=== PATIENT | male | born 1950 | race Caucasian/White ===

== ENCOUNTER 2017-10-01 16:48 | Emergency (ER) | payer MEDICARE, BC ==
[~2017-10-01] VITALS: Ht 172.7 cm; Wt 79.4 kg
--- NOTE | 2017-10-01 16:40 | Emergency Room Report ---
History of Present Illness General Source: Patient, EMS Present Illness HPI Patient is 67-year-old male who presented after increased seizure activity. The patient prior history of seizure disorder and lewy body dementia patient was noted to have recently had a seizure medications adjusted. The patient takes Keppra for seizures and previously had been given Keppra 3 times a day. The patient subsequently been noted to have Keppra 500mg 1 1/2 twice a day. The patient had been having increased nonproductive cough and chest pain. The patient had a recent sick contact Allergies: Coded Allergies: No Known Allergies (Unverified , 10/01/17) Patient History Past Medical History: see triage record Reviewed Nursing Documentation: PMH: Agreed, PSxH: Agreed Review of Systems All Other Systems: limited - by mental status Physical Exam Sp02 EP Interpretation: reviewed, normal General Appearance: normal inspection, well appearing, no apparent distress, alert Head: atraumatic ENT: normal ENT inspection, hearing grossly normal, normal voice Neck: normal inspection, full range of motion, supple, no bony tend Respiratory: normal inspection, lungs clear, normal breath sounds, no respiratory distress, no retraction, no wheezing Cardiovascular #1: regular rate, rhythm, no edema Gastrointestinal: normal inspection, normal bowel sounds, non tender, soft, no guarding, no hernia Genitourinary: no CVA tenderness Musculoskeletal: normal inspection, back normal, normal range of motion Neurologic: normal inspection, alert, responsive, art appraiser III-XII nml as tested Psychiatric: normal inspection, judgement/insight normal, mood/affect normal Skin: normal inspection, normal color, no rash Medical Decision Making Diagnostic Impression: Primary Impression: Seizure Additional Impression: Seizure disorder ER Course The patient presented after a witnessed seizure. Differential diagnosis included was not limited to subtherapeutic anticonvulsant level, acute infection, electrolyte abnormality among others.Because of complexity of patient 's case laboratory testing and imaging studies were ordered. EKG interpreted by me showed normal sinus rhythm with a rate of 66 specific T wave changes.The patient noted have a minimally elevated white blood count consistent with recent seizure. Laboratory testing was otherwise unremarkable. The patient was loaded with IV Keppra. The patient appears to have an upper respiratory infection at this time. The patient was advised to had taken extra dose of his Keppra at night. 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 The patient is advised to follow up with primary care doctor in 1-2 days. Patient is advised to return if any worsening condition or if any changes in status that are concerning. Labs Test 10/01/17 17:00 10/01/17 17:14 White Blood Count 12.6 K/UL (4.8-10.8) Red Blood Count 3.28 M/UL (4.70-6.10) Hemoglobin 11.1 G/DL (14.2-18.0) Hematocrit 34.9 % (42.0-52.0) Mean Corpuscular Volume 107 FL (80-99) Mean Corpuscular Hemoglobin 33.8 PG (27.0-31.0) Mean Corpuscular Hemoglobin Concent 31.7 G/DL (32.0-36.0) Red Cell Distribution Width 15.8 % (11.6-14.8) Platelet Count 261 K/UL (150-450) Mean Platelet Volume 5.4 FL (6.5-10.1) Neutrophils (%) (Auto) 72.9 % (45.0-75.0) Lymphocytes (%) (Auto) 14.5 % (20.0-45.0) Monocytes (%) (Auto) 9.5 % (1.0-10.0) Eosinophils (%) (Auto) 1.9 % (0.0-3.0) Basophils (%) (Auto) 1.2 % (0.0-2.0) Sodium Level 136 MMOL/L (136-145) Potassium Level 4.4 MMOL/L (3.5-5.1) Chloride Level 100 MMOL/L (98-107) Carbon Dioxide Level 22 MMOL/L (21-32) Anion Gap 14 mmol/L (5-15) Blood Urea Nitrogen 15 mg/dL (7-18) Creatinine 1.2 MG/DL (0.55-1.30) Estimat Glomerular Filtration Rate > 60 mL/min (>60) Glucose Level 114 MG/DL (74-106) Calcium Level 9.6 MG/DL (8.5-10.1) Total Bilirubin 0.5 MG/DL (0.2-1.0) Aspartate Amino Transf (AST/SGOT) 14 U/L (15-37) Alanine Aminotransferase (ALT/SGPT) < 6 U/L (12-78) Alkaline Phosphatase 115 U/L (46-116) Troponin I 0.000 ng/mL (0.000-0.056) Total Protein 7.2 G/DL (6.4-8.2) Albumin 3.7 G/DL (3.4-5.0) Globulin 3.5 g/dL Albumin/Globulin Ratio 1.1 (1.0-2.7) Urine Color Yellow Urine Appearance Clear Urine pH 5 (4.5-8.0) Urine Specific [place] 1.025 (1.005-1.035) Urine Protein 2+ (NEGATIVE) Urine Glucose (UA) Negative (NEGATIVE) Urine Ketones 1+ (NEGATIVE) Urine Occult Blood 1+ (NEGATIVE) Urine Nitrite Negative (NEGATIVE) Urine Bilirubin Negative (NEGATIVE) Urine Urobilinogen Normal MG/DL (0.0-1.0) Urine Leukocyte Esterase Negative (NEGATIVE) Urine RBC 2-4 /HPF (0 - 0) Urine WBC 0-2 /HPF (0 - 0) Urine Squamous Epithelial Cells None /LPF (NONE/OCC) Urine Amorphous Sediment Few /LPF (NONE) Urine Bacteria Few /HPF (NONE) EKG Diagnostic Results Rate: normal - 66 Rhythm: NSR ST Segments: no acute changes Status: improved Disposition: HOME, SELF-CARE Condition: Stable Angel Funez Oct 01, 2017 16:40
[2017-10-01 16:50] VITALS: BP 126/71
[2017-10-01] MEDS ORDERED: levETIRAcetam 500mg/NS100ml 100 ML IVPB ONE (17:00)
[2017-10-01 17:21] LABS: BASOPHILS % (AUTO) 1.2 % (0.0-2.0); EOSINOPHILS % (AUTO) 1.9 % (0.0-3.0); LYMPHOCYTES % (AUTO) 14.5 % (20.0-45.0); MEAN CORPUSCULAR HEMOGLOBIN 33.8 PG (27.0-31.0); MEAN CORPUSCULAR HGB CONC 31.7 G/DL (32.0-36.0); MEAN CORPUSCULAR VOLUME 107 FL (80-99); MEAN PLATELET VOLUME 5.4 FL (6.5-10.1); MONOCYTES % (AUTO) 9.5 % (1.0-10.0); NEUTROPHILS % (AUTO) 72.9 % (45.0-75.0); PLATELET COUNT 261 K/UL (150-450); RED BLOOD COUNT 3.28 M/UL (4.70-6.10); RED CELL DISTRIBUTION WIDTH 15.8 % (11.6-14.8); WHITE BLOOD COUNT 12.6 K/UL (4.8-10.8)
[2017-10-01 17:31] LABS: ANION GAP 14 mmol/L (5-15); CALCIUM 9.6 MG/DL (8.5-10.1); CARBON DIOXIDE 22 MMOL/L (21-32); CHLORIDE 100 MMOL/L (98-107); CREATININE 1.2 MG/DL (0.55-1.30); GLOMERULAR FILTRATION RATE > 60 mL/min (>60); POTASSIUM 4.4 MMOL/L (3.5-5.1); SODIUM 136 MMOL/L (136-145)
[2017-10-01 17:36] LABS: ALANINE AMINOTRANSFERASE < 6 U/L (12-78); ALBUMIN/GLOBULIN RATIO 1.1 (1.0-2.7); ASPARTATE AMINO TRANSFERASE 14 U/L (15-37); TOTAL PROTEIN 7.2 G/DL (6.4-8.2)
[2017-10-01 17:36] LABS: APPEARANCE,URINE CLEAR; KETONES,URINE 1+ (NEGATIVE); LEUKOCYTE ESTERASE ,URINE NEGATIVE (NEGATIVE); NITRITE,URINE NEGATIVE (NEGATIVE); PH,URINE 5 (4.5-8.0); PROTEIN,URINE 2+ (NEGATIVE); UROBILINOGEN,URINE NORMAL MG/DL (0.0-1.0)
[2017-10-01 17:43] LABS: AMORPHOUS SEDIMENT,UR FEW /LPF; BACTERIA,URINE FEW /HPF; WBC,URINE 0-2 /HPF (0 - 0)
[2017-10-01 18:04] VITALS: BP 120/68
[2017-10-01 18:14] VITALS: BP 120/68
--- NOTE | 2017-10-03 11:00 | Cardiology Report ---
APPROVED REPORT EKG Measurement Heart [id number] Normal sinus rhythm Nonspecific T wave abnormality Abnormal ECG
== END 2017-10-01 18:14 | disposition home or self-care (01) ==
LOC: EDBD 16:48 → EMR 18:08
DX: G40.409 Other generalized epilepsy and epileptic syndromes, not intractable, without status epilepticus (principal)
CPT/HCPCS: 36415; 80053; 81001; 84484; 85025; 86710; 93005; 96365; 99284; J1953

== ENCOUNTER 2017-10-15 16:32 | Inpatient (IN) | payer MEDICARE, BC ==
[~2017-10-15] VITALS: Ht 177.8 cm; Wt 89.8 kg
[2017-10-15 17:05] VITALS: BP 115/80
[2017-10-15 17:19] LABS: BASOPHILS % (AUTO) 0.8 % (0.0-2.0); EOSINOPHILS % (AUTO) 2.1 % (0.0-3.0); HEMATOCRIT 32.1 % (42.0-52.0); HEMOGLOBIN 10.5 G/DL (14.2-18.0); LYMPHOCYTES % (AUTO) 11.5 % (20.0-45.0); MEAN CORPUSCULAR VOLUME 107 FL (80-99); NEUTROPHILS % (AUTO) 73.6 % (45.0-75.0); PLATELET COUNT 117 K/UL (150-450); RED CELL DISTRIBUTION WIDTH 14.1 % (11.6-14.8); WHITE BLOOD COUNT 9.7 K/UL (4.8-10.8)
[2017-10-15 17:34] LABS: ANION GAP 14 mmol/L (5-15); BLOOD UREA NITROGEN 35 mg/dL (7-18); CALCIUM 7.9 MG/DL (8.5-10.1); CARBON DIOXIDE 21 MMOL/L (21-32); CHLORIDE 99 MMOL/L (98-107); CREATININE 1.1 MG/DL (0.55-1.30); POTASSIUM 4.4 MMOL/L (3.5-5.1); SODIUM 134 MMOL/L (136-145)
--- NOTE | 2017-10-15 17:35 | Emergency Room Report ---
History of Present Illness General Chief Complaint: Generalized Weakness Source: Family Member Present Illness HPI Patient presents with for complaints of general weakness and syncopal episode Patient had questionable near syncope versus syncopal Of her life felt that there was a moment of labs of consciousness Patient himself appears weak However he is awake and alert reports patient has amaury body dementia and is on Adderall Patient has neurologist another specialist physicians at [facility] to have increased his Adderall recently Patient otherwise himself denies any chest pain or shortness of breath denies any vomiting he did have diarrhea over the past several days Unknown regarding any obvious fevers Allergies: Coded Allergies: No Known Allergies (Unverified , 10/01/17) Patient History Past Medical History: see triage record Pertinent Family History: none Reviewed Nursing Documentation: PMH: Agreed, PSxH: Agreed Nursing Documentation-PMH Hx Hypertension: Yes Hx Seizures: Yes Review of Systems All Other Systems: negative except mentioned in HPI Physical Exam Vital Signs Date Time Temp Pulse Resp B/P (MAP) Pulse Ox O2 Delivery O2 Flow Rate FiO2 10/15/17 16:26 97.2 76 16 110/60 97 10/15/17 17:05 Room Air Sp02 EP Interpretation: reviewed, normal General Appearance: no apparent distress, other - appears pale and weak Head: normocephalic, atraumatic Eyes: bilateral eye PERRL, bilateral eye EOMI ENT: hearing grossly normal, TMs + canals normal, uvula midline, dry mucus membranes Neck: full range of motion, supple, no meningismus, no bony tend Respiratory: lungs clear, normal breath sounds, no rhonchi, no respiratory distress, no retraction, no accessory muscle use Cardiovascular #1: normal peripheral pulses, regular rate, rhythm, no edema, no gallop, no JVD, no murmur Gastrointestinal: normal bowel sounds, non tender, soft, no mass, no organomegaly, non-distended, no guarding, no hernia, no pulsatile mass, no rebound Genitourinary: no CVA tenderness Musculoskeletal: normal inspection Neurologic: oriented x3, responsive, canceling and cutting control clerk III-XII nml as tested, motor strength/ tone normal, sensory intact Psychiatric: mood/affect normal Skin: normal color, no rash, warm/dry, palpation normal Lymphatic: normal inspection, no adenopathy Procedures Critical Care Time Critical Care Time 70 minutes for multiple re\re evaluations: Diagnoses and findings concerning for life-threatening pathology and possible , not including any procedural time Medical Decision Making Diagnostic Impression: Primary Impression: Saddle pulmonary embolus Additional Impressions: Pancreatitis Syncope ER Course Patient is a fairly complex patient with multiple differential to consideration including but not limited to cardiac cardiopulmonary and vascular emergencies Patient's imaging study reveals some questionable abnormalities in the lower lung hayes CAT scan imaging dedicated to the lungs reveals bilateral emboli including a settling embolus Patient clinically maintaining appropriate oxygenation Hemodynamically also improving with blood pressure and general evaluation Patient however is extremely critical Initial Lovenox provided and the patient is initiated on heparin drip and will require ICU admission With regards to thrombolytics patient does not show, any hemodynamic pathology at this time patient does not appear short of breath is not tachypneic Platelets are low And patient will have further ICU admission Labs Test 10/15/17 16:50 10/15/17 17:30 10/15/17 21:10 White Blood Count 9.7 K/UL (4.8-10.8) Red Blood Count 3.00 M/UL (4.70-6.10) Hemoglobin 10.5 G/DL (14.2-18.0) Hematocrit 32.1 % (42.0-52.0) Mean Corpuscular Volume 107 FL (80-99) Mean Corpuscular Hemoglobin 35.0 PG (27.0-31.0) Mean Corpuscular Hemoglobin Concent 32.7 G/DL (32.0-36.0) Red Cell Distribution Width 14.1 % (11.6-14.8) Platelet Count 117 K/UL (150-450) Mean Platelet Volume 6.8 FL (6.5-10.1) Neutrophils (%) (Auto) 73.6 % (45.0-75.0) Lymphocytes (%) (Auto) 11.5 % (20.0-45.0) Monocytes (%) (Auto) 12.0 % (1.0-10.0) Eosinophils (%) (Auto) 2.1 % (0.0-3.0) Basophils (%) (Auto) 0.8 % (0.0-2.0) Sodium Level 134 MMOL/L (136-145) Potassium Level 4.4 MMOL/L (3.5-5.1) Chloride Level 99 MMOL/L (98-107) Carbon Dioxide Level 21 MMOL/L (21-32) Anion Gap 14 mmol/L (5-15) Blood Urea Nitrogen 35 mg/dL (7-18) Creatinine 1.1 MG/DL (0.55-1.30) Estimat Glomerular Filtration Rate > 60 mL/min (>60) Glucose Level 100 MG/DL (74-106) Lactic Acid Level 7.80 mmol/L (0.66-2.22) Calcium Level 7.9 MG/DL (8.5-10.1) Total Bilirubin 0.7 MG/DL (0.2-1.0) Aspartate Amino Transf (AST/SGOT) 21 U/L (15-37) Alanine Aminotransferase (ALT/SGPT) 8 U/L (12-78) Alkaline Phosphatase 95 U/L (46-116) Total Creatine Kinase 57 U/L (26-308) Creatine Kinase MB 2.0 NG/ML (0.0-3.6) Creatine Kinase MB Relative Index 3.5 Troponin I 0.011 ng/mL (0.000-0.056) Total Protein 5.5 G/DL (6.4-8.2) Albumin 3.0 G/DL (3.4-5.0) Globulin 2.5 g/dL Albumin/Globulin Ratio 1.2 (1.0-2.7) Lipase 1035 U/L (73-393) Urine Color Yellow Urine Appearance Clear Urine pH 6 (4.5-8.0) Urine Specific [place] 1.015 (1.005-1.035) Urine Protein 2+ (NEGATIVE) Urine Glucose (UA) Negative (NEGATIVE) Urine Ketones 2+ (NEGATIVE) Urine Occult Blood 3+ (NEGATIVE) Urine Nitrite Negative (NEGATIVE) Urine Bilirubin Negative (NEGATIVE) Urine Urobilinogen Normal MG/DL (0.0-1.0) Urine Leukocyte Esterase 1+ (NEGATIVE) Urine RBC 5-10 /HPF (0 - 0) Urine WBC 2-4 /HPF (0 - 0) Urine Squamous Epithelial Cells None /LPF (NONE/OCC) Urine Amorphous Sediment Few /LPF (NONE) Urine Bacteria Few /HPF (NONE) EKG Diagnostic Results Rate: normal Rhythm: NSR ST Segments: other - ST changes, anterolateral Rhythm Strip Diag. Results EP Interpretation: yes Rate: 78 Rhythm: NSR, no PVC's, no ectopy Chest X-Ray Diagnostic Results Chest X-Ray Diagnostic Results : Chest X-Ray Ordered: Yes # of Views/Limited/Complete: 1 View Indication: Chest Pain EP Interpretation: Yes Interpretation: no consolidation, no effusion, no pneumothorax Impression: No acute disease Electronically Signed by: Connie Quintero, DO CT/MRI/US Diagnostic Results CT/MRI/US Diagnostic Results : Impression CT abdomen pelvis bilateral lower lobe pulmonary embolism suspected incompletely visualized mild sigmoid diverticulitis no abscess CT chest: Bilateral central/low bar/subsegmental PE/including saddle PE no aortic dissection Last Vital Signs Date Time Temp Pulse Resp B/P (MAP) Pulse Ox O2 Delivery O2 Flow Rate FiO2 10/15/17 17:05 97.2 72 15 115/80 100 Room Air Status: improved Disposition: ADMITTED INPATIENT Condition: Critical Referrals: NOT CHOSEN IPA/,REFERRING (PCP) CONNIE QUINTERO D.O. Oct 15, 2017 17:35
[2017-10-15 17:48] LABS: ALANINE AMINOTRANSFERASE 8 U/L (12-78); ALBUMIN/GLOBULIN RATIO 1.2 (1.0-2.7); ALKALINE PHOSPHATASE 95 U/L (46-116); ASPARTATE AMINO TRANSFERASE 21 U/L (15-37); BILIRUBIN,TOTAL 0.7 MG/DL (0.2-1.0); CREATINE KINASE 57 U/L (26-308)
[2017-10-15 18:00] LABS: APPEARANCE,URINE CLEAR; BILIRUBIN, URINE NEGATIVE (NEGATIVE); GLUCOSE, URINE (UA) NEGATIVE (NEGATIVE); KETONES,URINE 2+ (NEGATIVE); LEUKOCYTE ESTERASE ,URINE 1+ (NEGATIVE); NITRITE,URINE NEGATIVE (NEGATIVE); PH,URINE 6 (4.5-8.0); PROTEIN,URINE 2+ (NEGATIVE); UROBILINOGEN,URINE NORMAL MG/DL (0.0-1.0)
[2017-10-15 18:05] LABS: COLOR,URINE YELLOW
[2017-10-15 18:20] VITALS: BP 120/79
[2017-10-15] MEDS ORDERED: ASPIRIN EC81 MG ORAL (18:55)
[2017-10-15] MEDS ORDERED: ATORVASTATIN CA20 MG ORAL (18:56)
[2017-10-15] MEDS ORDERED: SINEMET 25-1001 EAC1 ORAL (18:57)
[2017-10-15] MEDS ORDERED: SINEMET CR 50-1 EACH ORAL (18:58)
[2017-10-15 19:00] VITALS: BP 103/43
[2017-10-15] MEDS ORDERED: NAMENDA XR28 MG PO (19:02)
[2017-10-15] MEDS ORDERED: LEVETIRACETAM500 MG ORAL (19:03)
[2017-10-15] MEDS ORDERED: ADDERAL20 MG ORAL (19:05)
[2017-10-15] MEDS ORDERED: DONEPEZIL HCL10 MG ORAL (19:08)
[2017-10-15] MEDS ORDERED: DOXEPIN HCL10 MG ORAL (19:09)
[2017-10-15] MEDS ORDERED: VITAMIN D250000 UNI1 ORAL (19:10)
[2017-10-15] MEDS ORDERED: NEXIUM40 MG ORAL (19:11)
[2017-10-15] MEDS ORDERED: FLECAINIDE ACET50 MG ORAL (19:13)
[2017-10-15] MEDS ORDERED: FLUOXETINE HCL10 MG ORAL (19:15)
[2017-10-15] MEDS ORDERED: TOPROL XL25 MG ORAL (19:16)
[2017-10-15] MEDS ORDERED: NUPLAZID17 MG PO (19:17)
[2017-10-15] MEDS ORDERED: SEROQUEL25 MG ORAL (19:18)
[2017-10-15] MEDS ORDERED: ALTACE5 MG ORAL (19:19)
[2017-10-15] MEDS ORDERED: TADALAFIL5 MG PO (19:20)
[2017-10-15] MEDS ORDERED: Solu-MEDROL 125mg Inj IVP ONE (19:30)
[2017-10-15] MEDS ORDERED: Enoxaparin 80mg Inj SUBQ ONE (19:30)
[2017-10-15 21:00] VITALS: BP 145/59
[2017-10-15] MEDS ORDERED: Heparin 25,000u/D5W 500ml 500 ML IV SCH (21:30)
[2017-10-15] MEDS ORDERED: Heparin 5000 units/ml inj IV ONE (21:30)
[2017-10-15 22:00] VITALS: BP 153/103
[2017-10-15 23:00] VITALS: BP 158/86
[2017-10-15] MEDS ORDERED: Metoprolol Succinate XL 25mg tab ORAL ONE (23:45)
[2017-10-16] VITALS (15 sets, daily range): BP systolic 138–180; BP diastolic 74–100
[2017-10-16] MEDS ORDERED: Metoprolol Succinate XL 25mg tab ORAL SCH ×2 (09:00→21:00)
[2017-10-16 10:29] LABS: HEMATOCRIT 33.6 % (42.0-52.0); HEMOGLOBIN 10.8 G/DL (14.2-18.0); MEAN CORPUSCULAR VOLUME 107 FL (80-99); PLATELET COUNT 117 K/UL (150-450); RED BLOOD COUNT 3.14 M/UL (4.70-6.10); RED CELL DISTRIBUTION WIDTH 14.1 % (11.6-14.8); WHITE BLOOD COUNT 6.6 K/UL (4.8-10.8)
--- NOTE | 2017-10-16 10:34 | Diagnostic Imaging Report ---
Indication: Chest pain Technique: Continuous helical transaxial imaging of the chest was obtained from the thoracic inlet to the upper abdomen during rapid intravenous contrast administration. Arterial phase of enhancement obtained. Coronal 2-D reformats were also obtained and maximum intensity projection images in multiple planes. Study obtained in a Siemens sensation [address] Automatic Exposure Control was utilized. Total Dose length Product (DLP): 862.[address] Dose Index Volume (CTDIvol): 0.17, 12.62, 25.25, 22.41 mGy Comparison: None Findings: There is fairly extensive filling defect present within the central pulmonary arteries extending into lobar and segmental branches bilaterally consistent with pulmonary embolus. There is no reflux contrast into the IVC. There is no right heart enlargement identified on this examination. The lungs are essentially clear with the exception of some minimal posterior basilar reticulation. The aorta is normal in caliber. There is no dissection. Some calcification of the wall of the aorta noted. Visualized upper abdomen shows low-attenuation of the liver. IMPRESSION: Extensive bilateral pulmonary embolus. Atherosclerotic disease. Minimal posterior basal atelectasis Fatty liver [facility] has communicated the preliminary results to the Emergency Department. Their findings are largely concordant with this report. The CT scanner at [facility] is accredited by the [employer] and the scans are performed using dose optimization techniques as appropriate to a performed exam including Automatic Exposure control.
--- NOTE | 2017-10-16 10:37 | Diagnostic Imaging Report ---
Indication: Abdominal pain Technique: Continuous helical transaxial imaging of the abdomen and pelvis was obtained from the lung bases to the pubic symphysis during intravenous contrast administration. Coronal 2-D reformats were also obtained. Study obtained in a Siemens sensation [address] Automatic Exposure Control was utilized. Total Dose length Product (DLP): 929.[address] Dose Index Volume (CTDIvol): 16.14 mGy Comparison: None Findings: Partial visualization of filling defects within branches of the pulmonary artery demonstrated bilaterally on this study. Subsequent CTA was performed. Please refer to the CTA report. The liver is low in attenuation consistent with fatty infiltration. There is a small umbilical hernia containing fat. Aorta is moderately calcified. Perinephric stranding noted nonspecific in nature. No free fluid or free air identified. Diverticula noted in the colon. Perisigmoid soft tissue stranding noted, mild in degree consistent with diverticulitis. No abscess is identified. Urinary bladder is grossly unremarkable. There is no hydronephrosis. IMPRESSION: Sigmoid diverticulitis. No abscess. Fatty liver. Atherosclerotic disease Perinephric stranding nonspecific. Note: Patient has extensive bilateral pulmonary embolus. Please refer to the CTA chest for more information. The CT scanner at [facility] is accredited by the [employer] and the scans are performed using dose optimization techniques as appropriate to a performed exam including Automatic Exposure control.
[2017-10-16 10:51] LABS: ALANINE AMINOTRANSFERASE 10 U/L (12-78); ALBUMIN 3.2 G/DL (3.4-5.0); ALBUMIN/GLOBULIN RATIO 1.1 (1.0-2.7); ALKALINE PHOSPHATASE 95 U/L (46-116); ANION GAP 11 mmol/L (5-15); ASPARTATE AMINO TRANSFERASE 22 U/L (15-37); BILIRUBIN,TOTAL 0.7 MG/DL (0.2-1.0); BLOOD UREA NITROGEN 28 mg/dL (7-18); CALCIUM 7.6 MG/DL (8.5-10.1); CARBON DIOXIDE 21 MMOL/L (21-32); CHLORIDE 101 MMOL/L (98-107); POTASSIUM 4.3 MMOL/L (3.5-5.1); SODIUM 133 MMOL/L (136-145)
[2017-10-16] MEDS ORDERED: Heparin 5000 units/ml inj IV ONE (11:30)
[2017-10-16] MEDS: Heparin 25,000u/D5W 500ml (VTE/AF) IV SCH ×2 (12:11→20:16)
--- NOTE | 2017-10-16 12:22 | Diagnostic Imaging Report ---
Indication: Chest pain Comparison: None A single view chest radiograph was obtained. Findings: Cardiomediastinal appearance is within normal limits for age. Aorta is mildly calcified. Pulmonary vascularity is appropriate. The diaphragmatic contour is smooth and costophrenic angles are sharp. No pleural effusions are identified. The bones are unremarkable. Impression: No acute findings
--- NOTE | 2017-10-16 12:55 | GI Initial Consult Note ---
[facility] N.P. 10/16/17 1255: History of Present Illness General Date patient seen: Oct 16, 2017 Time patient seen: 12:54 Reason for Hospitalization: Generalized Weakness Referring physician: JAIRO JIMENEZ Reason for Consultation: PANCREATITIS Present Illness HPI Patient presents with for complaints of general weakness and syncopal episode Patient had questionable near syncope versus syncopal Of her life felt that there was a moment of labs of consciousness Patient himself appears weak However he is awake and alert reports patient has low body dementia and is on Adderall Patient has neurologist another specialist physicians at [facility] to have increased his Adderall recently Patient otherwise himself denies any chest pain or shortness of breath denies any vomiting he did have diarrhea over the past several days Unknown regarding any obvious fevers GI consulted for elevated lipase. HPI as noted above. Patient seen in ER, awake A&Ox3 NAD with no active s/sx of N/V/D. Denies any abdominal pain at this time. C/o of diarrhea x 4-5 days. Abdomen is soft, non tender, tympanic. Pt states he is able to pass gas. States he has had an upper endoscopy, but unsure. No history of colonoscopy. The patient admit to being a ETOH user, possible abuser, has about 4 glasses of wine daily. Denies tobacco and drug use. CT AP shows PE, sigmoid diverticulitis and fatty liver. He presents today with macrocytic hyperchromic anemia, elevated lipase levels and hypoalbuminemia. Procedure: CT Abdomen Pelvis w/Contrast Indication: Abdominal pain IMPRESSION: See full report. Sigmoid diverticulitis. No abscess. Fatty liver. Atherosclerotic disease Perinephric stranding nonspecific. Note: Patient has extensive bilateral pulmonary embolus. Please refer to the CTA chest for more information. Home Meds Reported Medications Tadalafil (Tadalafil) 5 Mg Tablet, 5 MG PO ONCE Y for ERECTILE DYSFUNCTION, TAB 10/15/17 Ramipril* (ALTACE*) 5 Mg Capsule, 5 MG ORAL TWICE A DAY, CAP 10/15/17 Quetiapine Fumarate* (SEROQUEL*) 25 Mg Tablet, 25 MG ORAL TWICE A DAY Y for Agitation, TAB 10/15/17 Pimavanserin Tartrate (Nuplazid) 17 Mg Tablet, 17 MG PO BID, TAB 10/15/17 Metoprolol Succinate* (TOPROL XL*) 25 Mg Tab.er.24h, 25 MG ORAL BID, TAB 10/15/17 Fluoxetine Hcl* (FLUOXETINE HCL*) 10 Mg Capsule, 10 MG ORAL DAILY, CAP 10/15/17 Flecainide Acetate* (TAMBOCOR*) 50 Mg Tablet, 50 MG ORAL TWICE A DAY, TAB 10/15/17 Esomeprazole Magnesium (NEXIUM) 40 Mg Capsule.dr, 40 MG ORAL BIDAC, CAP 10/15/17 Ergocalciferol (Vitamin D2)* (VITAMIN D*) 50,000 Unit Capsule, 24394 UNIT ORAL ONCE A WEEK, CAP 10/15/17 Doxepin HCl (Doxepin HCl) 10 Mg Capsule, 10 MG ORAL BEDTIME, #30 CAP 0 Refills 10/15/17 Donepezil Hcl* (DONEPEZIL HCL*) 10 Mg Tablet, 10 MG ORAL DAILY, TAB 10/15/17 Dextroamphetamine/Amphetamine (Adderall 20 mg Tablet) 20 Mg Tablet, 7.5 MG ORAL DAILY, TAB 10/15/17 Levetiracetam* (LEVETIRACETAM*) 500 Mg Tablet, 1000 MG ORAL TWICE A DAY, #60 TAB 0 Refills 10/15/17 Memantine Hcl (NAMENDA XR) 28 Mg Cap.spr.24, 28 MG PO DAILY, CAP 10/15/17 Carbidopa/Levodopa Cr 50-200* (SINEMET CR 50-200 TABLET*) 1 Each Tablet.er, 2 TAB ORAL QHS, TAB 10/15/17 Carbidopa/Levodopa 25-100 Mg* (SINEMET 25-100 MG TABLET*) 1 Each Tablet, 5 TAB ORAL THREE TIMES A DAY, TAB 10/15/17 Atorvastatin Calcium* (ATORVASTATIN CALCIUM*) 20 Mg Tablet, 20 MG ORAL BEDTIME, TAB 10/15/17 Aspirin Ec* (ASPIRIN EC*) 81 Mg Tablet.dr, 81 MG ORAL DAILY, TAB 10/15/17 Med list reviewed/reconciled: Yes Allergies: Coded Allergies: No Known Allergies (Unverified , 10/01/17) Patient History History Provided By: Patient, Medical Record PMH Narrative Past Medical History: see triage record Pertinent Family History: none Reviewed Nursing Documentation: PMH: Agreed, PSxH: Agreed Nursing Documentation-PMH Hx Hypertension: Yes Hx Seizures: Yes Social History: Reports: alcohol use - 4 glasses of wine daily Review of Systems All Other Systems: negative except mentioned in HPI Physical Exam Vital Signs Date Time Temp Pulse Resp B/P (MAP) Pulse Ox O2 Delivery O2 Flow Rate FiO2 10/15/17 16:26 97.2 76 16 110/60 97 10/15/17 17:05 Room Air 10/15/17 21:00 2.0 10/16/17 07:20 96 Sp02 EP Interpretation: reviewed, normal Labs Laboratory Tests Test 10/15/17 16:50 10/15/17 17:30 10/15/17 21:10 10/16/17 10:15 White Blood Count 9.7 K/UL (4.8-10.8) 6.6 K/UL (4.8-10.8) Red Blood Count 3.00 M/UL (4.70-6.10) L 3.14 M/UL (4.70-6.10) L Hemoglobin 10.5 G/DL (14.2-18.0) L 10.8 G/DL (14.2-18.0) L Hematocrit 32.1 % (42.0-52.0) L 33.6 % (42.0-52.0) L Mean Corpuscular Volume 107 FL (80-99) H 107 FL (80-99) H Mean Corpuscular Hemoglobin 35.0 PG (27.0-31.0) H 34.3 PG (27.0-31.0) H Mean Corpuscular Hemoglobin Concent 32.7 G/DL (32.0-36.0) 32.0 G/DL (32.0-36.0) Red Cell Distribution Width 14.1 % (11.6-14.8) 14.1 % (11.6-14.8) Platelet Count 117 K/UL (150-450) L 117 K/UL (150-450) L Mean Platelet Volume 6.8 FL (6.5-10.1) 7.0 FL (6.5-10.1) Neutrophils (%) (Auto) 73.6 % (45.0-75.0) % (45.0-75.0) Lymphocytes (%) (Auto) 11.5 % (20.0-45.0) L % (20.0-45.0) Monocytes (%) (Auto) 12.0 % (1.0-10.0) H % (1.0-10.0) Eosinophils (%) (Auto) 2.1 % (0.0-3.0) % (0.0-3.0) Basophils (%) (Auto) 0.8 % (0.0-2.0) % (0.0-2.0) Sodium Level 134 MMOL/L (136-145) L 133 MMOL/L (136-145) L Potassium Level 4.4 MMOL/L (3.5-5.1) 4.3 MMOL/L (3.5-5.1) Chloride Level 99 MMOL/L (98-107) 101 MMOL/L (98-107) Carbon Dioxide Level 21 MMOL/L (21-32) 21 MMOL/L (21-32) Anion Gap 14 mmol/L (5-15) 11 mmol/L (5-15) Blood Urea Nitrogen 35 mg/dL (7-18) H 28 mg/dL (7-18) H Creatinine 1.1 MG/DL (0.55-1.30) 1.0 MG/DL (0.55-1.30) Estimat Glomerular Filtration Rate > 60 mL/min (>60) > 60 mL/min (>60) Glucose Level 100 MG/DL (74-106) 274 MG/DL (74-106) #H Lactic Acid Level 7.80 mmol/L (0.66-2.22) H 2.10 mmol/L (0.66-2.22) 1.60 mmol/L (0.66-2.22) Calcium Level 7.9 MG/DL (8.5-10.1) L 7.6 MG/DL (8.5-10.1) L Total Bilirubin 0.7 MG/DL (0.2-1.0) 0.7 MG/DL (0.2-1.0) Aspartate Amino Transf (AST/SGOT) 21 U/L (15-37) 22 U/L (15-37) Alanine Aminotransferase (ALT/SGPT) 8 U/L (12-78) L 10 U/L (12-78) L Alkaline Phosphatase 95 U/L (46-116) 95 U/L (46-116) Total Creatine Kinase 57 U/L (26-308) Creatine Kinase MB 2.0 NG/ML (0.0-3.6) Creatine Kinase MB Relative Index 3.5 Troponin I 0.011 ng/mL (0.000-0.056) Total Protein 5.5 G/DL (6.4-8.2) L 6.0 G/DL (6.4-8.2) L Albumin 3.0 G/DL (3.4-5.0) L 3.2 G/DL (3.4-5.0) L Globulin 2.5 g/dL 2.8 g/dL Albumin/Globulin Ratio 1.2 (1.0-2.7) 1.1 (1.0-2.7) Lipase 1035 U/L (73-393) H Urine Color Yellow Urine Appearance Clear Urine pH 6 (4.5-8.0) Urine Specific [place] 1.015 (1.005-1.035) Urine Protein 2+ (NEGATIVE) H Urine Glucose (UA) Negative (NEGATIVE) Urine Ketones 2+ (NEGATIVE) H Urine Occult Blood 3+ (NEGATIVE) H Urine Nitrite Negative (NEGATIVE) Urine Bilirubin Negative (NEGATIVE) Urine Urobilinogen Normal MG/DL (0.0-1.0) Urine Leukocyte Esterase 1+ (NEGATIVE) H Urine RBC 5-10 /HPF (0 - 0) H Urine WBC 2-4 /HPF (0 - 0) Urine Squamous Epithelial Cells None /LPF (NONE/OCC) Urine Amorphous Sediment Few /LPF (NONE) H Urine Bacteria Few /HPF (NONE) Differential Total Cells Counted 100 Neutrophils % (Manual) 90 % (45-75) H Lymphocytes % (Manual) 7 % (20-45) L Monocytes % (Manual) 3 % (1-10) Eosinophils % (Manual) 0 % (0-3) Basophils % (Manual) 0 % (0-2) Band Neutrophils 0 % (0-8) Platelet Estimate Decreased L Platelet Morphology Normal Hypochromasia 1+ Macrocytosis 1+ Prothrombin Time 10.7 SEC (9.30-11.50) Prothromb Time International Ratio 1.0 (0.9-1.1) Activated Partial Thromboplast Time 61 SEC (23-33) H General Appearance: well appearing, no apparent distress, alert Head: normocephalic EENT: PERRL/EOMI, normal ENT inspection Neck: supple Respiratory: normal breath sounds, no respiratory distress Cardiovascular: normal rate Gastrointestinal: normal inspection, non tender, soft, normal bowel sounds, non -distended, other - abdominal bloating Rectal: deferred Genitourinary: deferred Musculoskeletal: normal inspection, back normal Neurologic: normal inspection, alert, oriented x3, responsive Psychiatric: normal inspection, judgement/insight normal, memory normal Skin: normal inspection, normal color, no rash, warm/dry, palpation normal, well hydrated Lymphatic: normal inspection, no adenopathy Current Medications Current Medications Medications (Trade) Dose Ordered Sig/Patricia Route PRN Reason Start Time Stop Time Status Last Admin Dose Admin Aspirin (Ecotrin) 81 mg DAILY ORAL 10/17/17 09:00 11/16/17 08:59 Atorvastatin Calcium (Lipitor) 20 mg BEDTIME ORAL 10/16/17 21:00 11/15/17 20:59 Carbidopa/Levodopa (Sinemet CR 50/ 200) 2 ea QHS ORAL 10/16/17 21:00 11/15/17 20:59 UNV Dextrose (Dextrose 50%) STAT PRN IV Hypoglycemia 10/16/17 09:30 11/15/17 09:29 Donepezil HCl (Aricept) 10 mg DAILY ORAL 10/17/17 09:00 11/16/17 08:59 Doxepin HCl (SINEquan) 10 mg BEDTIME ORAL 10/16/17 21:00 11/15/17 20:59 Ergocalciferol (Drisdol) 50,000 intlu QWEEK ORAL 10/17/17 09:00 11/16/17 08:59 Flecainide Acetate (Tambocor) 50 mg Q12HR ORAL 10/16/17 13:00 11/15/17 12:59 Fluoxetine HCl (PROzac) 10 mg DAILY ORAL 10/17/17 09:00 11/16/17 08:59 Heparin Sodium/ Dextrose 500 ml @ 20.956 mls/ hr Q24H IV 10/16/17 11:30 11/15/17 11:29 10/16/17 12:11 Hydralazine HCl (Apresoline) 25 mg Q6H PRN ORAL SBP > 160mmHg 10/16/17 13:00 11/15/17 12:59 Levetiracetam (Keppra) 1,000 mg Q12HR ORAL 10/16/17 14:00 11/15/17 13:59 Memantine (Namenda) 10 mg Q12HR ORAL 10/16/17 21:00 11/15/17 20:59 Metoprolol Succinate (Toprol XL) 25 mg Q12HR ORAL 10/16/17 21:00 11/15/17 20:59 Ramipril (Altace) 5 mg TWICE A DAY ORAL 10/16/17 18:00 11/15/17 17:59 Sodium Chloride 1,000 ml @ 150 mls/hr Q6H40M IVLG 10/16/17 13:00 11/15/17 12:59 GI: Plan Problems: (1) Sigmoid diverticulitis (2) Acute alcoholic pancreatitis (3) Hypoalbuminemia (4) Anemia (5) Pancreatitis Plan macrocytic, hyperchromic anemia CT AP reviewed >> PE, sigmoid diverticulitis, fatty liver anemia work up OB stool r/o GI bleed monitor H&H, prn transfusions send for cdiff/stool studies ppi abx >> zosyn IV/PO hydration on regular diet, downgrade if patient has abdominal pain repeat imaging prn fu labs, B12/folate, lipase levels, lipid panel will need outpatient colonoscopy x 2 months after dc for diverticulitis Discussed with Dr. Rouse. Thank you for this patient referral, we will follow. QAMAR ROUSE 10/22/17 1224: History of Present Illness General Reason for Hospitalization: Generalized Weakness Present Illness Home Meds Reported Medications Tadalafil (Tadalafil) 5 Mg Tablet, 5 MG PO ONCE Y for ERECTILE DYSFUNCTION, TAB 10/15/17 Ramipril* (ALTACE*) 5 Mg Capsule, 5 MG ORAL TWICE A DAY, CAP 10/15/17 Quetiapine Fumarate* (SEROQUEL*) 25 Mg Tablet, 25 MG ORAL TWICE A DAY Y for Agitation, TAB 10/15/17 Pimavanserin Tartrate (Nuplazid) 17 Mg Tablet, 17 MG PO BID, TAB 10/15/17 Metoprolol Succinate* (TOPROL XL*) 25 Mg Tab.er.24h, 25 MG ORAL BID, TAB 10/15/17 Fluoxetine Hcl* (FLUOXETINE HCL*) 10 Mg Capsule, 10 MG ORAL DAILY, CAP 10/15/17 Flecainide Acetate* (TAMBOCOR*) 50 Mg Tablet, 50 MG ORAL TWICE A DAY, TAB 10/15/17 Esomeprazole Magnesium (NEXIUM) 40 Mg Capsule.dr, 40 MG ORAL BIDAC, CAP 10/15/17 Ergocalciferol (Vitamin D2)* (VITAMIN D*) 50,000 Unit Capsule, 27425 UNIT ORAL ONCE A WEEK, CAP 10/15/17 Doxepin HCl (Doxepin HCl) 10 Mg Capsule, 10 MG ORAL BEDTIME, #30 CAP 0 Refills 10/15/17 Donepezil Hcl* (DONEPEZIL HCL*) 10 Mg Tablet, 10 MG ORAL DAILY, TAB 10/15/17 Dextroamphetamine/Amphetamine (Adderall 20 mg Tablet) 20 Mg Tablet, 7.5 MG ORAL DAILY, TAB 10/15/17 Levetiracetam* (LEVETIRACETAM*) 500 Mg Tablet, 1000 MG ORAL TWICE A DAY, #60 TAB 0 Refills 10/15/17 Memantine Hcl (NAMENDA XR) 28 Mg Cap.spr.24, 28 MG PO DAILY, CAP 10/15/17 Carbidopa/Levodopa Cr 50-200* (SINEMET CR 50-200 TABLET*) 1 Each Tablet.er, 2 TAB ORAL QHS, TAB 10/15/17 Carbidopa/Levodopa 25-100 Mg* (SINEMET 25-100 MG TABLET*) 1 Each Tablet, 5 TAB ORAL THREE TIMES A DAY, TAB 10/15/17 Atorvastatin Calcium* (ATORVASTATIN CALCIUM*) 20 Mg Tablet, 20 MG ORAL BEDTIME, TAB 10/15/17 Aspirin Ec* (ASPIRIN EC*) 81 Mg Tablet.dr, 81 MG ORAL DAILY, TAB 10/15/17 Allergies: Coded Allergies: No Known Allergies (Unverified , 10/01/17) GI: Plan Plan The patient was seen and examined at bedside and all new and available data was reviewed in the patients chart. I agree with the above findings, impression and plan. (Patient seen earlier today. Signature stamp does not reflect patient encounter time.). - MD Brianna Samson,[facility] N.P[facility]raddha Oct 16, 2017 12:55 QAMAR ROUSE Oct 22, 2017 12:24
--- NOTE | 2017-10-16 12:57 | Cardiology Report ---
APPROVED REPORT EKG Measurement Heart [id number] ID [id number] Normal sinus rhythm Prolonged QT Abnormal ECG
[2017-10-16] MEDS ORDERED: Piperacillin/Tazobactam 3.375 GM in D5W 110 ML IVPB SCH (16:00)
[2017-10-16] MEDS: Metoprolol Succinate XL 25mg tab ORAL SCH ×2 (16:25→20:26)
--- NOTE | 2017-10-16 16:51 | Consultation ---
History of Present Illness General Date patient seen: Oct 16, 2017 Time patient seen: 15:30 Chief Complaint: Generalized Weakness Referring physician: JAIRO JIMENEZ Reason for Consultation: etensive pulm emboli Present Illness HPI 67 y/old male with PMH of HTN, Lewy bodies dementia presented with his with complaints of general weakness and syncopal episode Patient had questionable near syncope versus syncopal episode as per description Per patient is taking Adderall, dose was recently increased as per [facility] neurologist Patient himself denied any chest pain or shortness of breath denies abdominal pain, nausea, vomiting he reported diarrhea over the past several days upon evaluation in ED VSS CTA with extensive bilateral PE CT A/P + sigmoid diverticulitis lipase elevated to 1035 elevated lactic acid -7.8 mild anemia with thrombocytopenia mild renal insufficiency BUN-35 creat-1.1 patient started on a/coagulation and admitted for further management Allergies: Coded Allergies: No Known Allergies (Unverified , 10/01/17) Medication History Scheduled Aspirin Ec* (Aspirin Ec*), 81 MG ORAL DAILY, (Reported) Atorvastatin Calcium* (Atorvastatin Calcium*), 20 MG ORAL BEDTIME, (Reported) Carbidopa/Levodopa 25-100 Mg* (Sinemet 25-100 Mg Tablet*), 5 TAB ORAL THREE TIMES A DAY, (Reported) Carbidopa/Levodopa Cr 50-200* (Sinemet Cr 50-200 Tablet*), 2 TAB ORAL QHS, ( Reported) Dextroamphetamine/Amphetamine (Adderall 20 mg Tablet), 7.5 MG ORAL DAILY, ( Reported) Donepezil Hcl* (Donepezil Hcl*), 10 MG ORAL DAILY, (Reported) Doxepin HCl (Doxepin HCl), 10 MG ORAL BEDTIME, (Reported) Ergocalciferol (Vitamin D2)* (Vitamin D*), 50,000 UNIT ORAL ONCE A WEEK, ( Reported) Esomeprazole Magnesium (Nexium), 40 MG ORAL BIDAC, (Reported) Flecainide Acetate* (Tambocor*), 50 MG ORAL TWICE A DAY, (Reported) Fluoxetine Hcl* (Fluoxetine Hcl*), 10 MG ORAL DAILY, (Reported) Levetiracetam* (Levetiracetam*), 1,000 MG ORAL TWICE A DAY, (Reported) Memantine Hcl (Namenda Xr), 28 MG PO DAILY, (Reported) Metoprolol Succinate* (Toprol Xl*), 25 MG ORAL BID, (Reported) Pimavanserin Tartrate (Nuplazid), 17 MG PO BID, (Reported) Ramipril* (Altace*), 5 MG ORAL TWICE A DAY, (Reported) Scheduled PRN Quetiapine Fumarate* (Seroquel*), 25 MG ORAL TWICE A DAY PRN for Agitation, ( Reported) Tadalafil (Tadalafil), 5 MG PO ONCE PRN for ERECTILE DYSFUNCTION, (Reported) Patient History Healthcare decision maker GIGI DOTTIEALICIA Resuscitation status Advanced Directive on File No Review of Systems Constitutional: Reports: weakness Eye: Reports: no symptoms ENT: Reports: no symptoms Respiratory: Reports: see HPI Cardiovascular: Reports: other - hx of HTN Gastrointestinal: Reports: see HPI, diarrhea Genitourinary: Reports: no symptoms Musculoskeletal: Reports: no symptoms Skin: Reports: no symptoms Psychiatric: Reports: depressed feelings, other - Lewy bodies dementia Neurological: Reports: headache Endocrine: Reports: no symptoms Hematologic/Lymphatic: Reports: anemia Physical Exam General Appearance: WD/WN, no apparent distress, alert Lines, tubes and drains: peripheral HEENT: normocephalic, atraumatic, anicteric, mucous membranes moist Neck: non-tender, normal alignment, supple Respiratory/Chest: lungs clear, no respiratory distress, no accessory muscle use Cardiovascular/Chest: normal rate, regular rhythm - sr ON TELE Abdomen: normal bowel sounds, non tender, soft Extremities: normal range of motion, non-tender Skin Exam: warm/dry Neurologic: alert, oriented x 3, responsive Musculoskeletal: normal muscle bulk Last 24 Hour Vital Signs Date Time Temp Pulse Resp B/P (MAP) Pulse Ox O2 Delivery O2 Flow Rate FiO2 10/16/17 16:25 80 178/95 10/16/17 15:20 98.1 80 15 178/95 98 Nasal Cannula 2.0 10/16/17 11:30 98.3 80 15 161/89 98 Room Air 10/16/17 09:30 97.8 108 16 138/74 98 Nasal Cannula 2.0 10/16/17 07:52 98.2 69 17 180/98 94 Room Air 10/16/17 07:20 69 17 Nasal Cannula 2.0 96 10/16/17 07:02 56 11 173/95 100 Nasal Cannula 2.0 10/16/17 06:00 59 15 169/96 100 Nasal Cannula 2.0 10/16/17 05:00 66 13 169/99 100 Nasal Cannula 2.0 10/16/17 04:00 57 10 169/75 98 Nasal Cannula 2.0 10/16/17 03:00 61 10 160/80 98 Nasal Cannula 2.0 10/16/17 02:00 57 14 171/100 95 Nasal Cannula 2.0 10/16/17 01:00 65 11 169/93 97 Nasal Cannula 2.0 10/16/17 00:00 69 17 168/83 99 Nasal Cannula 2.0 10/15/17 23:59 78 150/108 10/15/17 23:00 70 15 158/86 96 Nasal Cannula 2.0 10/15/17 22:00 76 18 153/103 99 Nasal Cannula 2.0 10/15/17 21:00 82 21 145/59 99 Nasal Cannula 2.0 10/15/17 19:00 86 21 103/43 98 Room Air 10/15/17 18:20 97.2 80 17 120/79 99 Room Air 10/15/17 17:05 97.2 72 15 115/80 100 Room Air Intake and Output 10/15/17 10/16/17 19:00 07:00 Output Total 100 ml Balance -100 ml Output Urine Total 100 ml Laboratory Tests Test 10/15/17 17:30 10/15/17 21:10 10/16/17 10:15 Urine Color Yellow Urine Appearance Clear Urine pH 6 (4.5-8.0) Urine Specific [place] 1.015 (1.005-1.035) Urine Protein 2+ (NEGATIVE) H Urine Glucose (UA) Negative (NEGATIVE) Urine Ketones 2+ (NEGATIVE) H Urine Occult Blood 3+ (NEGATIVE) H Urine Nitrite Negative (NEGATIVE) Urine Bilirubin Negative (NEGATIVE) Urine Urobilinogen Normal MG/DL (0.0-1.0) Urine Leukocyte Esterase 1+ (NEGATIVE) H Urine RBC 5-10 /HPF (0 - 0) H Urine WBC 2-4 /HPF (0 - 0) Urine Squamous Epithelial Cells None /LPF (NONE/OCC) Urine Amorphous Sediment Few /LPF (NONE) H Urine Bacteria Few /HPF (NONE) Lactic Acid Level 2.10 mmol/L (0.66-2.22) 1.60 mmol/L (0.66-2.22) White Blood Count 6.6 K/UL (4.8-10.8) Red Blood Count 3.14 M/UL (4.70-6.10) L Hemoglobin 10.8 G/DL (14.2-18.0) L Hematocrit 33.6 % (42.0-52.0) L Mean Corpuscular Volume 107 FL (80-99) H Mean Corpuscular Hemoglobin 34.3 PG (27.0-31.0) H Mean Corpuscular Hemoglobin Concent 32.0 G/DL (32.0-36.0) Red Cell Distribution Width 14.1 % (11.6-14.8) Platelet Count 117 K/UL (150-450) L Mean Platelet Volume 7.0 FL (6.5-10.1) Neutrophils (%) (Auto) % (45.0-75.0) Lymphocytes (%) (Auto) % (20.0-45.0) Monocytes (%) (Auto) % (1.0-10.0) Eosinophils (%) (Auto) % (0.0-3.0) Basophils (%) (Auto) % (0.0-2.0) Differential Total Cells Counted 100 Neutrophils % (Manual) 90 % (45-75) H Lymphocytes % (Manual) 7 % (20-45) L Monocytes % (Manual) 3 % (1-10) Eosinophils % (Manual) 0 % (0-3) Basophils % (Manual) 0 % (0-2) Band Neutrophils 0 % (0-8) Platelet Estimate Decreased L Platelet Morphology Normal Hypochromasia 1+ Macrocytosis 1+ Prothrombin Time 10.7 SEC (9.30-11.50) Prothromb Time International Ratio 1.0 (0.9-1.1) Activated Partial Thromboplast Time 61 SEC (23-33) H Sodium Level 133 MMOL/L (136-145) L Potassium Level 4.3 MMOL/L (3.5-5.1) Chloride Level 101 MMOL/L (98-107) Carbon Dioxide Level 21 MMOL/L (21-32) Anion Gap 11 mmol/L (5-15) Blood Urea Nitrogen 28 mg/dL (7-18) H Creatinine 1.0 MG/DL (0.55-1.30) Estimat Glomerular Filtration Rate > 60 mL/min (>60) Glucose Level 274 MG/DL (74-106) #H Calcium Level 7.6 MG/DL (8.5-10.1) L Total Bilirubin 0.7 MG/DL (0.2-1.0) Aspartate Amino Transf (AST/SGOT) 22 U/L (15-37) Alanine Aminotransferase (ALT/SGPT) 10 U/L (12-78) L Alkaline Phosphatase 95 U/L (46-116) Total Protein 6.0 G/DL (6.4-8.2) L Albumin 3.2 G/DL (3.4-5.0) L Globulin 2.8 g/dL Albumin/Globulin Ratio 1.1 (1.0-2.7) Height (Feet): 5 Height (Inches): 11.00 Weight (Pounds): 165 Medications Current Medications Medications (Trade) Dose Ordered Sig/Patricia Route PRN Reason Start Time Stop Time Status Last Admin Dose Admin Aspirin (Ecotrin) 81 mg DAILY ORAL 10/17/17 09:00 11/16/17 08:59 Atorvastatin Calcium (Lipitor) 20 mg BEDTIME ORAL 10/16/17 21:00 11/15/17 20:59 Carbidopa/Levodopa (Sinemet 25/100) 5 ea THREE TIMES A DAY ORAL 10/16/17 18:00 11/15/17 17:59 Carbidopa/Levodopa (Sinemet CR 50/ 200) 2 ea QHS ORAL 10/16/17 21:00 11/15/17 20:59 Dextrose (Dextrose 50%) STAT PRN IV Hypoglycemia 10/16/17 09:30 11/15/17 09:29 Donepezil HCl (Aricept) 10 mg DAILY ORAL 10/17/17 09:00 11/16/17 08:59 Doxepin HCl (SINEquan) 10 mg BEDTIME ORAL 10/16/17 21:00 11/15/17 20:59 Ergocalciferol (Drisdol) 50,000 intlu QWEEK ORAL 10/17/17 09:00 11/16/17 08:59 Flecainide Acetate (Tambocor) 50 mg Q12HR ORAL 10/16/17 13:00 1/26/18 12:59 Fluoxetine HCl (PROzac) 10 mg DAILY ORAL 10/17/17 09:00 11/16/17 08:59 Heparin Sodium/ Dextrose 500 ml @ 20.956 mls/ hr Q24H IV 10/16/17 11:30 11/15/17 11:29 10/16/17 12:11 Hydralazine HCl (Apresoline) 25 mg Q6H PRN ORAL SBP > 160mmHg 10/16/17 13:00 11/15/17 12:59 Influenza Virus Vaccine Quadrival (Flu Vaccine Quadrivalent) 0.5 ml ONCE ONCE IM 10/16/17 20:00 10/16/17 20:01 Levetiracetam (Keppra) 1,000 mg Q12HR ORAL 10/16/17 14:00 11/15/17 13:59 10/16/17 16:25 Memantine (Namenda) 10 mg Q12HR ORAL 10/16/17 21:00 11/15/17 20:59 Metoprolol Succinate (Toprol XL) 25 mg Q12HR ORAL 10/16/17 15:45 11/15/17 15:44 10/16/17 16:25 Piperacillin Sod/ Tazobactam Sod 3.375 gm/Dextrose 110 ml @ 27.5 mls/hr EVERY 8 HOURS IVPB 10/16/17 16:00 10/21/17 15:59 Pneumococcal Polyvalent Vaccine (Pneumovax) 0.5 ml ONCE ONCE IM 10/16/17 20:00 10/16/17 20:01 Ramipril (Altace) 5 mg TWICE A DAY ORAL 10/16/17 18:00 11/15/17 17:59 Sodium Chloride 1,000 ml @ 150 mls/hr Q6H40M IVLG 10/16/17 13:00 11/15/17 12:59 10/16/17 16:31 Vancomycin HCl (Vanco rx to dose) 1 ea DAILY PRN MISC Per rx protocol 10/16/17 14:45 11/15/17 14:44 Vancomycin HCl 1 gm/Dextrose 275 ml @ 183.708 mls/hr Q12HR@0600,1800 IVPB 10/16/17 18:00 10/21/17 17:59 Assessment/Plan Assessment/Plan ASSESSMENT extensive bilateral PE syncopal vs presyncopal episode bacteremia possible sepsis sigmoid diverticulitis pancreatitis lactic acidosis Lewy body dementia HTN anemia thrombocytopenia YUAN likely due to dehydration 2 to diarrhea PLAN OF CARE VI Heparin gtt and tomorrow start Coumadin to bridge to therapeutic INR watch PMT count and HH O2 HHN prn empiric abx ID follows fup with final cx, preliminary bl cx +GPC aggressive hydration , monitor renal parameters, lytes, correct as needed, avoid nephrotoxic GI follows stool studies, stool C dif monitor counts, BP management with current regimen and optimize as needed neuro eval pending syncope vs presyncopal episode possibly due to dehydration vs recently increased dose of Adderall vs acute onset of extensive PE or combination of all case discussed and evaluated by supervising physician George (Jenny),Elida GARCIA Oct 16, 2017 16:50
[2017-10-16] MEDS ORDERED: Ramipril 5mg cap ORAL SCH (18:00)
[2017-10-16] MEDS: Vancomycin 1gm in D5W 275ml IVPB SCH (18:37)
[2017-10-16] MEDS: Levodopa/Carbidopa 25/100 tab ORAL SCH ×2 (18:38→20:24)
[2017-10-16] MEDS ORDERED: Flu Vaccine Quadrivalent 0.5ml IM ONE (20:00)
[2017-10-16] MEDS ORDERED: Pneumococcal Vaccine 25mcg/0.5ml IM ONE (20:00)
[2017-10-16] MEDS: NUPLAZID 17 MG ORAL SCH (20:26)
[2017-10-16] MEDS: Levodopa/Carbidopa CR 50/200 tab ORAL SCH (20:27)
[2017-10-16] MEDS: Ramipril 5mg cap ORAL SCH (20:28)
[2017-10-16] MEDS: Atorvastatin 20mg tab ORAL SCH (20:32)
[2017-10-16] MEDS: Memantine 10mg tab ORAL SCH (20:33)
[2017-10-16] MEDS ORDERED: NUPLAZID 17 MG ORAL SCH ×2 (21:00)
--- NOTE | 2017-10-16 21:15 | Consultation ---
Consult Note Consult Note NEUROLOGY CONSULTATION: Full note dictated #[id number] 67 y/o, RH, CM with PH of HTN, a 5 year H/O Lewy body dementia, generalized seizures since 2017, and recently increasing drowsiness for which he has been on escalating doses of Adderal. For a few days NEGATIVE STRIPPER he was more drowsy, felt unwell, was not eating well, and was complaining of worsening SOB and chest pain. He was thus brought to the [facility] ER. He was discovered to have extensive bilateral pulmonary emboli. ON EXAM: Problems with orientation, recent and remote memory, mild anomia, no parkinsonian signs. IMPRESSION: Increasing drowsiness, unwell feeling, was not eating well, and worsening SOB and chest pain due to PE. REC: Continue present regimen of: Sinemet, Aricept, Namenda. Rx of PE. Lindsay Negrete M.D., M.S.P.H. LINDSAY NEGRETE Oct 16, 2017 21:15
[2017-10-16] MEDS ORDERED: Piperacillin/Tazobactam 3.375 GM in D5W 55 ML IVPB SCH (22:00)
--- NOTE | 2017-10-16 23:00 | Consultation ---
DATE OF CONSULTATION: 10/16/2017 NEUROLOGY CONSULTATION CONSULTING PHYSICIAN: Julius Negrete M.D. REQUESTING PHYSICIAN: Fabian Garcia M.D. HISTORY: Mr. Faisal Urbina is a 67-year-old, right-handed, gentleman, who does have a past history of hypertension an approximately five-year history of Lewy body dementia, generalized seizures since November 2016, and recently increasing drowsiness for which he has been getting escalating doses of Adderall. A few days prior to admission, he became increasingly more drowsy, felt quite unwell, was not eating well, and was complaining of worsening shortness of breath and chest pain. As a result of that, he was brought into the [facility] emergency room. He was evaluated in the emergency room and was discovered to have extensive bilateral pulmonary emboli. He has since been started on anticoagulation and feels much better with marked decrease in shortness of breath and marked decrease in chest pain. This consultation was requested to guide the patient's neurological management. The patient is unable to give me any more history. PAST MEDICAL HISTORY: Significant for hypertension, Lewy body disease diagnosed approximately five years ago, and generalized seizures since November 2016. FAMILY HISTORY: Nothing significant. PERSONAL HISTORY: Home: He lives with his . 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 Habits: He denies use of tobacco or illicit drugs. He does consume 1-2 alcoholic drinks everyday. MEDICATIONS: Present medications include aspirin 81 mg daily, Aricept 10 mg daily, vitamin D2 50,000 international units weekly, Prozac 10 mg daily, Zosyn, Lipitor 20 mg daily, Sinemet CR 50/200 - 2 tablets at bedtime, Sinemet 25/100 - 5 tablets taken 3 times a day, doxepin, Namenda 10 mg twice a day, ramipril, vancomycin, metoprolol, Keppra 1 G twice a day, hydralazine, flecainide, and heparin intravenously. PHYSICAL EXAMINATION: GENERAL: He is a well-developed, well-nourished, pleasant gentleman, lying in bed, in no acute distress. VITAL SIGNS: Pulse 88 per minute, blood pressure 148/85 mmHg, respirations 20 per minute, and temperature 98.2 degrees Fahrenheit. HEAD: Normocephalic and atraumatic. EENT: Examination benign . NECK: No neck rigidity was observed. NEUROLOGIC EXAMINATION: MENTAL STATUS EXAMINATION: He was awake and alert. He was oriented to self, hospital, and September 2017. He did not know the name of the hospital and did not know the exact date. He was able to recall 3/3 words immediately, but could only remember 2/3 words in 1 minute and 3 minutes even on the second trial. He was able to remember presidents, Trump and Obama with hints, but could not remember presidents prior to that even with hints. His mathematical skills were fairly good. His visuospatial function was preserved. SPEECH: He had no dysarthria. LANGUAGE: He had a mild anomia for low-frequency words. CRANIAL NERVE EXAMINATION: II: The visual hayes were intact on confrontation testing. III, IV & : The external ocular movements were full and the pupils 3 mm in diameter, equal, round, regular, and reactive to light. V: He had normal facial sensations, and the temporales, masseters, and pterygoids functioned normally. VII: He had normal facial expressions and no facial asymmetry. VIII: He was able to hear well bilaterally and had no nystagmus. IX: The palate moved symmetrically on phonation. X: He had no hoarseness of voice. XI: The sternocleidomastoids and trapezii functioned normally. XII: The tongue was in the midline without any fasciculations or atrophy. MOTOR SYSTEM: The tone was normal in all four extremities. Examination of muscle mass revealed no focal wasting. Examination of power revealed grade 5/5 power in all muscle groups tested. SENSORY EXAMINATION: He had intact sensations to pinprick, light touch, and graphesthesia. COORDINATION: He performed well on [id number] and [id number] testing. On Romberg test, he swayed, but did not fall to one side or the other. REFLEXES: 1++ and bilaterally symmetrical at the biceps, triceps, brachioradialis, and knees, trace positive at both ankles. The plantar responses were flexor bilaterally. STANCE: He stood up with contact guard. GAIT: He walked well with contact guard. ABNORMAL MOVEMENTS: Tremor (4 to 5 Hz): G 0/4. Rigidity: G 0/4. Bradykinesia: G 0/4. Hypomimia: G 0/4. Hypophonia: G 0/4. Parkinsonian stance: G 0/4. Parkinsonian gait: G 0/4. DIAGNOSTIC IMPRESSION: 1. Mr. Faisal Urbina is a 67-year-old, right-handed, gentleman, who does have a past history of hypertension, Lewy body dementia, and generalized seizures since November 2016, who for the last few days has been increasingly drowsy, felt unwell, has not been eating well, and was complaining of worsening shortness of breath and chest pain. He was brought into the [facility] emergency room and discovered to have extensive bilateral pulmonary emboli. He is now on intravenous heparin and significantly better. 2. On neurological examination at this time, he does have problems with orientation, recent and remote memory, a mild anomia, globally diminished deep tendon reflexes, but no parkinsonian signs. 3. The patient's history and neurological examination are most compatible with an underlying dementia labeled Lewy body disease. Of interest is that he is not exhibiting any parkinsonian signs at this point in time. The recent decline in function was most probably related to his pulmonary emboli. RECOMMENDATIONS: 1. Agree with management thus far. 2. Would continue the patient's present neurological regimen of Sinemet, Aricept, and Namenda. 3. Treatment of pulmonary embolism as per Dr. Garcia. 4. The patient will be observed closely and depending on how he fares over the next few days, further recommendations will be given. Thank you for entrusting me with the care of Mr. Urbina. I shall follow him with you. Julius Negrete M.D., M.S.P.H. DR: MICHAEL JOB#: [id number] MTDIsatu
[2017-10-17] VITALS (7 sets, daily range): BP systolic 117–162; BP diastolic 77–101
[2017-10-17] MEDS: HydrALAZINE 25mg tab ORAL PRN (04:29)
--- NOTE | 2017-10-17 04:30 | History and Physical Report ---
DATE OF ADMISSION: 10/15/2017 NOTE: POOR AUDIO Covering for Dr. Gómez. HISTORY OF PRESENT ILLNESS: The patient is a pleasant 67-year-old male with past medical history significant for Lewy body dementia as well as diverticulitis, CAT scan of the abdomen and pelvis, at this time presents with generalized weakness, syncopal episode with questionable history of syncope versus near syncope increased lethargy. 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 Negrete on this inpatient stay. Lactic acid was noted to be 7.8. Infectious Diseases Service and Pulmonary team consulted. CTA showed bilateral pulmonary embolism. Platelet count and hemoglobin are within the range for anticoagulation services have been consulted as well and Dr. Pinto. The patient is on heparin drip. Again, continue this at this moment. PAST MEDICAL HISTORY: As noted above. MEDICATIONS: Lipitor, , donepezil, , , and Remeron. SOCIAL HISTORY: Does drink alcohol. No illicit drug use. No smoking . FAMILY HISTORY: Noncontributory. PHYSICAL EXAMINATION: GENERAL: No distress. VITAL SIGNS: Reviewed. PULMONARY: Decreased breath sounds. CARDIOVASCULAR: Regular rate. No S3 or S4. ABDOMEN: Soft, nontender, and nondistended. EXTREMITIES: A 1+ edema. LABORATORY AND DIAGNOSTIC DATA: WBC is 6.3, hemoglobin 10.8, and platelet count 170,000. Imaging shows pulmonary emboli, secondary to . ASSESSMENT AND RECOMMENDATIONS: 1. Pulmonary emboli. Continue the patient on heparin drip at this time. Consider to begin the patient on Coumadin with INR goal between 2 and 3. 2. Anemia, secondary to hypochromic anemia, currently stable . Consider to obtain further workup. 3. Diverticulitis. Consider Infectious Diseases Service evaluation. 4. Atherosclerotic disease. He has been seen by Cardiology Service. 5. The patient currently not indicating to have an inferior vena cava filter placed. 6. Lewy body dementia. He has been seen by Neurology. Continue current medications. 7. Dehydration and weakness. Continue fluids as needed. 8. Acute kidney injury due to dehydration. 9. Lactic acidosis, again could be secondary to bacteremia. Positive cultures noted. 10. Continue empiric antibiotics. 11. Coumadin has been ordered. I appreciate medical social consultant care. Janak Garcia M.D. DR: Anais JOB#: [id number] CC:
[2017-10-17] MEDS: Vancomycin 1gm in D5W 275ml IVPB SCH ×2 (05:00→18:40)
[2017-10-17 06:02] LABS: BASOPHILS % (AUTO) 0.6 % (0.0-2.0); EOSINOPHILS % (AUTO) 0.2 % (0.0-3.0); HEMATOCRIT 28.7 % (42.0-52.0); HEMOGLOBIN 9.4 G/DL (14.2-18.0); LYMPHOCYTES % (AUTO) 10.5 % (20.0-45.0); MEAN CORPUSCULAR VOLUME 109 FL (80-99); MONOCYTES % (AUTO) 8.1 % (1.0-10.0); NEUTROPHILS % (AUTO) 80.6 % (45.0-75.0); PLATELET COUNT 107 K/UL (150-450); RED BLOOD COUNT 2.63 M/UL (4.70-6.10); RED CELL DISTRIBUTION WIDTH 14.5 % (11.6-14.8); WHITE BLOOD COUNT 12.3 K/UL (4.8-10.8)
[2017-10-17 06:30] LABS: % IRON SATURATION 95 % (15-50); IRON 197 ug/dL (50-175); TOTAL IRON BINDING CAPACITY 207 ug/dL (250-450)
[2017-10-17 06:33] LABS: ALANINE AMINOTRANSFERASE 7 U/L (12-78); ALBUMIN 2.8 G/DL (3.4-5.0); ALBUMIN/GLOBULIN RATIO 1.1 (1.0-2.7); ALKALINE PHOSPHATASE 77 U/L (46-116); AMYLASE 89 U/L (25-115); ANION GAP 9 mmol/L (5-15); ASPARTATE AMINO TRANSFERASE 16 U/L (15-37); BILIRUBIN,TOTAL 0.5 MG/DL (0.2-1.0); BLOOD UREA NITROGEN 19 mg/dL (7-18); CALCIUM 7.2 MG/DL (8.5-10.1); CARBON DIOXIDE 24 MMOL/L (21-32); CHLORIDE 101 MMOL/L (98-107); CHOLESTEROL 119 MG/DL (< 200); CREATININE 0.8 MG/DL (0.55-1.30); FERRITIN 1570 NG/ML (8-388); HDL CHOLESTEROL 66 MG/DL (40-60); PHOSPHORUS 2.3 MG/DL (2.5-4.9); SODIUM 134 MMOL/L (136-145); TRIGLYCERIDES 93 MG/DL (30-150)
[2017-10-17] MEDS ORDERED: Heparin 5000 units/ml inj IV ONE ×2 (06:45→15:20)
[2017-10-17] MEDS ORDERED: Heparin 25,000u/D5W 500ml (VTE/AF) IV SCH (06:45)
[2017-10-17] MEDS: Heparin 25,000u/D5W 500ml (VTE/AF) IV SCH ×4 (06:56→23:03)
[2017-10-17] MEDS: Piperacillin/Tazobactam 3.375 GM in D5W 55 ML IVPB SCH ×3 (08:23→21:25)
[2017-10-17] MEDS ORDERED: Vitamin D 50,000 units cap ORAL SCH (09:00)
[2017-10-17] MEDS ORDERED: FLUoxetine 10mg cap ORAL SCH (09:00)
[2017-10-17] MEDS: Aspirin EC 81mg tab ORAL SCH (09:47)
[2017-10-17] MEDS: Donepezil 10mg tab ORAL SCH (09:49)
[2017-10-17] MEDS: Metoprolol Succinate XL 25mg tab ORAL SCH ×2 (09:49→20:47)
[2017-10-17] MEDS: Ramipril 5mg cap ORAL SCH ×2 (09:49→20:46)
[2017-10-17] MEDS: Memantine 10mg tab ORAL SCH ×2 (09:50→20:47)
[2017-10-17] MEDS: NUPLAZID 17 MG ORAL SCH ×2 (09:57→20:44)
[2017-10-17] MEDS: Levodopa/Carbidopa 25/100 tab ORAL SCH ×2 (09:58→18:39)
[2017-10-17] MEDS ORDERED: Potassium Phosphate 30 MM in NS 275 ML IV ONE (10:30)
--- NOTE | 2017-10-17 11:11 | Pulmonology Progress Note ---
Assessment/Plan Assessment/Plan ASSESSMENT extensive bilateral PE syncopal vs presyncopal episode bacteremia possible sepsis sigmoid diverticulitis pancreatitis lactic acidosis Lewy body dementia HTN anemia thrombocytopenia YUAN likely due to dehydration 2 to diarrhea PLAN OF CARE VI Heparin gtt and start Coumadin today to bridge to therapeutic INR watch PLT count and HH O2 HHN prn empiric abx ID follows preliminary bl cx 10/24 +SCON, probably contamination aggressive hydration , monitor renal parameters, lytes, correct as needed, replace Mg and K today avoid nephrotoxic GI follows stool studies, stool C dif monitor counts, anemia w/up c/w folate deficiency started on Folate replacement BP management with current regimen and optimize as needed neuro follows per neuro syncope vs presyncopal episode possibly due to dehydration vs recently increased dose of Adderall vs acute onset of extensive PE or combination of all continue Sinemet, Aricept, Namenda lipid panel stable case discussed and evaluated by supervising physician Subjective Allergies: Coded Allergies: No Known Allergies (Unverified , 10/01/17) Subjective denies chest pain, palpitations, SOB on heparin drip K and Mg low this am HH at baseline Objective Last 24 Hour Vital Signs Date Time Temp Pulse Resp B/P (MAP) Pulse Ox O2 Delivery O2 Flow Rate FiO2 10/17/17 09:49 150/86 10/17/17 09:49 69 150/86 10/17/17 08:53 97.5 69 21 150/86 99 Nasal Cannula 10/17/17 08:00 53 10/17/17 05:34 98.2 65 20 144/83 94 Nasal Cannula 10/17/17 04:29 162/94 10/17/17 04:00 53 10/17/17 04:00 98.2 62 20 162/94 99 Room Air 10/17/17 00:00 98.1 64 18 146/82 98 Room Air 10/17/17 00:00 64 10/16/17 20:28 148/85 10/16/17 20:26 88 148/88 10/16/17 20:00 64 10/16/17 20:00 98.2 66 20 156/84 98 Room Air 10/16/17 18:02 98.1 77 18 148/85 97 Room Air 10/16/17 16:25 80 178/95 10/16/17 16:00 62 10/16/17 15:20 98.1 80 15 178/95 98 Nasal Cannula 2.0 10/16/17 14:30 98.3 64 14 152/89 100 Room Air 10/16/17 13:30 98.3 64 14 152/89 100 Room Air 10/16/17 11:30 98.3 80 15 161/89 98 Room Air Intake and Output 10/16/17 10/17/17 19:00 07:00 Intake Total 2288.888 ml Output Total 175 ml Balance 2113.888 ml Intake Oral 120 ml IV Total 2168.888 ml Output Urine Total 175 ml # Bowel Movements 1 1 Objective General Appearance: WD/WN, no apparent distress, alert Lines, tubes and drains: peripheral HEENT: normocephalic, atraumatic, anicteric, mucous membranes moist Neck: non-tender, normal alignment, supple Respiratory/Chest: lungs clear, no respiratory distress, no accessory muscle use Cardiovascular/Chest: normal rate, regular rhythm - SR on tele Abdomen: normal bowel sounds, non tender, soft Extremities: normal range of motion, non-tender Skin Exam: warm/dry Neurologic: alert, oriented x 3, responsive Musculoskeletal: normal muscle bulk Microbiology Date/Time Source Procedure Growth Status 10/15/17 16:55 Blood Blood Culture - Preliminary NO GROWTH AFTER 24 HOURS Resulted 10/15/17 16:50 Blood Blood Culture - Preliminary Staphylococcus Sp Coag Neg Resulted Laboratory Tests 10/17/17 03:25: White Blood Count 12.3#H, Red Blood Count 2.63L, Hemoglobin 9.4L, Hematocrit 28.7L, Mean Corpuscular Volume 109H, Mean Corpuscular Hemoglobin 35.5H, Mean Corpuscular Hemoglobin Concent 32.6, Red Cell Distribution Width 14.5, Platelet Count 107L, Mean Platelet Volume 6.6, Neutrophils (%) (Auto) 80.6H, Lymphocytes (%) (Auto) 10.5L, Monocytes (%) (Auto) 8.1, Eosinophils (%) (Auto) 0.2, Basophils (%) (Auto) 0.6, Reticulocyte Count 0.3, Prothrombin Time 10.9, Prothromb Time International Ratio 1.0, Activated Partial Thromboplast Time 53H , Sodium Level 134L, Potassium Level 3.0L, Chloride Level 101, Carbon Dioxide Level 24, Anion Gap 9, Blood Urea Nitrogen 19H, Creatinine 0.8, Estimat Glomerular Filtration Rate > 60, Glucose Level 123#H, Calcium Level 7.2L, Phosphorus Level 2.3L, Magnesium Level 1.4L, Iron Level 197H, Total Iron Binding Capacity 207L, Percent Iron Saturation 95H, Unsaturated Iron Binding 10L , Ferritin 1570H, Total Bilirubin 0.5, Aspartate Amino Transf (AST/SGOT) 16, Alanine Aminotransferase (ALT/SGPT) 7L, Alkaline Phosphatase 77, Total Protein 5.4L, Albumin 2.8L, Globulin 2.6, Albumin/Globulin Ratio 1.1, Triglycerides Level 93, Cholesterol Level 119, LDL Cholesterol 38, HDL Cholesterol 66H, Cholesterol/HDL Ratio 1.8L, Amylase Level 89, Lipase 1013H, Vitamin B12 Level 226, Folate 2.4L, Thyroid Stimulating Hormone (TSH) 1.706, Free Thyroxine 1.04 Current Medications Medications (Trade) Dose Ordered Sig/Patricia Route PRN Reason Start Time Stop Time Status Last Admin Dose Admin Aspirin (Ecotrin) 81 mg DAILY ORAL 10/17/17 09:00 11/16/17 08:59 10/17/17 09:47 Atorvastatin Calcium (Lipitor) 20 mg BEDTIME ORAL 10/16/17 21:00 11/15/17 20:59 10/16/17 20:32 Carbidopa/Levodopa (Sinemet 25/100) 5 ea THREE TIMES A DAY ORAL 10/16/17 18:00 11/15/17 17:59 10/17/17 09:58 Carbidopa/Levodopa (Sinemet CR 50/ 200) 2 ea QHS ORAL 10/16/17 21:00 11/15/17 20:59 10/16/17 20:27 Dextrose (Dextrose 50%) STAT PRN IV Hypoglycemia 10/16/17 09:30 11/15/17 09:29 Donepezil HCl (Aricept) 10 mg DAILY ORAL 10/17/17 09:00 11/16/17 08:59 10/17/17 09:49 Doxepin HCl (SINEquan) 10 mg BEDTIME ORAL 10/16/17 21:00 11/15/17 20:59 10/16/17 20:35 Ergocalciferol (Drisdol) 50,000 intlu QWEEK ORAL 10/17/17 09:00 11/16/17 08:59 Flecainide Acetate (Tambocor) 50 mg Q12HR ORAL 10/16/17 13:00 11/15/17 12:59 10/17/17 09:50 Fluoxetine HCl (PROzac) 10 mg DAILY ORAL 10/17/17 09:00 11/16/17 08:59 10/17/17 09:47 Folic Acid (Folate) 1 mg DAILY ORAL 10/17/17 09:15 11/16/17 09:14 10/17/17 09:47 Heparin Sodium/ Dextrose 500 ml @ 23.95 mls/ hr Q24H IV 10/17/17 07:00 11/16/17 06:59 10/17/17 06:56 Hydralazine HCl (Apresoline) 25 mg Q6H PRN ORAL SBP > 160mmHg 10/16/17 13:00 11/15/17 12:59 10/17/17 04:29 Levetiracetam (Keppra) 1,000 mg Q12HR ORAL 10/16/17 14:00 11/15/17 13:59 10/17/17 09:49 Magnesium Sulfate 100 ml @ 100 mls/hr Q1H IVPB 10/17/17 09:15 10/17/17 11:14 Memantine (Namenda) 10 mg Q12HR ORAL 10/16/17 21:00 11/15/17 20:59 10/17/17 09:50 Metoprolol Succinate (Toprol XL) 25 mg Q12HR ORAL 10/16/17 15:45 11/15/17 15:44 10/17/17 09:49 Patient Own Medication (Patient's Own Med) 1 ea Q12HR ORAL 10/16/17 21:00 11/15/17 20:59 10/17/17 09:57 Piperacillin Sod/ Tazobactam Sod 3.375 gm/Dextrose 55 ml @ 13.75 mls/ hr EVERY 8 HOURS IVPB 10/17/17 08:00 10/24/17 07:59 10/17/17 08:23 Potassium Phosphate 30 mm/ Sodium Chloride 285 ml @ 47.5 mls/hr ONCE ONCE IV 10/17/17 10:30 10/17/17 16:29 Ramipril (Altace) 5 mg Q12HR ORAL 10/16/17 21:00 11/15/17 20:59 10/17/17 09:49 Sodium Chloride 1,000 ml @ 125 mls/hr Q8H IVLG 10/16/17 18:00 11/15/17 17:59 10/17/17 02:07 Vancomycin HCl (Vanco rx to dose) 1 ea DAILY PRN MISC Per rx protocol 10/16/17 14:45 11/15/17 14:44 Vancomycin HCl 1 gm/Dextrose 275 ml @ 183.708 mls/hr Q12HR@0600,1800 IVPB 10/16/17 18:00 10/21/17 17:59 10/17/17 05:00 Warfarin Sodium (Coumadin per pharmacy) 1 ea DAILY PRN MISC Per rx protocol 10/16/17 22:45 11/15/17 22:44 Warfarin Sodium (Coumadin) 5 mg COUMADIN ORAL 10/17/17 17:00 10/17/17 17:01 George (Tatefrandy)Elida NP Oct 17, 2017 11:11
--- NOTE | 2017-10-17 11:36 | Consultation ---
History of Present Illness General Date patient seen: Oct 17, 2017 Time patient seen: 11:37 Chief Complaint: Generalized Weakness Referring physician: JAIRO JIMENEZ Reason for Consultation: etensive pulm emboli Present Illness HPI 67 y/o M with hx of Lewy body dementia (dx ~5yrs ago), diverticulosis with diverticulitis, HTN, seizures disorder presnts to ED on 10/15 with generalized weakness, syncopal episode, anorexia, SOB , CP and increased lethargy. In ED noted to have lactic acidosis to 7.8 and lipase ~1k. CTA chest showed extensive b/l PE Of note, recently increased dose of Adderall per [facility] Neurologist. Denies Abd pain, n/d. Had several days of diarrhea (~4-5days). Allergies: Coded Allergies: No Known Allergies (Unverified , 10/01/17) Medication History Scheduled Aspirin Ec* (Aspirin Ec*), 81 MG ORAL DAILY, (Reported) Atorvastatin Calcium* (Atorvastatin Calcium*), 20 MG ORAL BEDTIME, (Reported) Carbidopa/Levodopa 25-100 Mg* (Sinemet 25-100 Mg Tablet*), 5 TAB ORAL THREE TIMES A DAY, (Reported) Carbidopa/Levodopa Cr 50-200* (Sinemet Cr 50-200 Tablet*), 2 TAB ORAL QHS, ( Reported) Dextroamphetamine/Amphetamine (Adderall 20 mg Tablet), 7.5 MG ORAL DAILY, ( Reported) Donepezil Hcl* (Donepezil Hcl*), 10 MG ORAL DAILY, (Reported) Doxepin HCl (Doxepin HCl), 10 MG ORAL BEDTIME, (Reported) Ergocalciferol (Vitamin D2)* (Vitamin D*), 50,000 UNIT ORAL ONCE A WEEK, ( Reported) Esomeprazole Magnesium (Nexium), 40 MG ORAL BIDAC, (Reported) Flecainide Acetate* (Tambocor*), 50 MG ORAL TWICE A DAY, (Reported) Fluoxetine Hcl* (Fluoxetine Hcl*), 10 MG ORAL DAILY, (Reported) Levetiracetam* (Levetiracetam*), 1,000 MG ORAL TWICE A DAY, (Reported) Memantine Hcl (Namenda Xr), 28 MG PO DAILY, (Reported) Metoprolol Succinate* (Toprol Xl*), 25 MG ORAL BID, (Reported) Pimavanserin Tartrate (Nuplazid), 17 MG PO BID, (Reported) Ramipril* (Altace*), 5 MG ORAL TWICE A DAY, (Reported) Scheduled PRN Quetiapine Fumarate* (Seroquel*), 25 MG ORAL TWICE A DAY PRN for Agitation, ( Reported) Tadalafil (Tadalafil), 5 MG PO ONCE PRN for ERECTILE DYSFUNCTION, (Reported) Patient History Healthcare decision maker GIGI CHAVARRIA Resuscitation status Full Code Advanced Directive on File No Patient History Narrative PMhx: as above SHx: Does drink alcohol. No illicit drug use. No smoking Fhx: non contributory Review of Systems ROS Narrative as per HPI, otherwise negative Physical Exam Physical Exam Narrative GENERAL: No distress. PULMONARY: Decreased breath sounds. CARDIOVASCULAR: Regular rate. No S3 or S4. ABDOMEN: Soft, nontender, and nondistended. EXTREMITIES: A 1+ edema. Last 24 Hour Vital Signs Date Time Temp Pulse Resp B/P (MAP) Pulse Ox O2 Delivery O2 Flow Rate FiO2 10/17/17 09:49 150/86 10/17/17 09:49 69 150/86 10/17/17 08:53 97.5 69 21 150/86 99 Nasal Cannula 10/17/17 08:00 53 10/17/17 05:34 98.2 65 20 144/83 94 Nasal Cannula 10/17/17 04:29 162/94 10/17/17 04:00 53 10/17/17 04:00 98.2 62 20 162/94 99 Room Air 10/17/17 00:00 98.1 64 18 146/82 98 Room Air 10/17/17 00:00 64 10/16/17 20:28 148/85 10/16/17 20:26 88 148/88 10/16/17 20:00 64 10/16/17 20:00 98.2 66 20 156/84 98 Room Air 10/16/17 18:02 98.1 77 18 148/85 97 Room Air 10/16/17 16:25 80 178/95 10/16/17 16:00 62 10/16/17 15:20 98.1 80 15 178/95 98 Nasal Cannula 2.0 10/16/17 14:30 98.3 64 14 152/89 100 Room Air 10/16/17 13:30 98.3 64 14 152/89 100 Room Air Intake and Output 10/16/17 10/17/17 19:00 07:00 Intake Total 2288.888 ml Output Total 175 ml Balance 2113.888 ml Intake Oral 120 ml IV Total 2168.888 ml Output Urine Total 175 ml # Bowel Movements 1 1 Laboratory Tests Test 10/17/17 03:25 White Blood Count 12.3 K/UL (4.8-10.8) #H Red Blood Count 2.63 M/UL (4.70-6.10) L Hemoglobin 9.4 G/DL (14.2-18.0) L Hematocrit 28.7 % (42.0-52.0) L Mean Corpuscular Volume 109 FL (80-99) H Mean Corpuscular Hemoglobin 35.5 PG (27.0-31.0) H Mean Corpuscular Hemoglobin Concent 32.6 G/DL (32.0-36.0) Red Cell Distribution Width 14.5 % (11.6-14.8) Platelet Count 107 K/UL (150-450) L Mean Platelet Volume 6.6 FL (6.5-10.1) Neutrophils (%) (Auto) 80.6 % (45.0-75.0) H Lymphocytes (%) (Auto) 10.5 % (20.0-45.0) L Monocytes (%) (Auto) 8.1 % (1.0-10.0) Eosinophils (%) (Auto) 0.2 % (0.0-3.0) Basophils (%) (Auto) 0.6 % (0.0-2.0) Reticulocyte Count 0.3 % (0.0-2.0) Prothrombin Time 10.9 SEC (9.30-11.50) Prothromb Time International Ratio 1.0 (0.9-1.1) Activated Partial Thromboplast Time 53 SEC (23-33) H Sodium Level 134 MMOL/L (136-145) L Potassium Level 3.0 MMOL/L (3.5-5.1) L Chloride Level 101 MMOL/L (98-107) Carbon Dioxide Level 24 MMOL/L (21-32) Anion Gap 9 mmol/L (5-15) Blood Urea Nitrogen 19 mg/dL (7-18) H Creatinine 0.8 MG/DL (0.55-1.30) Estimat Glomerular Filtration Rate > 60 mL/min (>60) Glucose Level 123 MG/DL (74-106) #H Calcium Level 7.2 MG/DL (8.5-10.1) L Phosphorus Level 2.3 MG/DL (2.5-4.9) L Magnesium Level 1.4 MG/DL (1.8-2.4) L Iron Level 197 ug/dL (50-175) H Total Iron Binding Capacity 207 ug/dL (250-450) L Percent Iron Saturation 95 % (15-50) H Unsaturated Iron Binding 10 ug/dL (112-346) L Ferritin 1570 NG/ML (8-388) H Total Bilirubin 0.5 MG/DL (0.2-1.0) Aspartate Amino Transf (AST/SGOT) 16 U/L (15-37) Alanine Aminotransferase (ALT/SGPT) 7 U/L (12-78) L Alkaline Phosphatase 77 U/L (46-116) Total Protein 5.4 G/DL (6.4-8.2) L Albumin 2.8 G/DL (3.4-5.0) L Globulin 2.6 g/dL Albumin/Globulin Ratio 1.1 (1.0-2.7) Triglycerides Level 93 MG/DL (30-150) Cholesterol Level 119 MG/DL (< 200) LDL Cholesterol 38 mg/dL (<100) HDL Cholesterol 66 MG/DL (40-60) H Cholesterol/HDL Ratio 1.8 (3.3-4.4) L Amylase Level 89 U/L (25-115) Lipase 1013 U/L (73-393) H Vitamin B12 Level 226 PG/ML (193-986) Folate 2.4 NG/ML (8.6-58.9) L Thyroid Stimulating Hormone (TSH) 1.706 uiU/mL (0.358-3.740) Free Thyroxine 1.04 NG/DL (0.76-1.46) Height (Feet): 5 Height (Inches): 10.00 Weight (Pounds): 198 Medications Current Medications Medications (Trade) Dose Ordered Sig/Patricia Route PRN Reason Start Time Stop Time Status Last Admin Dose Admin Aspirin (Ecotrin) 81 mg DAILY ORAL 10/17/17 09:00 11/16/17 08:59 10/17/17 09:47 Atorvastatin Calcium (Lipitor) 20 mg BEDTIME ORAL 10/16/17 21:00 11/15/17 20:59 10/16/17 20:32 Carbidopa/Levodopa (Sinemet 25/100) 5 ea THREE TIMES A DAY ORAL 10/16/17 18:00 11/15/17 17:59 10/17/17 09:58 Carbidopa/Levodopa (Sinemet CR 50/ 200) 2 ea QHS ORAL 10/16/17 21:00 11/15/17 20:59 10/16/17 20:27 Dextrose (Dextrose 50%) STAT PRN IV Hypoglycemia 10/16/17 09:30 11/15/17 09:29 Donepezil HCl (Aricept) 10 mg DAILY ORAL 10/17/17 09:00 11/16/17 08:59 10/17/17 09:49 Doxepin HCl (SINEquan) 10 mg BEDTIME ORAL 10/16/17 21:00 11/15/17 20:59 10/16/17 20:35 Ergocalciferol (Drisdol) 50,000 intlu QWEEK ORAL 10/17/17 09:00 11/16/17 08:59 10/17/17 11:27 Flecainide Acetate (Tambocor) 50 mg Q12HR ORAL 10/16/17 13:00 11/15/17 12:59 10/17/17 09:50 Fluoxetine HCl (PROzac) 10 mg DAILY ORAL 10/17/17 09:00 11/16/17 08:59 10/17/17 09:47 Folic Acid (Folate) 1 mg DAILY ORAL 10/17/17 09:15 11/16/17 09:14 10/17/17 09:47 Heparin Sodium/ Dextrose 500 ml @ 23.95 mls/ hr Q24H IV 10/17/17 07:00 11/16/17 06:59 10/17/17 06:56 Hydralazine HCl (Apresoline) 25 mg Q6H PRN ORAL SBP > 160mmHg 10/16/17 13:00 11/15/17 12:59 10/17/17 04:29 Levetiracetam (Keppra) 1,000 mg Q12HR ORAL 10/16/17 14:00 11/15/17 13:59 10/17/17 09:49 Memantine (Namenda) 10 mg Q12HR ORAL 10/16/17 21:00 11/15/17 20:59 10/17/17 09:50 Metoprolol Succinate (Toprol XL) 25 mg Q12HR ORAL 10/16/17 15:45 11/15/17 15:44 10/17/17 09:49 Patient Own Medication (Patient's Own Med) 1 ea Q12HR ORAL 10/16/17 21:00 11/15/17 20:59 10/17/17 09:57 Piperacillin Sod/ Tazobactam Sod 3.375 gm/Dextrose 55 ml @ 13.75 mls/ hr EVERY 8 HOURS IVPB 10/17/17 08:00 10/24/17 07:59 10/17/17 08:23 Potassium Phosphate 30 mm/ Sodium Chloride 285 ml @ 47.5 mls/hr ONCE ONCE IV 10/17/17 10:30 10/17/17 16:29 Ramipril (Altace) 5 mg Q12HR ORAL 10/16/17 21:00 11/15/17 20:59 10/17/17 09:49 Sodium Chloride 1,000 ml @ 125 mls/hr Q8H IVLG 10/16/17 18:00 11/15/17 17:59 10/17/17 11:30 Vancomycin HCl (Vanco rx to dose) 1 ea DAILY PRN MISC Per rx protocol 10/16/17 14:45 11/15/17 14:44 Vancomycin HCl 1 gm/Dextrose 275 ml @ 183.708 mls/hr Q12HR@0600,1800 IVPB 10/16/17 18:00 10/21/17 17:59 10/17/17 05:00 Warfarin Sodium (Coumadin per pharmacy) 1 ea DAILY PRN MISC Per rx protocol 10/16/17 22:45 11/15/17 22:44 Warfarin Sodium (Coumadin) 5 mg COUMADIN ORAL 10/17/17 17:00 10/17/17 17:01 Assessment/Plan Assessment/Plan Abx: IV Vanco 10/16- Zosyn 10/16- Assessment: Sigmoid diverticulitis and pancreatitis -CT abd/p: Sigmoid diverticulitis. No abscess. Fatty liver. Atherosclerotic disease Perinephric stranding nonspecific. -Lipase ~1k Lactic acidosis- 2ry to above- resolved Afebrile, mild leukocytosis 1/4 CoNS Bacteremia- likely contaminant- await repeat Bcx B/E extensive PE -CTA chest: Extensive bilateral pulmonary embolus. Atherosclerotic disease. Minimal posterior basal atelectasis. The lungs are essentially clear with the exception of some minimal posterior basilar reticulation Lewy body dementia (dx ~5yrs ago) diverticulosis with diverticulitis HTN seizures disorder Plan: -Continue IV Vancomycin #2 for now pending repeat Bcx -Continue Zosyn #2/7-10 for diverticulitis; upon discharge can transition to PO Cipro and Flagyol -f/u cx -Monitor CBC/CMP, temperatures -Aspiration precautions Thank you for this consultation. Will continue to follow along with you. Discussed with Dee Brown M.D. Oct 17, 2017 11:36
--- NOTE | 2017-10-17 12:40 | GI Progress Note ---
Assessment/Plan Problems: (1) Acute alcoholic pancreatitis ICD Codes: K85.20 - Alcohol induced acute pancreatitis without necrosis or infection SNOMED: 366416612 (2) Sigmoid diverticulitis ICD Codes: K57.32 - Diverticulitis of large intestine without perforation or abscess without bleeding SNOMED: 885199373 (3) Hypoalbuminemia ICD Codes: E88.09 - Other disorders of plasma-protein metabolism, not elsewhere classified SNOMED: 409191735 (4) Anemia ICD Codes: D64.9 - Anemia, unspecified SNOMED: 315620642 (5) Pancreatitis ICD Codes: K85.90 - Acute pancreatitis without necrosis or infection, unspecified SNOMED: 52925610 Status: stable Status Narrative Discussed with Dr. Elizondo. Assessment/Plan macrocytic, hyperchromic anemia CT AP reviewed >> PE, sigmoid diverticulitis, fatty liver elevated lipase anemia work up regular diet OB stool r/o GI bleed monitor H&H, prn transfusions send for cdiff/stool studies ppi folate PO abx >> zosyn IV/PO hydration repeat imaging prn fu labs, lipase levels will need outpatient colonoscopy x 2 months after dc for diverticulitis Subjective Gastrointestinal/Abdominal: Reports: no symptoms Objective Last 24 Hour Vital Signs Date Time Temp Pulse Resp B/P (MAP) Pulse Ox O2 Delivery O2 Flow Rate FiO2 10/17/17 09:49 150/86 10/17/17 09:49 69 150/86 10/17/17 08:53 97.5 69 21 150/86 99 Nasal Cannula 10/17/17 08:00 53 10/17/17 05:34 98.2 65 20 144/83 94 Nasal Cannula 10/17/17 04:29 162/94 10/17/17 04:00 53 10/17/17 04:00 98.2 62 20 162/94 99 Room Air 10/17/17 00:00 98.1 64 18 146/82 98 Room Air 10/17/17 00:00 64 10/16/17 20:28 148/85 10/16/17 20:26 88 148/88 10/16/17 20:00 64 10/16/17 20:00 98.2 66 20 156/84 98 Room Air 10/16/17 18:02 98.1 77 18 148/85 97 Room Air 10/16/17 16:25 80 178/95 10/16/17 16:00 62 10/16/17 15:20 98.1 80 15 178/95 98 Nasal Cannula 2.0 10/16/17 14:30 98.3 64 14 152/89 100 Room Air 10/16/17 13:30 98.3 64 14 152/89 100 Room Air Intake and Output 10/16/17 10/17/17 19:00 07:00 Intake Total 2468.888 ml Output Total 175 ml Balance 2293.888 ml Intake Oral 300 ml IV Total 2168.888 ml Output Urine Total 175 ml # Bowel Movements 1 1 Laboratory Tests Test 10/17/17 03:25 White Blood Count 12.3 K/UL (4.8-10.8) #H Red Blood Count 2.63 M/UL (4.70-6.10) L Hemoglobin 9.4 G/DL (14.2-18.0) L Hematocrit 28.7 % (42.0-52.0) L Mean Corpuscular Volume 109 FL (80-99) H Mean Corpuscular Hemoglobin 35.5 PG (27.0-31.0) H Mean Corpuscular Hemoglobin Concent 32.6 G/DL (32.0-36.0) Red Cell Distribution Width 14.5 % (11.6-14.8) Platelet Count 107 K/UL (150-450) L Mean Platelet Volume 6.6 FL (6.5-10.1) Neutrophils (%) (Auto) 80.6 % (45.0-75.0) H Lymphocytes (%) (Auto) 10.5 % (20.0-45.0) L Monocytes (%) (Auto) 8.1 % (1.0-10.0) Eosinophils (%) (Auto) 0.2 % (0.0-3.0) Basophils (%) (Auto) 0.6 % (0.0-2.0) Reticulocyte Count 0.3 % (0.0-2.0) Prothrombin Time 10.9 SEC (9.30-11.50) Prothromb Time International Ratio 1.0 (0.9-1.1) Activated Partial Thromboplast Time 53 SEC (23-33) H Sodium Level 134 MMOL/L (136-145) L Potassium Level 3.0 MMOL/L (3.5-5.1) L Chloride Level 101 MMOL/L (98-107) Carbon Dioxide Level 24 MMOL/L (21-32) Anion Gap 9 mmol/L (5-15) Blood Urea Nitrogen 19 mg/dL (7-18) H Creatinine 0.8 MG/DL (0.55-1.30) Estimat Glomerular Filtration Rate > 60 mL/min (>60) Glucose Level 123 MG/DL (74-106) #H Calcium Level 7.2 MG/DL (8.5-10.1) L Phosphorus Level 2.3 MG/DL (2.5-4.9) L Magnesium Level 1.4 MG/DL (1.8-2.4) L Iron Level 197 ug/dL (50-175) H Total Iron Binding Capacity 207 ug/dL (250-450) L Percent Iron Saturation 95 % (15-50) H Unsaturated Iron Binding 10 ug/dL (112-346) L Ferritin 1570 NG/ML (8-388) H Total Bilirubin 0.5 MG/DL (0.2-1.0) Aspartate Amino Transf (AST/SGOT) 16 U/L (15-37) Alanine Aminotransferase (ALT/SGPT) 7 U/L (12-78) L Alkaline Phosphatase 77 U/L (46-116) Total Protein 5.4 G/DL (6.4-8.2) L Albumin 2.8 G/DL (3.4-5.0) L Globulin 2.6 g/dL Albumin/Globulin Ratio 1.1 (1.0-2.7) Triglycerides Level 93 MG/DL (30-150) Cholesterol Level 119 MG/DL (< 200) LDL Cholesterol 38 mg/dL (<100) HDL Cholesterol 66 MG/DL (40-60) H Cholesterol/HDL Ratio 1.8 (3.3-4.4) L Amylase Level 89 U/L (25-115) Lipase 1013 U/L (73-393) H Vitamin B12 Level 226 PG/ML (193-986) Folate 2.4 NG/ML (8.6-58.9) L Thyroid Stimulating Hormone (TSH) 1.706 uiU/mL (0.358-3.740) Free Thyroxine 1.04 NG/DL (0.76-1.46) Height (Feet): 5 Height (Inches): 10.00 Weight (Pounds): 198 General Appearance: WD/WN, no apparent distress, alert Cardiovascular: normal rate Respiratory/Chest: normal breath sounds, no respiratory distress Abdominal Exam: normal bowel sounds, non tender, soft Extremities: non-tender Carolina Reed N.P. Oct 17, 2017 12:40
--- NOTE | 2017-10-17 15:55 | Consultation ---
History of Present Illness General Date patient seen: Oct 16, 2017 Chief Complaint: Generalized Weakness Referring physician: JAIRO JIMENEZ Reason for Consultation: etensive pulm emboli Present Illness HPI 67-year-old right-handed gentleman, who does have a past history of hypertension and approximately five-year history of Lewy body dementia, generalized seizures Allergies: Coded Allergies: No Known Allergies (Unverified , 10/01/17) Medication History Scheduled Aspirin Ec* (Aspirin Ec*), 81 MG ORAL DAILY, (Reported) Atorvastatin Calcium* (Atorvastatin Calcium*), 20 MG ORAL BEDTIME, (Reported) Carbidopa/Levodopa 25-100 Mg* (Sinemet 25-100 Mg Tablet*), 5 TAB ORAL THREE TIMES A DAY, (Reported) Carbidopa/Levodopa Cr 50-200* (Sinemet Cr 50-200 Tablet*), 2 TAB ORAL QHS, ( Reported) Dextroamphetamine/Amphetamine (Adderall 20 mg Tablet), 7.5 MG ORAL DAILY, ( Reported) Donepezil Hcl* (Donepezil Hcl*), 10 MG ORAL DAILY, (Reported) Doxepin HCl (Doxepin HCl), 10 MG ORAL BEDTIME, (Reported) Ergocalciferol (Vitamin D2)* (Vitamin D*), 50,000 UNIT ORAL ONCE A WEEK, ( Reported) Esomeprazole Magnesium (Nexium), 40 MG ORAL BIDAC, (Reported) Flecainide Acetate* (Tambocor*), 50 MG ORAL TWICE A DAY, (Reported) Fluoxetine Hcl* (Fluoxetine Hcl*), 10 MG ORAL DAILY, (Reported) Levetiracetam* (Levetiracetam*), 1,000 MG ORAL TWICE A DAY, (Reported) Memantine Hcl (Namenda Xr), 28 MG PO DAILY, (Reported) Metoprolol Succinate* (Toprol Xl*), 25 MG ORAL BID, (Reported) Pimavanserin Tartrate (Nuplazid), 17 MG PO BID, (Reported) Ramipril* (Altace*), 5 MG ORAL TWICE A DAY, (Reported) Scheduled PRN Quetiapine Fumarate* (Seroquel*), 25 MG ORAL TWICE A DAY PRN for Agitation, ( Reported) Tadalafil (Tadalafil), 5 MG PO ONCE PRN for ERECTILE DYSFUNCTION, (Reported) Patient History Healthcare decision maker GIGI CHAVARRIA Resuscitation status Full Code Advanced Directive on File No Physical Exam Last 24 Hour Vital Signs Date Time Temp Pulse Resp B/P (MAP) Pulse Ox O2 Delivery O2 Flow Rate FiO2 10/17/17 09:49 150/86 10/17/17 09:49 69 150/86 10/17/17 08:53 97.5 69 21 150/86 99 Nasal Cannula 10/17/17 08:00 53 10/17/17 05:34 98.2 65 20 144/83 94 Nasal Cannula 10/17/17 04:29 162/94 10/17/17 04:00 53 10/17/17 04:00 98.2 62 20 162/94 99 Room Air 10/17/17 00:00 98.1 64 18 146/82 98 Room Air 10/17/17 00:00 64 10/16/17 20:28 148/85 10/16/17 20:26 88 148/88 10/16/17 20:00 64 10/16/17 20:00 98.2 66 20 156/84 98 Room Air 10/16/17 18:02 98.1 77 18 148/85 97 Room Air 10/16/17 16:25 80 178/95 10/16/17 16:00 62 Intake and Output 10/16/17 10/17/17 19:00 07:00 Intake Total 2468.888 ml Output Total 175 ml Balance 2293.888 ml Intake Oral 300 ml IV Total 2168.888 ml Output Urine Total 175 ml # Bowel Movements 1 1 Laboratory Tests Test 10/17/17 03:25 10/17/17 13:20 White Blood Count 12.3 K/UL (4.8-10.8) #H Red Blood Count 2.63 M/UL (4.70-6.10) L Hemoglobin 9.4 G/DL (14.2-18.0) L Hematocrit 28.7 % (42.0-52.0) L Mean Corpuscular Volume 109 FL (80-99) H Mean Corpuscular Hemoglobin 35.5 PG (27.0-31.0) H Mean Corpuscular Hemoglobin Concent 32.6 G/DL (32.0-36.0) Red Cell Distribution Width 14.5 % (11.6-14.8) Platelet Count 107 K/UL (150-450) L Mean Platelet Volume 6.6 FL (6.5-10.1) Neutrophils (%) (Auto) 80.6 % (45.0-75.0) H Lymphocytes (%) (Auto) 10.5 % (20.0-45.0) L Monocytes (%) (Auto) 8.1 % (1.0-10.0) Eosinophils (%) (Auto) 0.2 % (0.0-3.0) Basophils (%) (Auto) 0.6 % (0.0-2.0) Reticulocyte Count 0.3 % (0.0-2.0) Prothrombin Time 10.9 SEC (9.30-11.50) Prothromb Time International Ratio 1.0 (0.9-1.1) Activated Partial Thromboplast Time 53 SEC (23-33) H 26 SEC (23-33) Sodium Level 134 MMOL/L (136-145) L Potassium Level 3.0 MMOL/L (3.5-5.1) L Chloride Level 101 MMOL/L (98-107) Carbon Dioxide Level 24 MMOL/L (21-32) Anion Gap 9 mmol/L (5-15) Blood Urea Nitrogen 19 mg/dL (7-18) H Creatinine 0.8 MG/DL (0.55-1.30) Estimat Glomerular Filtration Rate > 60 mL/min (>60) Glucose Level 123 MG/DL (74-106) #H Calcium Level 7.2 MG/DL (8.5-10.1) L Phosphorus Level 2.3 MG/DL (2.5-4.9) L Magnesium Level 1.4 MG/DL (1.8-2.4) L Iron Level 197 ug/dL (50-175) H Total Iron Binding Capacity 207 ug/dL (250-450) L Percent Iron Saturation 95 % (15-50) H Unsaturated Iron Binding 10 ug/dL (112-346) L Ferritin 1570 NG/ML (8-388) H Total Bilirubin 0.5 MG/DL (0.2-1.0) Aspartate Amino Transf (AST/SGOT) 16 U/L (15-37) Alanine Aminotransferase (ALT/SGPT) 7 U/L (12-78) L Alkaline Phosphatase 77 U/L (46-116) Total Protein 5.4 G/DL (6.4-8.2) L Albumin 2.8 G/DL (3.4-5.0) L Globulin 2.6 g/dL Albumin/Globulin Ratio 1.1 (1.0-2.7) Triglycerides Level 93 MG/DL (30-150) Cholesterol Level 119 MG/DL (< 200) LDL Cholesterol 38 mg/dL (<100) HDL Cholesterol 66 MG/DL (40-60) H Cholesterol/HDL Ratio 1.8 (3.3-4.4) L Amylase Level 89 U/L (25-115) Lipase 1013 U/L (73-393) H Vitamin B12 Level 226 PG/ML (193-986) Folate 2.4 NG/ML (8.6-58.9) L Thyroid Stimulating Hormone (TSH) 1.706 uiU/mL (0.358-3.740) Free Thyroxine 1.04 NG/DL (0.76-1.46) Height (Feet): 5 Height (Inches): 10.00 Weight (Pounds): 198 Medications Current Medications Medications (Trade) Dose Ordered Sig/Patricia Route PRN Reason Start Time Stop Time Status Last Admin Dose Admin Aspirin (Ecotrin) 81 mg DAILY ORAL 10/17/17 09:00 11/16/17 08:59 10/17/17 09:47 Atorvastatin Calcium (Lipitor) 20 mg BEDTIME ORAL 10/16/17 21:00 11/15/17 20:59 10/16/17 20:32 Carbidopa/Levodopa (Sinemet 25/100) 5 ea THREE TIMES A DAY ORAL 10/16/17 18:00 11/15/17 17:59 10/17/17 09:58 Carbidopa/Levodopa (Sinemet CR 50/ 200) 2 ea QHS ORAL 10/16/17 21:00 11/15/17 20:59 10/16/17 20:27 Dextrose (Dextrose 50%) STAT PRN IV Hypoglycemia 10/16/17 09:30 11/15/17 09:29 Donepezil HCl (Aricept) 10 mg DAILY ORAL 10/17/17 09:00 11/16/17 08:59 10/17/17 09:49 Doxepin HCl (SINEquan) 10 mg BEDTIME ORAL 10/16/17 21:00 11/15/17 20:59 12/27/17 20:35 Ergocalciferol (Drisdol) 50,000 intlu QWEEK ORAL 10/17/17 09:00 11/16/17 08:59 10/17/17 11:27 Flecainide Acetate (Tambocor) 50 mg Q12HR ORAL 10/16/17 13:00 11/15/17 12:59 10/17/17 09:50 Fluoxetine HCl (PROzac) 10 mg DAILY ORAL 10/17/17 09:00 11/16/17 08:59 10/17/17 09:47 Folic Acid (Folate) 1 mg DAILY ORAL 10/17/17 09:15 11/16/17 09:14 10/17/17 09:47 Heparin Sodium/ Dextrose 500 ml @ 29.937 mls/ hr Q24H IV 10/17/17 07:00 11/16/17 06:59 10/17/17 15:52 Hydralazine HCl (Apresoline) 25 mg Q6H PRN ORAL SBP > 160mmHg 10/16/17 13:00 11/15/17 12:59 10/17/17 04:29 Levetiracetam (Keppra) 1,000 mg Q12HR ORAL 10/16/17 14:00 11/15/17 13:59 10/17/17 09:49 Memantine (Namenda) 10 mg Q12HR ORAL 10/16/17 21:00 11/15/17 20:59 10/17/17 09:50 Metoprolol Succinate (Toprol XL) 25 mg Q12HR ORAL 10/16/17 15:45 11/15/17 15:44 10/17/17 09:49 Patient Own Medication (Patient's Own Med) 1 ea Q12HR ORAL 10/16/17 21:00 11/15/17 20:59 10/17/17 09:57 Piperacillin Sod/ Tazobactam Sod 3.375 gm/Dextrose 55 ml @ 13.75 mls/ hr EVERY 8 HOURS IVPB 10/17/17 08:00 10/24/17 07:59 10/17/17 14:00 Potassium Phosphate 30 mm/ Sodium Chloride 285 ml @ 47.5 mls/hr ONCE ONCE IV 10/17/17 10:30 10/17/17 16:29 10/17/17 13:45 Ramipril (Altace) 5 mg Q12HR ORAL 10/16/17 21:00 11/15/17 20:59 10/17/17 09:49 Sodium Chloride 1,000 ml @ 125 mls/hr Q8H IVLG 10/16/17 18:00 11/15/17 17:59 10/17/17 11:30 Vancomycin HCl (Vanco rx to dose) 1 ea DAILY PRN MISC Per rx protocol 10/16/17 14:45 11/15/17 14:44 Vancomycin HCl 1 gm/Dextrose 275 ml @ 183.708 mls/hr Q12HR@0600,1800 IVPB 10/16/17 18:00 10/21/17 17:59 10/17/17 05:00 Warfarin Sodium (Coumadin per pharmacy) 1 ea DAILY PRN MISC Per rx protocol 10/16/17 22:45 11/15/17 22:44 Warfarin Sodium (Coumadin) 5 mg COUMADIN ORAL 10/17/17 17:00 10/17/17 17:01 Caitlyn Rousseau M.D. Oct 17, 2017 15:55
[2017-10-17] MEDS ORDERED: Warfarin Sodium 5mg ORAL SCH (17:00)
--- NOTE | 2017-10-17 20:36 | Neurology Progress Note ---
Interim History Interim History Interim History Mr. Urbina feels better. He is tired as he was unable to sleep due to a noisy room-mate. He is able to breathe well. The appetite is better. The mind has been clear. He has had no parkinsonian symptoms. He denies any new neurologic symptoms. Review of Systems Neuro Review of Systems Benign. Objective Physical Exam Last Vital Signs Date Time Temp Pulse Resp B/P (MAP) Pulse Ox O2 Delivery O2 Flow Rate FiO2 10/17/17 16:00 68 10/17/17 16:00 97.8 18 140/95 97 Nasal Cannula 2.0 10/16/17 07:20 96 Laboratory Tests Test 10/17/17 03:25 10/17/17 13:20 10/17/17 16:55 White Blood Count 12.3 K/UL (4.8-10.8) #H Red Blood Count 2.63 M/UL (4.70-6.10) L Hemoglobin 9.4 G/DL (14.2-18.0) L Hematocrit 28.7 % (42.0-52.0) L Mean Corpuscular Volume 109 FL (80-99) H Mean Corpuscular Hemoglobin 35.5 PG (27.0-31.0) H Mean Corpuscular Hemoglobin Concent 32.6 G/DL (32.0-36.0) Red Cell Distribution Width 14.5 % (11.6-14.8) Platelet Count 107 K/UL (150-450) L Mean Platelet Volume 6.6 FL (6.5-10.1) Neutrophils (%) (Auto) 80.6 % (45.0-75.0) H Lymphocytes (%) (Auto) 10.5 % (20.0-45.0) L Monocytes (%) (Auto) 8.1 % (1.0-10.0) Eosinophils (%) (Auto) 0.2 % (0.0-3.0) Basophils (%) (Auto) 0.6 % (0.0-2.0) Reticulocyte Count 0.3 % (0.0-2.0) Prothrombin Time 10.9 SEC (9.30-11.50) Prothromb Time International Ratio 1.0 (0.9-1.1) Activated Partial Thromboplast Time 53 SEC (23-33) H 26 SEC (23-33) Sodium Level 134 MMOL/L (136-145) L Potassium Level 3.0 MMOL/L (3.5-5.1) L Chloride Level 101 MMOL/L (98-107) Carbon Dioxide Level 24 MMOL/L (21-32) Anion Gap 9 mmol/L (5-15) Blood Urea Nitrogen 19 mg/dL (7-18) H Creatinine 0.8 MG/DL (0.55-1.30) Estimat Glomerular Filtration Rate > 60 mL/min (>60) Glucose Level 123 MG/DL (74-106) #H Calcium Level 7.2 MG/DL (8.5-10.1) L Phosphorus Level 2.3 MG/DL (2.5-4.9) L Magnesium Level 1.4 MG/DL (1.8-2.4) L Iron Level 197 ug/dL (50-175) H Total Iron Binding Capacity 207 ug/dL (250-450) L Percent Iron Saturation 95 % (15-50) H Unsaturated Iron Binding 10 ug/dL (112-346) L Ferritin 1570 NG/ML (8-388) H Total Bilirubin 0.5 MG/DL (0.2-1.0) Aspartate Amino Transf (AST/SGOT) 16 U/L (15-37) Alanine Aminotransferase (ALT/SGPT) 7 U/L (12-78) L Alkaline Phosphatase 77 U/L (46-116) Total Protein 5.4 G/DL (6.4-8.2) L Albumin 2.8 G/DL (3.4-5.0) L Globulin 2.6 g/dL Albumin/Globulin Ratio 1.1 (1.0-2.7) Triglycerides Level 93 MG/DL (30-150) Cholesterol Level 119 MG/DL (< 200) LDL Cholesterol 38 mg/dL (<100) HDL Cholesterol 66 MG/DL (40-60) H Cholesterol/HDL Ratio 1.8 (3.3-4.4) L Amylase Level 89 U/L (25-115) Lipase 1013 U/L (73-393) H Vitamin B12 Level 226 PG/ML (193-986) Folate 2.4 NG/ML (8.6-58.9) L Thyroid Stimulating Hormone (TSH) 1.706 uiU/mL (0.358-3.740) Free Thyroxine 1.04 NG/DL (0.76-1.46) Vancomycin Level Trough 9.8 ug/mL (5.0-12.0) Neurologic Exam Objective PHYSICAL EXAMINATION: GENERAL: He is a well-developed, well-nourished, pleasant gentleman, lying in bed, in no acute distress. HEAD: Normocephalic and atraumatic. EENT: Examination benign . NECK: No neck rigidity was observed. NEUROLOGIC EXAMINATION: MENTAL STATUS EXAMINATION: He was awake and alert. He was oriented to self, hospital, and September 2017. He did not know the name of the hospital and did not know the exact date. He was able to recall 3/3 words immediately, but could only remember 2/3 words in 1 minute and 3 minutes even on the second trial. He was able to remember presidents, Trump and Obama with hints, but could not remember presidents prior to that even with hints. His mathematical skills were fairly good. His visuospatial function was preserved. SPEECH: He had no dysarthria. LANGUAGE: He had a mild anomia for low-frequency words. CRANIAL NERVE EXAMINATION: II: The visual hayes were intact on confrontation testing. III, IV & : The external ocular movements were full and the pupils 3 mm in diameter, equal, round, regular, and reactive to light. V: He had normal facial sensations, and the temporales, masseters, and pterygoids functioned normally. VII: He had normal facial expressions and no facial asymmetry. VIII: He was able to hear well bilaterally and had no nystagmus. IX: The palate moved symmetrically on phonation. X: He had no hoarseness of voice. XI: The sternocleidomastoids and trapezii functioned normally. XII: The tongue was in the midline without any fasciculations or atrophy. MOTOR SYSTEM: The tone was normal in all four extremities. Examination of muscle mass revealed no focal wasting. Examination of power revealed grade 5/5 power in all muscle groups tested. SENSORY EXAMINATION: He had intact sensations to pinprick, light touch, and graphesthesia. COORDINATION: He performed well on [id number] and [id number] testing. On Romberg test, he swayed, but did not fall to one side or the other. REFLEXES: 1++ and bilaterally symmetrical at the biceps, triceps, brachioradialis, and knees, trace positive at both ankles. The plantar responses were flexor bilaterally. STANCE: He stood up with contact guard. GAIT: He walked well with contact guard. ABNORMAL MOVEMENTS: Tremor (4 to 5 Hz): G 0/4. Rigidity: G 0/4. Bradykinesia: G 0/4. Hypomimia: G 0/4. Hypophonia: G 0/4. Parkinsonian stance: G 0/4. Parkinsonian gait: G 0/4. Impression/Recommendations Diagnostic Impression 1. Mr. Faisal Urbina is a 67-year-old, right-handed, gentleman, who does have a past history of hypertension, Lewy body dementia, and generalized seizures since November 2016, who for the last few days has been increasingly drowsy, felt unwell, has not been eating well, and was complaining of worsening shortness of breath and chest pain. He was brought into the [facility] emergency room and discovered to have extensive bilateral pulmonary emboli. He was started on intravenous heparin and has been significantly better. 2. He feels better. He is tired as he was unable to sleep due to a noisy room- mate. He is able to breathe well. The appetite is better. The mind has been clear. He has had no parkinsonian symptoms. He denies any new neurologic symptoms. 3. On neurological examination at this time, he does have problems with orientation, recent and remote memory, a mild anomia, globally diminished deep tendon reflexes, but no parkinsonian signs. 4. The patient's history and neurological examination are most compatible with an underlying dementia labeled Lewy body disease. He however is not exhibiting any parkinsonian signs at this point in time. The recent decline in function was most probably related to his pulmonary emboli. Recommendations 1. Continue present management. 2. Continue present neurological regimen of Sinemet, Aricept, and Namenda. 3. Treatment of pulmonary embolism as per Dr. Garcia. 4. Mobilize rapidly. Lindsay Andrews M.D., M.S.P.Aydin. LINDSAY ANDREWS Oct 17, 2017 20:36
[2017-10-17] MEDS: Levodopa/Carbidopa CR 50/200 tab ORAL SCH (20:45)
[2017-10-17] MEDS: Atorvastatin 20mg tab ORAL SCH (20:46)
[2017-10-17] MEDS: Depakote 500mg tab ORAL SCH (20:47)
[2017-10-18] VITALS (7 sets, daily range): BP systolic 129–161; BP diastolic 58–92
[2017-10-18] MEDS: Vancomycin 1gm in D5W 275ml IVPB SCH ×2 (05:00→18:14)
[2017-10-18] MEDS: HydrALAZINE 25mg tab ORAL PRN (05:00)
[2017-10-18] MEDS ORDERED: Piperacillin/Tazobactam 3.375 GM in D5W 55 ML IVPB SCH (06:00)
[2017-10-18 06:16] LABS: EOSINOPHILS % (AUTO) 2.7 % (0.0-3.0); HEMATOCRIT 26.3 % (42.0-52.0); HEMOGLOBIN 8.9 G/DL (14.2-18.0); LYMPHOCYTES % (AUTO) 21.2 % (20.0-45.0); MEAN CORPUSCULAR VOLUME 106 FL (80-99); MONOCYTES % (AUTO) 5.2 % (1.0-10.0); NEUTROPHILS % (AUTO) 69.9 % (45.0-75.0); PLATELET COUNT 112 K/UL (150-450); RED BLOOD COUNT 2.48 M/UL (4.70-6.10); RED CELL DISTRIBUTION WIDTH 14.3 % (11.6-14.8); WHITE BLOOD COUNT 8.9 K/UL (4.8-10.8)
[2017-10-18 06:34] LABS: ANION GAP 7 mmol/L (5-15); BLOOD UREA NITROGEN 7 mg/dL (7-18); CALCIUM 6.9 MG/DL (8.5-10.1); CARBON DIOXIDE 25 MMOL/L (21-32); CHLORIDE 104 MMOL/L (98-107); CREATININE 0.7 MG/DL (0.55-1.30); POTASSIUM 3.1 MMOL/L (3.5-5.1); SODIUM 136 MMOL/L (136-145)
[2017-10-18] MEDS: Piperacillin/Tazobactam 3.375 GM in D5W 55 ML IVPB SCH ×2 (08:25→16:10)
[2017-10-18] MEDS: Donepezil 10mg tab ORAL SCH (08:26)
[2017-10-18] MEDS: Levodopa/Carbidopa 25/100 tab ORAL SCH ×3 (08:26→17:07)
[2017-10-18] MEDS: Metoprolol Succinate XL 25mg tab ORAL SCH ×2 (08:27→20:49)
[2017-10-18] MEDS: Depakote 500mg tab ORAL SCH ×2 (08:27→20:49)
[2017-10-18] MEDS: Memantine 10mg tab ORAL SCH ×2 (08:27→20:49)
[2017-10-18] MEDS: Ramipril 5mg cap ORAL SCH ×2 (08:35→20:48)
[2017-10-18] MEDS: NUPLAZID 17 MG ORAL SCH ×2 (08:50→20:46)
[2017-10-18] MEDS: Aspirin EC 81mg tab ORAL SCH (08:51)
--- NOTE | 2017-10-18 08:51 | General Progress Note ---
Assessment/Plan Assessment/Plan late entry ASSESSMENT AND RECOMMENDATIONS: 1. Pulmonary emboli. Continue the patient on heparin drip + Coumadin with INR goal between 2 and 3. 2. Macrocytic hyperchromic anemia, currently downtrending 3. Alcoholic pancreatitis, with elevated lipase 3. Diverticulitis, gi following 4. Atherosclerotic disease. He has been seen by Cardiology Service. 5. Lewy body dementia. He has been seen by Neurology. Continue current medications. 6. Dehydration and weakness. Continue fluids as needed. 8. Acute kidney injury due to dehydration. 9. Lactic acidosis, postive cultures noted. 10. Continue empiric antibiotics. Subjective Date patient seen: Oct 17, 2017 Allergies: Coded Allergies: No Known Allergies (Unverified , 10/01/17) All Systems: reviewed and negative except above Subjective nad Objective Last 24 Hour Vital Signs Date Time Temp Pulse Resp B/P (MAP) Pulse Ox O2 Delivery O2 Flow Rate FiO2 10/18/17 08:35 146/89 10/18/17 08:27 62 146/89 10/18/17 07:54 97.7 62 20 146/89 98 10/18/17 06:21 136/88 10/18/17 05:00 160/87 10/18/17 04:00 98.5 64 20 161/80 97 10/18/17 04:00 55 10/18/17 00:18 98.5 64 20 157/89 98 10/18/17 00:00 57 10/17/17 20:47 88 146/84 10/17/17 20:46 146/92 10/17/17 20:00 54 10/17/17 20:00 98.7 55 20 157/80 98 Room Air 10/17/17 16:00 68 10/17/17 16:00 97.8 77 18 140/95 97 Nasal Cannula 2.0 10/17/17 12:00 97.8 67 18 117/77 95 Nasal Cannula 2.0 10/17/17 09:49 150/86 10/17/17 09:49 69 150/86 10/17/17 08:53 97.5 69 21 150/86 99 Nasal Cannula Intake and Output 10/17/17 10/18/17 19:00 07:00 Intake Total 1607.598 ml 2944.124 ml Output Total 450 ml Balance 1157.598 ml 2944.124 ml Intake Oral 600 ml 360 ml IV Total 1007.598 ml 2584.124 ml Output Urine Total 450 ml # Voids 2 5 # Bowel Movements 1 Laboratory Tests 10/17/17 13:20: Activated Partial Thromboplast Time 26 10/17/17 16:55: Vancomycin Level Trough 9.8 10/17/17 21:45: Activated Partial Thromboplast Time 96H 10/18/17 05:10: Activated Partial Thromboplast Time 77H, White Blood Count 8.9, Red Blood Count 2.48L, Hemoglobin 8.9L, Hematocrit 26.3L, Mean Corpuscular Volume 106H, Mean Corpuscular Hemoglobin 35.7H, Mean Corpuscular Hemoglobin Concent 33.8, Red Cell Distribution Width 14.3, Platelet Count 112L, Mean Platelet Volume 7.6, Neutrophils (%) (Auto) 69.9, Lymphocytes (%) (Auto) 21.2, Monocytes (%) (Auto) 5.2, Eosinophils (%) (Auto) 2.7, Basophils (%) (Auto) 1.0, Sodium Level 136, Potassium Level 3.1L, Chloride Level 104, Carbon Dioxide Level 25, Anion Gap 7, Blood Urea Nitrogen 7, Creatinine 0.7, Estimat Glomerular Filtration Rate > 60, Glucose Level 116H, Calcium Level 6.9L, Lipase 992H Height (Feet): 5 Height (Inches): 10.00 Weight (Pounds): 198 General Appearance: no apparent distress EENT: PERRL/EOMI Neck: normal alignment Cardiovascular: normal rate Respiratory/Chest: chest wall non-tender Edema: 1+ Pedal (L), 1+ Pedal (R) Edema: trace edema Janak Garcia Oct 18, 2017 08:51
--- NOTE | 2017-10-18 10:51 | Infectious Diseases Prog Note ---
Assessment/Plan Assessment/Plan Abx: IV Vanco 10/16- Zosyn 10/16- Assessment: Sigmoid diverticulitis and pancreatitis -CT abd/p: Sigmoid diverticulitis. No abscess. Fatty liver. Atherosclerotic disease Perinephric stranding nonspecific. -Lipase ~1k Lactic acidosis- 2ry to above- resolved Afebrile, mild leukocytosis- resoled 10/24 CoNS Bacteremia- likely contaminant- await repeat Bcx -10/15 1+; 10/16 Bcx p B/E extensive PE -CTA chest: Extensive bilateral pulmonary embolus. Atherosclerotic disease. Minimal posterior basal atelectasis. The lungs are essentially clear with the exception of some minimal posterior basilar reticulation Lewy body dementia (dx ~5yrs ago) diverticulosis with diverticulitis HTN seizures disorder Plan: -Continue IV Vancomycin #3 for now pending repeat Bcx; if neg in 24-48hrs, will d/c -Continue Zosyn #3/7-10 for diverticulitis; upon discharge can transition to PO Cipro and Flagyol -f/u cx -Monitor CBC/CMP, temperatures -Aspiration precautions Thank you for this consultation. Will continue to follow along with you. Discussed with RN. Subjective Allergies: Coded Allergies: No Known Allergies (Unverified , 10/01/17) Subjective afebrile no leukocytosis awaiting repaet Bcx Objective Vital Signs Last 24 Hour Vital Signs Date Time Temp Pulse Resp B/P (MAP) Pulse Ox O2 Delivery O2 Flow Rate FiO2 10/18/17 08:35 146/89 10/18/17 08:27 62 146/89 10/18/17 08:00 99 10/18/17 07:54 97.7 62 20 146/89 98 10/18/17 06:21 136/88 10/18/17 05:00 160/87 10/18/17 04:00 98.5 64 20 161/80 97 10/18/17 04:00 55 10/18/17 00:18 98.5 64 20 157/89 98 10/18/17 00:00 57 10/17/17 20:47 88 146/84 10/17/17 20:46 146/92 10/17/17 20:00 54 10/17/17 20:00 98.7 55 20 157/80 98 Room Air 10/17/17 16:00 68 10/17/17 16:00 97.8 77 18 140/95 97 Nasal Cannula 2.0 10/17/17 12:00 97.8 67 18 117/77 95 Nasal Cannula 2.0 Height (Feet): 5 Height (Inches): 10.00 Weight (Pounds): 198 Objective GENERAL: No distress. PULMONARY: Decreased breath sounds. CARDIOVASCULAR: Regular rate. No S3 or S4. ABDOMEN: Soft, nontender, and nondistended. EXTREMITIES: A 1+ edema. Microbiology Date/Time Source Procedure Growth Status 10/15/17 16:55 Blood Blood Culture - Preliminary NO GROWTH AFTER 48 HOURS Resulted 10/15/17 16:50 Blood Blood Culture - Final Staphylococcus Sp Coag Neg Complete 10/16/17 08:30 Rectum VRE Culture - Final NO VANCOMYCIN RESISTANT ENTEROCOCCUS ... Complete Laboratory Tests Test 10/17/17 13:20 10/17/17 16:55 10/17/17 21:45 10/18/17 05:10 Activated Partial Thromboplast Time 26 SEC (23-33) 96 SEC (23-33) H 77 SEC (23-33) H Vancomycin Level Trough 9.8 ug/mL (5.0-12.0) White Blood Count 8.9 K/UL (4.8-10.8) Red Blood Count 2.48 M/UL (4.70-6.10) L Hemoglobin 8.9 G/DL (14.2-18.0) L Hematocrit 26.3 % (42.0-52.0) L Mean Corpuscular Volume 106 FL (80-99) H Mean Corpuscular Hemoglobin 35.7 PG (27.0-31.0) H Mean Corpuscular Hemoglobin Concent 33.8 G/DL (32.0-36.0) Red Cell Distribution Width 14.3 % (11.6-14.8) Platelet Count 112 K/UL (150-450) L Mean Platelet Volume 7.6 FL (6.5-10.1) Neutrophils (%) (Auto) 69.9 % (45.0-75.0) Lymphocytes (%) (Auto) 21.2 % (20.0-45.0) Monocytes (%) (Auto) 5.2 % (1.0-10.0) Eosinophils (%) (Auto) 2.7 % (0.0-3.0) Basophils (%) (Auto) 1.0 % (0.0-2.0) Sodium Level 136 MMOL/L (136-145) Potassium Level 3.1 MMOL/L (3.5-5.1) L Chloride Level 104 MMOL/L (98-107) Carbon Dioxide Level 25 MMOL/L (21-32) Anion Gap 7 mmol/L (5-15) Blood Urea Nitrogen 7 mg/dL (7-18) Creatinine 0.7 MG/DL (0.55-1.30) Estimat Glomerular Filtration Rate > 60 mL/min (>60) Glucose Level 116 MG/DL (74-106) H Calcium Level 6.9 MG/DL (8.5-10.1) L Lipase 992 U/L (73-393) H Current Medications Medications (Trade) Dose Ordered Sig/Patricia Route PRN Reason Start Time Stop Time Status Last Admin Dose Admin Aspirin (Ecotrin) 81 mg DAILY ORAL 10/17/17 09:00 11/16/17 08:59 10/18/17 08:51 Atorvastatin Calcium (Lipitor) 20 mg BEDTIME ORAL 10/16/17 21:00 11/15/17 20:59 10/17/17 20:46 Carbidopa/Levodopa (Sinemet 25/100) 5 ea THREE TIMES A DAY ORAL 10/16/17 18:00 11/15/17 17:59 10/18/17 08:26 Carbidopa/Levodopa (Sinemet CR 50/ 200) 2 ea QHS ORAL 10/16/17 21:00 11/15/17 20:59 10/17/17 20:45 Dextrose (Dextrose 50%) STAT PRN IV Hypoglycemia 10/16/17 09:30 11/15/17 09:29 Divalproex Sodium (Depakote) 500 mg EVERY 12 HOURS ORAL 10/17/17 21:00 11/16/17 20:59 10/18/17 08:27 Donepezil HCl (Aricept) 10 mg DAILY ORAL 10/17/17 09:00 11/16/17 08:59 10/18/17 08:26 Ergocalciferol (Drisdol) 50,000 intlu QWEEK ORAL 10/17/17 09:00 11/16/17 08:59 10/17/17 11:27 Flecainide Acetate (Tambocor) 50 mg Q12HR ORAL 10/16/17 13:00 11/15/17 12:59 10/18/17 08:26 Folic Acid (Folate) 1 mg DAILY ORAL 10/17/17 09:15 11/16/17 09:14 10/18/17 08:26 Heparin Sodium/ Dextrose 500 ml @ 26.943 mls/ hr Q24H IV 10/17/17 23:00 11/16/17 22:59 10/17/17 23:03 Hydralazine HCl (Apresoline) 25 mg Q6H PRN ORAL SBP > 160mmHg 10/16/17 13:00 11/15/17 12:59 10/18/17 05:00 Levetiracetam (Keppra) 1,000 mg Q12HR ORAL 10/16/17 14:00 11/15/17 13:59 10/18/17 08:27 Memantine (Namenda) 10 mg Q12HR ORAL 10/16/17 21:00 11/15/17 20:59 10/18/17 08:27 Metoprolol Succinate (Toprol XL) 25 mg Q12HR ORAL 10/16/17 15:45 11/15/17 15:44 10/18/17 08:27 Patient Own Medication (Patient's Own Med) 1 ea Q12HR ORAL 10/16/17 21:00 11/15/17 20:59 10/18/17 08:50 Piperacillin Sod/ Tazobactam Sod 3.375 gm/Dextrose 55 ml @ 13.75 mls/ hr Q8H IVPB 10/18/17 08:00 10/18/17 17:00 10/18/17 08:25 Piperacillin Sod/ Tazobactam Sod 3.375 gm/Sodium Chloride 110 ml @ 27.5 mls/hr Q8H IVPB 10/19/17 00:00 10/25/17 07:59 Ramipril (Altace) 5 mg Q12HR ORAL 10/16/17 21:00 11/15/17 20:59 10/18/17 08:35 Sodium Chloride 1,000 ml @ 125 mls/hr Q8H IVLG 10/16/17 18:00 11/15/17 17:59 10/18/17 08:52 Vancomycin HCl (Vanco rx to dose) 1 ea DAILY PRN MISC Per rx protocol 10/16/17 14:45 11/15/17 14:44 Vancomycin HCl 1 gm/Dextrose 275 ml @ 183.708 mls/hr Q12HR@0600,1800 IVPB 10/16/17 18:00 10/21/17 17:59 10/18/17 05:00 Warfarin Sodium (Coumadin per pharmacy) 1 ea DAILY PRN MISC Per rx protocol 10/16/17 22:45 11/15/17 22:44 Dee Mora M.D. Oct 18, 2017 10:51
[2017-10-18] MEDS ORDERED: Albuterol/Ipratropium 3ml neb HHN PRN (11:15)
--- NOTE | 2017-10-18 11:20 | Pulmonology Progress Note ---
Assessment/Plan Assessment/Plan ASSESSMENT extensive bilateral PE syncopal vs presyncopal episode bacteremia( real vs contaminant) possible sepsis sigmoid diverticulitis pancreatitis lactic acidosis Lewy body dementia HTN anemia thrombocytopenia YUAN likely due to dehydration 2 to diarrhea -resolved seizure disorder PLAN OF CARE VI Heparin gtt and start Coumadin today to bridge to therapeutic INR watch PLT count and HH O2 HHN prn abx ID follows preliminary bl cx 1/4 +SCON, probably contamination aggressive hydration , monitor renal parameters, lytes, correct as needed, replace K today avoid nephrotoxic GI follows stool studies, stool C dif monitor counts, anemia w/up c/w folate deficiency on Folate replacement BP management with current regimen and optimize as needed neuro follows per neuro syncope vs presyncopal episode possibly due to dehydration vs recently increased dose of Adderall vs acute onset of extensive PE or combination of all continue Sinemet, Aricept, Namenda lipid panel stable no seizure activity while in the hospital continue Depakote psych follows transfer to tele case discussed and evaluated by supervising physician Subjective Allergies: Coded Allergies: No Known Allergies (Unverified , 10/01/17) Subjective denies chest pain, palpitations, SOB on heparin drip K low this am HH with small trend down on RA pulse ox stable Objective Last 24 Hour Vital Signs Date Time Temp Pulse Resp B/P (MAP) Pulse Ox O2 Delivery O2 Flow Rate FiO2 10/18/17 11:10 98.0 74 20 129/58 98 Room Air 10/18/17 08:35 146/89 10/18/17 08:27 62 146/89 10/18/17 08:00 99 10/18/17 07:54 97.7 62 20 146/89 98 10/18/17 06:21 136/88 10/18/17 05:00 160/87 10/18/17 04:00 98.5 64 20 161/80 97 10/18/17 04:00 55 10/18/17 00:18 98.5 64 20 157/89 98 10/18/17 00:00 57 10/17/17 20:47 88 146/84 10/17/17 20:46 146/92 10/17/17 20:00 54 10/17/17 20:00 98.7 55 20 157/80 98 Room Air 10/17/17 16:00 68 10/17/17 16:00 97.8 77 18 140/95 97 Nasal Cannula 2.0 10/17/17 12:00 97.8 67 18 117/77 95 Nasal Cannula 2.0 Intake and Output 10/17/17 10/18/17 19:00 07:00 Intake Total 1607.598 ml 2944.124 ml Output Total 450 ml Balance 1157.598 ml 2944.124 ml Intake Oral 600 ml 360 ml IV Total 1007.598 ml 2584.124 ml Output Urine Total 450 ml # Voids 2 5 # Bowel Movements 1 Objective General Appearance: WD/WN, no apparent distress, alert, depressed Lines, tubes and drains: peripheral HEENT: normocephalic, atraumatic, anicteric, mucous membranes moist Neck: non-tender, normal alignment, supple Respiratory/Chest: lungs clear, no respiratory distress, no accessory muscle use Cardiovascular/Chest: normal rate, regular rhythm - SR on tele Abdomen: normal bowel sounds, non tender, soft Extremities: normal range of motion, non-tender Skin Exam: warm/dry Neurologic: alert, oriented x 3, responsive Musculoskeletal: normal muscle bulk Microbiology Date/Time Source Procedure Growth Status 10/15/17 16:55 Blood Blood Culture - Preliminary NO GROWTH AFTER 48 HOURS Resulted 10/15/17 16:50 Blood Blood Culture - Final Staphylococcus Sp Coag Neg Complete 10/16/17 08:30 Rectum VRE Culture - Final NO VANCOMYCIN RESISTANT ENTEROCOCCUS ... Complete Laboratory Tests 10/17/17 13:20: Activated Partial Thromboplast Time 26 10/17/17 16:55: Vancomycin Level Trough 9.8 10/17/17 21:45: Activated Partial Thromboplast Time 96H 10/18/17 05:10: Activated Partial Thromboplast Time 77H, White Blood Count 8.9, Red Blood Count 2.48L, Hemoglobin 8.9L, Hematocrit 26.3L, Mean Corpuscular Volume 106H, Mean Corpuscular Hemoglobin 35.7H, Mean Corpuscular Hemoglobin Concent 33.8, Red Cell Distribution Width 14.3, Platelet Count 112L, Mean Platelet Volume 7.6, Neutrophils (%) (Auto) 69.9, Lymphocytes (%) (Auto) 21.2, Monocytes (%) (Auto) 5.2, Eosinophils (%) (Auto) 2.7, Basophils (%) (Auto) 1.0, Sodium Level 136, Potassium Level 3.1L, Chloride Level 104, Carbon Dioxide Level 25, Anion Gap 7, Blood Urea Nitrogen 7, Creatinine 0.7, Estimat Glomerular Filtration Rate > 60, Glucose Level 116H, Calcium Level 6.9L, Lipase 992H Current Medications Medications (Trade) Dose Ordered Sig/Patricia Route PRN Reason Start Time Stop Time Status Last Admin Dose Admin Aspirin (Ecotrin) 81 mg DAILY ORAL 10/17/17 09:00 11/16/17 08:59 10/18/17 08:51 Atorvastatin Calcium (Lipitor) 20 mg BEDTIME ORAL 10/16/17 21:00 11/15/17 20:59 10/17/17 20:46 Carbidopa/Levodopa (Sinemet 25/100) 5 ea THREE TIMES A DAY ORAL 10/16/17 18:00 11/15/17 17:59 10/18/17 08:26 Carbidopa/Levodopa (Sinemet CR 50/ 200) 2 ea QHS ORAL 10/16/17 21:00 11/15/17 20:59 10/17/17 20:45 Dextrose (Dextrose 50%) STAT PRN IV Hypoglycemia 10/16/17 09:30 11/15/17 09:29 Divalproex Sodium (Depakote) 500 mg EVERY 12 HOURS ORAL 10/17/17 21:00 11/16/17 20:59 10/18/17 08:27 Donepezil HCl (Aricept) 10 mg DAILY ORAL 10/17/17 09:00 11/16/17 08:59 10/18/17 08:26 Ergocalciferol (Drisdol) 50,000 intlu QWEEK ORAL 10/17/17 09:00 11/16/17 08:59 10/17/17 11:27 Flecainide Acetate (Tambocor) 50 mg Q12HR ORAL 10/16/17 13:00 11/15/17 12:59 10/18/17 08:26 Folic Acid (Folate) 1 mg DAILY ORAL 10/17/17 09:15 11/16/17 09:14 10/18/17 08:26 Heparin Sodium/ Dextrose 500 ml @ 26.943 mls/ hr Q24H IV 10/17/17 23:00 11/16/17 22:59 10/17/17 23:03 Hydralazine HCl (Apresoline) 25 mg Q6H PRN ORAL SBP > 160mmHg 10/16/17 13:00 11/15/17 12:59 10/18/17 05:00 Levetiracetam (Keppra) 1,000 mg Q12HR ORAL 10/16/17 14:00 11/15/17 13:59 10/18/17 08:27 Memantine (Namenda) 10 mg Q12HR ORAL 10/16/17 21:00 11/15/17 20:59 10/18/17 08:27 Metoprolol Succinate (Toprol XL) 25 mg Q12HR ORAL 10/16/17 15:45 11/15/17 15:44 10/18/17 08:27 Patient Own Medication (Patient's Own Med) 1 ea Q12HR ORAL 10/16/17 21:00 11/15/17 20:59 10/18/17 08:50 Piperacillin Sod/ Tazobactam Sod 3.375 gm/Dextrose 55 ml @ 13.75 mls/ hr Q8H IVPB 10/18/17 08:00 10/18/17 17:00 10/18/17 08:25 Piperacillin Sod/ Tazobactam Sod 3.375 gm/Sodium Chloride 110 ml @ 27.5 mls/hr Q8H IVPB 10/19/17 00:00 10/25/17 07:59 Ramipril (Altace) 5 mg Q12HR ORAL 10/16/17 21:00 11/15/17 20:59 10/18/17 08:35 Sodium Chloride 1,000 ml @ 125 mls/hr Q8H IVLG 10/16/17 18:00 11/15/17 17:59 10/18/17 08:52 Vancomycin HCl (Vanco rx to dose) 1 ea DAILY PRN MISC Per rx protocol 10/16/17 14:45 11/15/17 14:44 Vancomycin HCl 1 gm/Dextrose 275 ml @ 183.708 mls/hr Q12HR@0600,1800 IVPB 10/16/17 18:00 10/21/17 17:59 10/18/17 05:00 Warfarin Sodium (Coumadin per pharmacy) 1 ea DAILY PRN MISC Per rx protocol 10/16/17 22:45 11/15/17 22:44 George ([facility])Elida NP Oct 18, 2017 11:20
--- NOTE | 2017-10-18 12:04 | GI Progress Note ---
Assessment/Plan Problems: (1) Acute alcoholic pancreatitis ICD Codes: K85.20 - Alcohol induced acute pancreatitis without necrosis or infection SNOMED: 026286709 (2) Sigmoid diverticulitis ICD Codes: K57.32 - Diverticulitis of large intestine without perforation or abscess without bleeding SNOMED: 911606100 (3) Hypoalbuminemia ICD Codes: E88.09 - Other disorders of plasma-protein metabolism, not elsewhere classified SNOMED: 659927945 (4) Anemia ICD Codes: D64.9 - Anemia, unspecified SNOMED: 241640935 (5) Pancreatitis ICD Codes: K85.90 - Acute pancreatitis without necrosis or infection, unspecified SNOMED: 50238831 Status: stable, progressing Status Narrative Discussed with Dr. Elizondo. Assessment/Plan macrocytic, hyperchromic anemia CT AP reviewed >> PE, sigmoid diverticulitis, fatty liver elevated lipase anemia work up regular diet OB stool r/o GI bleed monitor H&H, prn transfusions send for cdiff/stool studies ppi folate PO abx IV/PO hydration repeat imaging prn fu labs, lipase levels will need outpatient colonoscopy x 2 months after dc for diverticulitis Subjective Gastrointestinal/Abdominal: Reports: no symptoms Objective Last 24 Hour Vital Signs Date Time Temp Pulse Resp B/P (MAP) Pulse Ox O2 Delivery O2 Flow Rate FiO2 10/18/17 11:10 98.0 74 20 129/58 98 Room Air 10/18/17 08:35 146/89 10/18/17 08:27 62 146/89 10/18/17 08:00 99 10/18/17 07:54 97.7 62 20 146/89 98 10/18/17 06:21 136/88 10/18/17 05:00 160/87 10/18/17 04:00 98.5 64 20 161/80 97 10/18/17 04:00 55 10/18/17 00:18 98.5 64 20 157/89 98 10/18/17 00:00 57 10/17/17 20:47 88 146/84 10/17/17 20:46 146/92 10/17/17 20:00 54 10/17/17 20:00 98.7 55 20 157/80 98 Room Air 10/17/17 16:00 68 10/17/17 16:00 97.8 77 18 140/95 97 Nasal Cannula 2.0 Intake and Output 10/17/17 10/18/17 19:00 07:00 Intake Total 1607.598 ml 2944.124 ml Output Total 450 ml Balance 1157.598 ml 2944.124 ml Intake Oral 600 ml 360 ml IV Total 1007.598 ml 2584.124 ml Output Urine Total 450 ml # Voids 2 5 # Bowel Movements 1 Laboratory Tests Test 10/17/17 13:20 10/17/17 16:55 10/17/17 21:45 10/18/17 05:10 Activated Partial Thromboplast Time 26 SEC (23-33) 96 SEC (23-33) H 77 SEC (23-33) H Vancomycin Level Trough 9.8 ug/mL (5.0-12.0) White Blood Count 8.9 K/UL (4.8-10.8) Red Blood Count 2.48 M/UL (4.70-6.10) L Hemoglobin 8.9 G/DL (14.2-18.0) L Hematocrit 26.3 % (42.0-52.0) L Mean Corpuscular Volume 106 FL (80-99) H Mean Corpuscular Hemoglobin 35.7 PG (27.0-31.0) H Mean Corpuscular Hemoglobin Concent 33.8 G/DL (32.0-36.0) Red Cell Distribution Width 14.3 % (11.6-14.8) Platelet Count 112 K/UL (150-450) L Mean Platelet Volume 7.6 FL (6.5-10.1) Neutrophils (%) (Auto) 69.9 % (45.0-75.0) Lymphocytes (%) (Auto) 21.2 % (20.0-45.0) Monocytes (%) (Auto) 5.2 % (1.0-10.0) Eosinophils (%) (Auto) 2.7 % (0.0-3.0) Basophils (%) (Auto) 1.0 % (0.0-2.0) Sodium Level 136 MMOL/L (136-145) Potassium Level 3.1 MMOL/L (3.5-5.1) L Chloride Level 104 MMOL/L (98-107) Carbon Dioxide Level 25 MMOL/L (21-32) Anion Gap 7 mmol/L (5-15) Blood Urea Nitrogen 7 mg/dL (7-18) Creatinine 0.7 MG/DL (0.55-1.30) Estimat Glomerular Filtration Rate > 60 mL/min (>60) Glucose Level 116 MG/DL (74-106) H Calcium Level 6.9 MG/DL (8.5-10.1) L Lipase 992 U/L (73-393) H Height (Feet): 5 Height (Inches): 10.00 Weight (Pounds): 198 General Appearance: WD/WN, no apparent distress, alert Cardiovascular: normal rate Respiratory/Chest: normal breath sounds, no respiratory distress Abdominal Exam: normal bowel sounds, non tender, soft Extremities: normal range of motion, non-tender Carolina Reed N.P. Oct 18, 2017 12:04
[2017-10-18] MEDS: Heparin 25,000u/D5W 500ml (VTE/AF) IV SCH (12:49)
--- NOTE | 2017-10-18 16:22 | Neurology Progress Note ---
Interim History Interim History Interim History Mr. Urbina feels well. He refuses to get out of bed as per his nurse. He has not been eating much as per his nurse. He is able to breathe well. The mind has been clear. He has had no parkinsonian symptoms. He denies any new neurologic symptoms. Review of Systems Neuro Review of Systems Benign. Objective Physical Exam Last Vital Signs Date Time Temp Pulse Resp B/P (MAP) Pulse Ox O2 Delivery O2 Flow Rate FiO2 10/18/17 15:03 98.0 73 20 150/72 99 10/18/17 11:10 Room Air 10/17/17 16:00 2.0 10/16/17 07:20 96 Laboratory Tests Test 10/17/17 16:55 10/17/17 21:45 10/18/17 05:10 Vancomycin Level Trough 9.8 ug/mL (5.0-12.0) Activated Partial Thromboplast Time 96 SEC (23-33) H 77 SEC (23-33) H White Blood Count 8.9 K/UL (4.8-10.8) Red Blood Count 2.48 M/UL (4.70-6.10) L Hemoglobin 8.9 G/DL (14.2-18.0) L Hematocrit 26.3 % (42.0-52.0) L Mean Corpuscular Volume 106 FL (80-99) H Mean Corpuscular Hemoglobin 35.7 PG (27.0-31.0) H Mean Corpuscular Hemoglobin Concent 33.8 G/DL (32.0-36.0) Red Cell Distribution Width 14.3 % (11.6-14.8) Platelet Count 112 K/UL (150-450) L Mean Platelet Volume 7.6 FL (6.5-10.1) Neutrophils (%) (Auto) 69.9 % (45.0-75.0) Lymphocytes (%) (Auto) 21.2 % (20.0-45.0) Monocytes (%) (Auto) 5.2 % (1.0-10.0) Eosinophils (%) (Auto) 2.7 % (0.0-3.0) Basophils (%) (Auto) 1.0 % (0.0-2.0) Sodium Level 136 MMOL/L (136-145) Potassium Level 3.1 MMOL/L (3.5-5.1) L Chloride Level 104 MMOL/L (98-107) Carbon Dioxide Level 25 MMOL/L (21-32) Anion Gap 7 mmol/L (5-15) Blood Urea Nitrogen 7 mg/dL (7-18) Creatinine 0.7 MG/DL (0.55-1.30) Estimat Glomerular Filtration Rate > 60 mL/min (>60) Glucose Level 116 MG/DL (74-106) H Calcium Level 6.9 MG/DL (8.5-10.1) L Lipase 992 U/L (73-393) H Neurologic Exam Objective PHYSICAL EXAMINATION: GENERAL: He is a well-developed, well-nourished, pleasant gentleman, lying in bed, in no acute distress. HEAD: Normocephalic and atraumatic. EENT: Examination benign . NECK: No neck rigidity was observed. NEUROLOGIC EXAMINATION: MENTAL STATUS EXAMINATION: He was awake and alert. He was oriented to self, hospital, and September. He did not know the name of the hospital and did not know the date or year. He was able to recall 3/3 words immediately, but could only remember 2/3 words in 1 minute and 3 minutes even on the second trial. He was able to remember presidents, Trump and Obama with hints, but could not remember presidents prior to that even with hints. His mathematical skills were fairly good. His visuospatial function was preserved. SPEECH: He had no dysarthria. LANGUAGE: He had a mild anomia for low-frequency words. CRANIAL NERVE EXAMINATION: II: The visual hayes were intact on confrontation testing. III, IV & : The external ocular movements were full and the pupils 3 mm in diameter, equal, round, regular, and reactive to light. V: He had normal facial sensations, and the temporales, masseters, and pterygoids functioned normally. VII: He had normal facial expressions and no facial asymmetry. VIII: He was able to hear well bilaterally and had no nystagmus. IX: The palate moved symmetrically on phonation. X: He had no hoarseness of voice. XI: The sternocleidomastoids and trapezii functioned normally. XII: The tongue was in the midline without any fasciculations or atrophy. MOTOR SYSTEM: The tone was normal in all four extremities. Examination of muscle mass revealed no focal wasting. Examination of power revealed grade 5/5 power in all muscle groups tested. SENSORY EXAMINATION: He had intact sensations to pinprick, light touch, and graphesthesia. COORDINATION: He performed well on [id number] and [id number] testing. On Romberg test, he swayed, but did not fall to one side or the other. REFLEXES: 1++ and bilaterally symmetrical at the biceps, triceps, brachioradialis, and knees, trace positive at both ankles. The plantar responses were flexor bilaterally. STANCE & GAIT: He did not want to get out of bed. ABNORMAL MOVEMENTS: Tremor (4 to 5 Hz): G 0/4. Rigidity: G 0/4. Bradykinesia: G 0/4. Hypomimia: G 0/4. Hypophonia: G 0/4. Parkinsonian stance: G 0/4. Parkinsonian gait: G 0/4. Impression/Recommendations Diagnostic Impression 1. Mr. Faisal Urbina is a 67-year-old, right-handed, gentleman, who does have a past history of hypertension, Lewy body dementia, and generalized seizures since November 2016, who for the last few days has been increasingly drowsy, felt unwell, has not been eating well, and was complaining of worsening shortness of breath and chest pain. He was brought into the [facility] emergency room and discovered to have extensive bilateral pulmonary emboli. He was started on intravenous heparin and has been significantly better. 2. He feels well. He refuses to get out of bed as per his nurse. He has not been eating much as per his nurse. He is able to breathe well. The mind has been clear. He has had no parkinsonian symptoms. He denies any new neurologic symptoms. 3. On neurological examination at this time, he does have problems with orientation, recent and remote memory, a mild anomia, globally diminished deep tendon reflexes, but no parkinsonian signs. 4. The patient's history and neurological examination are most compatible with an underlying dementia labeled Lewy body disease. He however is not exhibiting any parkinsonian signs at this point in time. The recent decline in function was most probably related to his pulmonary emboli. Recommendations 1. Continue present management. 2. Continue present neurological regimen of Sinemet, Aricept, and Namenda. 3. Treatment of pulmonary embolism as per Dr. Garcia. 4. Mobilize rapidly. Lindsay Andrews M.D., Jorge L.PGlenn. LINDSAY ANDREWS Oct 18, 2017 16:22
[2017-10-18 17:18] LABS: INR 1.1 (0.9-1.1)
[2017-10-18] MEDS: Levodopa/Carbidopa CR 50/200 tab ORAL SCH (20:47)
[2017-10-18] MEDS: Atorvastatin 20mg tab ORAL SCH (20:48)
--- NOTE | 2017-10-18 21:59 | General Progress Note ---
Assessment/Plan Assessment/Plan ASSESSMENT AND RECOMMENDATIONS: 1. Pulmonary emboli. Continue the patient on heparin drip + Coumadin with INR goal between 2 and 3. 2. Macrocytic hyperchromic anemia, currently downtrending 3. Alcoholic pancreatitis, with elevated lipase 3. Diverticulitis, gi following 4. Atherosclerotic disease. He has been seen by Cardiology Service. 5. Lewy body dementia. He has been seen by Neurology. Continue current medications. 6. Dehydration and weakness. Continue fluids as needed. 8. Acute kidney injury due to dehydration. 9. Lactic acidosis, positive cultures noted. 10. Continue empiric antibiotics. Subjective Allergies: Coded Allergies: No Known Allergies (Unverified , 10/01/17) All Systems: reviewed and negative except above Subjective afebrile Objective Last 24 Hour Vital Signs Date Time Temp Pulse Resp B/P (MAP) Pulse Ox O2 Delivery O2 Flow Rate FiO2 10/18/17 20:49 79 153/89 10/18/17 20:48 153/89 10/18/17 16:30 79 10/18/17 15:03 98.0 73 20 150/72 99 10/18/17 12:35 85 10/18/17 11:10 98.0 74 20 129/58 98 Room Air 10/18/17 08:35 146/89 10/18/17 08:27 62 146/89 10/18/17 08:00 99 10/18/17 07:54 97.7 62 20 146/89 98 10/18/17 06:21 136/88 10/18/17 05:00 160/87 10/18/17 04:00 98.5 64 20 161/80 97 10/18/17 04:00 55 10/18/17 00:18 98.5 64 20 157/89 98 10/18/17 00:00 57 Intake and Output 10/17/17 10/18/17 19:00 07:00 Intake Total 1607.598 ml 2944.124 ml Output Total 450 ml Balance 1157.598 ml 2944.124 ml Intake Oral 600 ml 360 ml IV Total 1007.598 ml 2584.124 ml Output Urine Total 450 ml # Voids 2 5 # Bowel Movements 1 Laboratory Tests 10/18/17 05:10: White Blood Count 8.9, Red Blood Count 2.48L, Hemoglobin 8.9L, Hematocrit 26.3L , Mean Corpuscular Volume 106H, Mean Corpuscular Hemoglobin 35.7H, Mean Corpuscular Hemoglobin Concent 33.8, Red Cell Distribution Width 14.3, Platelet Count 112L, Mean Platelet Volume 7.6, Neutrophils (%) (Auto) 69.9, Lymphocytes ( %) (Auto) 21.2, Monocytes (%) (Auto) 5.2, Eosinophils (%) (Auto) 2.7, Basophils (%) (Auto) 1.0, Prothrombin Time 11.1, Prothromb Time International Ratio 1.1, Activated Partial Thromboplast Time 77H, Sodium Level 136, Potassium Level 3.1L , Chloride Level 104, Carbon Dioxide Level 25, Anion Gap 7, Blood Urea Nitrogen 7, Creatinine 0.7, Estimat Glomerular Filtration Rate > 60, Glucose Level 116H, Calcium Level 6.9L, Lipase 992H 10/18/17 17:15: Vancomycin Level Trough 6.7 Height (Feet): 5 Height (Inches): 10.00 Weight (Pounds): 198 General Appearance: no apparent distress EENT: normal ENT inspection Neck: normal alignment Cardiovascular: normal peripheral pulses Abdomen: normal bowel sounds Pelvis: normal external exam Extremities: non-tender Janak Garcia Oct 18, 2017 21:59
--- NOTE | 2017-10-18 23:02 | General Progress Note ---
Subjective Date patient seen: Oct 18, 2017 Allergies: Coded Allergies: No Known Allergies (Unverified , 10/01/17) Objective Last 24 Hour Vital Signs Date Time Temp Pulse Resp B/P (MAP) Pulse Ox O2 Delivery O2 Flow Rate FiO2 10/18/17 20:49 79 153/89 10/18/17 20:48 153/89 10/18/17 20:00 97.2 79 20 153/89 98 10/18/17 20:00 81 10/18/17 16:30 79 10/18/17 15:03 98.0 73 20 150/72 99 10/18/17 12:35 85 10/18/17 11:10 98.0 74 20 129/58 98 Room Air 10/18/17 08:35 146/89 10/18/17 08:27 62 146/89 10/18/17 08:00 99 10/18/17 07:54 97.7 62 20 146/89 98 10/18/17 06:21 136/88 10/18/17 05:00 160/87 10/18/17 04:00 98.5 64 20 161/80 97 10/18/17 04:00 55 10/18/17 00:18 98.5 64 20 157/89 98 10/18/17 00:00 57 Intake and Output 10/17/17 10/18/17 19:00 07:00 Intake Total 1607.598 ml 2944.124 ml Output Total 450 ml Balance 1157.598 ml 2944.124 ml Intake Oral 600 ml 360 ml IV Total 1007.598 ml 2584.124 ml Output Urine Total 450 ml # Voids 2 5 # Bowel Movements 1 Laboratory Tests 10/18/17 05:10: White Blood Count 8.9, Red Blood Count 2.48L, Hemoglobin 8.9L, Hematocrit 26.3L , Mean Corpuscular Volume 106H, Mean Corpuscular Hemoglobin 35.7H, Mean Corpuscular Hemoglobin Concent 33.8, Red Cell Distribution Width 14.3, Platelet Count 112L, Mean Platelet Volume 7.6, Neutrophils (%) (Auto) 69.9, Lymphocytes ( %) (Auto) 21.2, Monocytes (%) (Auto) 5.2, Eosinophils (%) (Auto) 2.7, Basophils (%) (Auto) 1.0, Prothrombin Time 11.1, Prothromb Time International Ratio 1.1, Activated Partial Thromboplast Time 77H, Sodium Level 136, Potassium Level 3.1L , Chloride Level 104, Carbon Dioxide Level 25, Anion Gap 7, Blood Urea Nitrogen 7, Creatinine 0.7, Estimat Glomerular Filtration Rate > 60, Glucose Level 116H, Calcium Level 6.9L, Lipase 992H 10/18/17 17:15: Vancomycin Level Trough 6.7 Height (Feet): 5 Height (Inches): 10.00 Weight (Pounds): 198 Caitlyn Rousseau M.D. Oct 18, 2017 23:02
[2017-10-19] VITALS: BP 133/90
[2017-10-19] MEDS: Piperacillin/Tazobactam 3.375 GM in NS 110 ML IVPB SCH ×4 (00:48→10:46)
[2017-10-19] MEDS ORDERED: Vancomycin 1250mg/D5W 250ml IVPB SCH (02:00)
[2017-10-19 04:44] LABS: BASOPHILS % (AUTO) 0.8 % (0.0-2.0); EOSINOPHILS % (AUTO) 4.6 % (0.0-3.0); HEMATOCRIT 26.6 % (42.0-52.0); HEMOGLOBIN 8.8 G/DL (14.2-18.0); LYMPHOCYTES % (AUTO) 26.2 % (20.0-45.0); MEAN CORPUSCULAR VOLUME 108 FL (80-99); MONOCYTES % (AUTO) 6.9 % (1.0-10.0); NEUTROPHILS % (AUTO) 61.5 % (45.0-75.0); PLATELET COUNT 132 K/UL (150-450); RED BLOOD COUNT 2.46 M/UL (4.70-6.10); RED CELL DISTRIBUTION WIDTH 14.4 % (11.6-14.8); WHITE BLOOD COUNT 8.1 K/UL (4.8-10.8)
[2017-10-19 04:59] VITALS: BP 112/93
[2017-10-19 05:05] LABS: ANION GAP 10 mmol/L (5-15); BLOOD UREA NITROGEN 5 mg/dL (7-18); CALCIUM 7.1 MG/DL (8.5-10.1); CARBON DIOXIDE 23 MMOL/L (21-32); CHLORIDE 106 MMOL/L (98-107); CREATININE 0.6 MG/DL (0.55-1.30); POTASSIUM 3.3 MMOL/L (3.5-5.1); SODIUM 139 MMOL/L (136-145)
[2017-10-19] MEDS ORDERED: Heparin 1000 units/ml 1ml Vial IV ONE (05:45)
[2017-10-19] MEDS ORDERED: Heparin 5000 units/ml inj IV ONE (06:15)
[2017-10-19] MEDS: Heparin 25,000u/D5W 500ml (VTE/AF) IV SCH ×2 (06:15→12:53)
[2017-10-19 08:00] VITALS: BP 140/82
--- NOTE | 2017-10-19 08:09 | Infectious Diseases Prog Note ---
Assessment/Plan Assessment/Plan Abx: IV Vanco 10/16- Zosyn 10/16- Assessment: Sigmoid diverticulitis and pancreatitis -CT abd/p: Sigmoid diverticulitis. No abscess. Fatty liver. Atherosclerotic disease Perinephric stranding nonspecific. -Lipase ~1k Lactic acidosis- 2ry to above- resolved Afebrile, mild leukocytosis- resoled 10/24 CoNS Bacteremia- likely contaminant- await repeat Bcx (?not collected) -10/15 1/+; 10/16 Bcx p B/E extensive PE -CTA chest: Extensive bilateral pulmonary embolus. Atherosclerotic disease. Minimal posterior basal atelectasis. The lungs are essentially clear with the exception of some minimal posterior basilar reticulation Lewy body dementia (dx ~5yrs ago) diverticulosis with diverticulitis HTN seizures disorder Plan: -d/c IV Vancomycin #4 -Continue Zosyn #4/7-10 for diverticulitis; upon discharge can transition to PO Cipro and Flagyl -obtain 2 sets of Bcx! -f/u cx -Monitor CBC/CMP, temperatures -Aspiration precautions Thank you for this consultation. Will continue to follow along with you. Discussed with RN. Subjective Allergies: Coded Allergies: No Known Allergies (Unverified , 10/01/17) Subjective afebrile no leukocytosis awaiting repaet Bcx-? cancelled, nor order or results on the computer Objective Vital Signs Last 24 Hour Vital Signs Date Time Temp Pulse Resp B/P (MAP) Pulse Ox O2 Delivery O2 Flow Rate FiO2 10/19/17 04:59 96.8 68 18 112/93 94 Room Air 10/19/17 00:00 98.1 77 18 133/90 96 Room Air 10/18/17 20:49 79 153/89 10/18/17 20:48 153/89 10/18/17 20:00 97.2 79 20 153/89 98 10/18/17 20:00 81 10/18/17 16:30 79 10/18/17 15:03 98.0 73 20 150/72 99 10/18/17 12:35 85 10/18/17 11:10 98.0 74 20 129/58 98 Room Air 10/18/17 08:35 146/89 10/18/17 08:27 62 146/89 Height (Feet): 5 Height (Inches): 10.00 Weight (Pounds): 198 Objective GENERAL: No distress. PULMONARY: Decreased breath sounds. CARDIOVASCULAR: Regular rate. No S3 or S4. ABDOMEN: Soft, nontender, and nondistended. EXTREMITIES: A 1+ edema. Microbiology Date/Time Source Procedure Growth Status 10/16/17 08:30 Nasal Nares MRSA Culture - Final NO METHICILLIN RESISTANT STAPH AUREUS... Complete 10/16/17 08:30 Rectum VRE Culture - Final NO VANCOMYCIN RESISTANT ENTEROCOCCUS ... Complete Laboratory Tests Test 10/18/17 17:15 10/19/17 04:10 Vancomycin Level Trough 6.7 ug/mL (5.0-12.0) White Blood Count 8.1 K/UL (4.8-10.8) Red Blood Count 2.46 M/UL (4.70-6.10) L Hemoglobin 8.8 G/DL (14.2-18.0) L Hematocrit 26.6 % (42.0-52.0) L Mean Corpuscular Volume 108 FL (80-99) H Mean Corpuscular Hemoglobin 35.7 PG (27.0-31.0) H Mean Corpuscular Hemoglobin Concent 33.1 G/DL (32.0-36.0) Red Cell Distribution Width 14.4 % (11.6-14.8) Platelet Count 132 K/UL (150-450) L Mean Platelet Volume 8.3 FL (6.5-10.1) Neutrophils (%) (Auto) 61.5 % (45.0-75.0) Lymphocytes (%) (Auto) 26.2 % (20.0-45.0) Monocytes (%) (Auto) 6.9 % (1.0-10.0) Eosinophils (%) (Auto) 4.6 % (0.0-3.0) H Basophils (%) (Auto) 0.8 % (0.0-2.0) Prothrombin Time 10.4 SEC (9.30-11.50) Prothromb Time International Ratio 1.0 (0.9-1.1) Activated Partial Thromboplast Time 42 SEC (23-33) H Sodium Level 139 MMOL/L (136-145) Potassium Level 3.3 MMOL/L (3.5-5.1) L Chloride Level 106 MMOL/L (98-107) Carbon Dioxide Level 23 MMOL/L (21-32) Anion Gap 10 mmol/L (5-15) Blood Urea Nitrogen 5 mg/dL (7-18) L Creatinine 0.6 MG/DL (0.55-1.30) Estimat Glomerular Filtration Rate > 60 mL/min (>60) Glucose Level 96 MG/DL (74-106) Calcium Level 7.1 MG/DL (8.5-10.1) L Magnesium Level 1.5 MG/DL (1.8-2.4) L Lipase 718 U/L (73-393) H Current Medications Medications (Trade) Dose Ordered Sig/Patricia Route PRN Reason Start Time Stop Time Status Last Admin Dose Admin Albuterol/ Ipratropium (Albuterol/ Ipratropium) 3 ml Q4H PRN HHN Shortness of Breath 10/18/17 11:15 10/23/17 11:14 Aspirin (Ecotrin) 81 mg DAILY ORAL 10/17/17 09:00 11/16/17 08:59 10/18/17 08:51 Atorvastatin Calcium (Lipitor) 20 mg BEDTIME ORAL 10/16/17 21:00 11/15/17 20:59 10/18/17 20:48 Carbidopa/Levodopa (Sinemet 25/100) 5 ea THREE TIMES A DAY ORAL 10/16/17 18:00 11/15/17 17:59 10/18/17 17:07 Carbidopa/Levodopa (Sinemet CR 50/ 200) 2 ea QHS ORAL 10/16/17 21:00 11/15/17 20:59 10/18/17 20:47 Dextrose (Dextrose 50%) STAT PRN IV Hypoglycemia 10/16/17 09:30 11/15/17 09:29 Divalproex Sodium (Depakote) 500 mg EVERY 12 HOURS ORAL 10/17/17 21:00 11/16/17 20:59 10/18/17 20:49 Donepezil HCl (Aricept) 10 mg DAILY ORAL 10/17/17 09:00 11/16/17 08:59 10/18/17 08:26 Ergocalciferol (Drisdol) 50,000 intlu QWEEK ORAL 10/17/17 09:00 11/16/17 08:59 10/17/17 11:27 Flecainide Acetate (Tambocor) 50 mg Q12HR ORAL 10/16/17 13:00 11/15/17 12:59 10/18/17 20:48 Folic Acid (Folate) 1 mg DAILY ORAL 10/17/17 09:15 11/16/17 09:14 10/18/17 08:26 Heparin Sodium/ Dextrose 500 ml @ 32.931 mls/ hr Q24H IV 10/19/17 05:45 11/16/17 22:59 10/19/17 06:15 Hydralazine HCl (Apresoline) 25 mg Q6H PRN ORAL SBP > 160mmHg 10/16/17 13:00 11/15/17 12:59 10/18/17 05:00 Levetiracetam (Keppra) 1,000 mg Q12HR ORAL 10/16/17 14:00 11/15/17 13:59 10/18/17 20:47 Memantine (Namenda) 10 mg Q12HR ORAL 10/16/17 21:00 11/15/17 20:59 10/18/17 20:49 Metoprolol Succinate (Toprol XL) 25 mg Q12HR ORAL 10/16/17 15:45 11/15/17 15:44 10/18/17 20:49 Patient Own Medication (Patient's Own Med) 1 ea Q12HR ORAL 10/16/17 21:00 11/15/17 20:59 10/18/17 20:46 Piperacillin Sod/ Tazobactam Sod 3.375 gm/Sodium Chloride 110 ml @ 27.5 mls/hr Q8H IVPB 10/19/17 00:00 10/25/17 07:59 10/19/17 00:48 Ramipril (Altace) 5 mg Q12HR ORAL 10/16/17 21:00 11/15/17 20:59 10/18/17 20:48 Sodium Chloride 1,000 ml @ 125 mls/hr Q8H IVLG 10/16/17 18:00 11/15/17 17:59 10/19/17 02:00 Vancomycin HCl (Vanco rx to dose) 1 ea DAILY PRN MISC Per rx protocol 10/16/17 14:45 11/15/17 14:44 Vancomycin HCl/ Dextrose 250 ml @ 166.667 mls/hr Q12HR@0200,1400 IVPB 10/19/17 02:00 10/24/17 01:59 10/19/17 05:01 Warfarin Sodium (Coumadin per pharmacy) 1 ea DAILY PRN MISC Per rx protocol 10/16/17 22:45 11/15/17 22:44 Dee Mora M.D. Oct 19, 2017 08:09
[2017-10-19] MEDS: NUPLAZID 17 MG ORAL SCH ×2 (10:37→21:39)
[2017-10-19] MEDS: Aspirin EC 81mg tab ORAL SCH (10:38)
[2017-10-19] MEDS: Metoprolol Succinate XL 25mg tab ORAL SCH ×2 (10:38→21:37)
[2017-10-19] MEDS: Donepezil 10mg tab ORAL SCH (10:38)
[2017-10-19] MEDS: Memantine 10mg tab ORAL SCH ×2 (10:40→21:37)
[2017-10-19] MEDS: Depakote 500mg tab ORAL SCH ×2 (10:40→21:37)
[2017-10-19] MEDS: Levodopa/Carbidopa 25/100 tab ORAL SCH ×4 (10:41→21:36)
[2017-10-19] MEDS: Ramipril 5mg cap ORAL SCH ×2 (10:42→21:38)
[2017-10-19 12:00] VITALS: BP 139/80
--- NOTE | 2017-10-19 13:57 | Neurology Progress Note ---
Interim History Interim History Interim History Mr. Urbina feels very well. He is in bed now. He is eating well as per his . He is able to breathe well. The mind has been clear. He has had no parkinsonian symptoms. He denies any new neurologic symptoms. As per his he is not getting his antiparkinsonian medicines as he was taking at home. Review of Systems Neuro Review of Systems Benign. Objective Physical Exam Last Vital Signs Date Time Temp Pulse Resp B/P (MAP) Pulse Ox O2 Delivery O2 Flow Rate FiO2 10/19/17 12:00 97.3 56 20 139/80 94 10/19/17 08:01 Room Air 21 10/17/17 16:00 2.0 Laboratory Tests Test 10/18/17 17:15 10/19/17 04:10 10/19/17 12:15 Vancomycin Level Trough 6.7 ug/mL (5.0-12.0) White Blood Count 8.1 K/UL (4.8-10.8) Red Blood Count 2.46 M/UL (4.70-6.10) L Hemoglobin 8.8 G/DL (14.2-18.0) L Hematocrit 26.6 % (42.0-52.0) L Mean Corpuscular Volume 108 FL (80-99) H Mean Corpuscular Hemoglobin 35.7 PG (27.0-31.0) H Mean Corpuscular Hemoglobin Concent 33.1 G/DL (32.0-36.0) Red Cell Distribution Width 14.4 % (11.6-14.8) Platelet Count 132 K/UL (150-450) L Mean Platelet Volume 8.3 FL (6.5-10.1) Neutrophils (%) (Auto) 61.5 % (45.0-75.0) Lymphocytes (%) (Auto) 26.2 % (20.0-45.0) Monocytes (%) (Auto) 6.9 % (1.0-10.0) Eosinophils (%) (Auto) 4.6 % (0.0-3.0) H Basophils (%) (Auto) 0.8 % (0.0-2.0) Prothrombin Time 10.4 SEC (9.30-11.50) Prothromb Time International Ratio 1.0 (0.9-1.1) Activated Partial Thromboplast Time 42 SEC (23-33) H 72 SEC (23-33) H Sodium Level 139 MMOL/L (136-145) Potassium Level 3.3 MMOL/L (3.5-5.1) L Chloride Level 106 MMOL/L (98-107) Carbon Dioxide Level 23 MMOL/L (21-32) Anion Gap 10 mmol/L (5-15) Blood Urea Nitrogen 5 mg/dL (7-18) L Creatinine 0.6 MG/DL (0.55-1.30) Estimat Glomerular Filtration Rate > 60 mL/min (>60) Glucose Level 96 MG/DL (74-106) Calcium Level 7.1 MG/DL (8.5-10.1) L Magnesium Level 1.5 MG/DL (1.8-2.4) L Lipase 718 U/L (73-393) H Neurologic Exam Objective PHYSICAL EXAMINATION: GENERAL: He is a well-developed, well-nourished, pleasant gentleman, lying in bed, in no acute distress. HEAD: Normocephalic and atraumatic. EENT: Examination benign . NECK: No neck rigidity was observed. NEUROLOGIC EXAMINATION: MENTAL STATUS EXAMINATION: He was awake and alert. He was oriented to self, hospital, and September. He did not know the name of the hospital and did not know the date or year. He was able to recall 3/3 words immediately, but could only remember 2/3 words in 1 minute and 3 minutes even on the second trial. He was able to remember presidents, Trump and Obama with hints, but could not remember presidents prior to that even with hints. His mathematical skills were fairly good. His visuospatial function was preserved. SPEECH: He had no dysarthria. LANGUAGE: He had a mild anomia for low-frequency words. CRANIAL NERVE EXAMINATION: II: The visual hayes were intact on confrontation testing. III, IV & : The external ocular movements were full and the pupils 3 mm in diameter, equal, round, regular, and reactive to light. V: He had normal facial sensations, and the temporales, masseters, and pterygoids functioned normally. VII: He had normal facial expressions and no facial asymmetry. VIII: He was able to hear well bilaterally and had no nystagmus. IX: The palate moved symmetrically on phonation. X: He had no hoarseness of voice. XI: The sternocleidomastoids and trapezii functioned normally. XII: The tongue was in the midline without any fasciculations or atrophy. MOTOR SYSTEM: The tone was normal in all four extremities. Examination of muscle mass revealed no focal wasting. Examination of power revealed grade 5/5 power in all muscle groups tested. SENSORY EXAMINATION: He had intact sensations to pinprick, light touch, and graphesthesia. COORDINATION: He performed well on aalhgv-gl-crts and pdqy-ag-cqit testing. REFLEXES: 1++ and bilaterally symmetrical at the biceps, triceps, brachioradialis, and knees, trace positive at both ankles. The plantar responses were flexor bilaterally. STANCE & GAIT: He did not want to get out of bed. ABNORMAL MOVEMENTS: Tremor (4 to 5 Hz): G 0/4. Rigidity: G 0/4. Bradykinesia: G 0/4. Hypomimia: G 0/4. Hypophonia: G 0/4. Parkinsonian stance: G 0/4. Parkinsonian gait: G 0/4. Impression/Recommendations Diagnostic Impression 1. Mr. Faisal Urbina is a 67-year-old, right-handed, gentleman, who does have a past history of hypertension, Lewy body dementia, and generalized seizures since November 2016, who for the last few days has been increasingly drowsy, felt unwell, has not been eating well, and was complaining of worsening shortness of breath and chest pain. He was brought into the [facility] emergency room and discovered to have extensive bilateral pulmonary emboli. He was started on intravenous heparin and has been significantly better. 2. He feels well. He did get out of bed earlier and walked well. He is eating better as per his . He is able to breathe well. The mind has been clear. He has had no parkinsonian symptoms. He denies any new neurologic symptoms. 3. On neurological examination at this time, he does have problems with orientation, recent and remote memory, a mild anomia, globally diminished deep tendon reflexes, but no parkinsonian signs. 4. The patient's history and neurological examination are most compatible with an underlying dementia labeled "Lewy body disease." He however is not exhibiting any parkinsonian signs at this point in time. The recent decline in function was most probably related to his pulmonary emboli. Recommendations 1. Continue present management. 2. Continue present neurological regimen of Sinemet, Aricept, and Namenda. 3. Treatment of pulmonary embolism as per Dr. Garcia. 4. Mobilize rapidly. Lindsay Andrews M.D., M.S.P.H. LINDSAY ANDREWS Oct 19, 2017 13:57
[2017-10-19 16:00] VITALS: BP 148/85
[2017-10-19] MEDS ORDERED: Warfarin Sodium 7.5mg ORAL ONE (17:00)
[2017-10-19 19:53] VITALS: BP 127/59
--- NOTE | 2017-10-19 19:54 | General Progress Note ---
Assessment/Plan Assessment/Plan ASSESSMENT AND RECOMMENDATIONS: 1. Pulmonary emboli. Continue the patient on Xarelto. 2. Macrocytic hyperchromic anemia, currently downtrending 3. Alcoholic pancreatitis, with elevated lipase 3. Diverticulitis, gi following 4. Atherosclerotic disease. He has been seen by Cardiology Service. 5. Lewy body dementia. He has been seen by Neurology. Continue current medications. 6. Dehydration and weakness. Continue fluids as needed. 8. Acute kidney injury due to dehydration. 9. Lactic acidosis, positive cultures noted. 10. Continue empiric antibiotics. Subjective Allergies: Coded Allergies: No Known Allergies (Unverified , 10/01/17) All Systems: reviewed and negative except above Subjective NAD Objective Last 24 Hour Vital Signs Date Time Temp Pulse Resp B/P (MAP) Pulse Ox O2 Delivery O2 Flow Rate FiO2 10/19/17 16:00 97.3 76 20 148/85 99 10/19/17 16:00 68 10/19/17 12:00 97.3 56 20 139/80 94 10/19/17 12:00 56 10/19/17 10:42 140/82 10/19/17 10:38 82 140/82 10/19/17 08:01 82 18 Room Air 21 10/19/17 08:00 97.3 69 20 140/82 95 10/19/17 08:00 74 10/19/17 04:59 96.8 68 18 112/93 94 Room Air 10/19/17 00:00 98.1 77 18 133/90 96 Room Air 10/18/17 20:49 79 153/89 10/18/17 20:48 153/89 10/18/17 20:00 97.2 79 20 153/89 98 10/18/17 20:00 81 Intake and Output 10/18/17 10/19/17 19:00 07:00 Intake Total 2326.201 ml 984.903 ml Output Total 1100 ml Balance 1226.201 ml 984.903 ml Intake Oral 600 ml IV Total 1726.201 ml 984.903 ml Output Urine Total 1100 ml # Voids 1 1 # Bowel Movements 3 3 Laboratory Tests 10/19/17 04:10: White Blood Count 8.1, Red Blood Count 2.46L, Hemoglobin 8.8L, Hematocrit 26.6L , Mean Corpuscular Volume 108H, Mean Corpuscular Hemoglobin 35.7H, Mean Corpuscular Hemoglobin Concent 33.1, Red Cell Distribution Width 14.4, Platelet Count 132L, Mean Platelet Volume 8.3, Neutrophils (%) (Auto) 61.5, Lymphocytes ( %) (Auto) 26.2, Monocytes (%) (Auto) 6.9, Eosinophils (%) (Auto) 4.6H, Basophils (%) (Auto) 0.8, Prothrombin Time 10.4, Prothromb Time International Ratio 1.0, Activated Partial Thromboplast Time 42H, Sodium Level 139, Potassium Level 3.3L, Chloride Level 106, Carbon Dioxide Level 23, Anion Gap 10, Blood Urea Nitrogen 5L, Creatinine 0.6, Estimat Glomerular Filtration Rate > 60, Glucose Level 96, Calcium Level 7.1L, Magnesium Level 1.5L, Lipase 718H 10/19/17 12:15: Activated Partial Thromboplast Time 72H Height (Feet): 5 Height (Inches): 10.00 Weight (Pounds): 198 General Appearance: WD/WN EENT: normal ENT inspection Neck: normal alignment Cardiovascular: normal peripheral pulses, normal rate Neurologic: patient advocate II-XII grossly normal, normal mood/affect Skin: normal pigmentation Janak Garcia Oct 19, 2017 19:54
--- NOTE | 2017-10-19 20:23 | General Progress Note ---
Assessment/Plan Assessment/Plan Assessment (1) Acute alcoholic pancreatitis ICD Codes: K85.20 - Alcohol induced acute pancreatitis without necrosis or infection SNOMED: 521140451 (2) Sigmoid diverticulitis ICD Codes: K57.32 - Diverticulitis of large intestine without perforation or abscess without bleeding SNOMED: 975001872 (3) Hypoalbuminemia ICD Codes: E88.09 - Other disorders of plasma-protein metabolism, not elsewhere classified SNOMED: 516396857 (4) Anemia ICD Codes: D64.9 - Anemia, unspecified SNOMED: 350873501 (5) Pancreatitis ICD Codes: K85.90 - Acute pancreatitis without necrosis or infection, unspecified SNOMED: 68479309 Status: stable, progressing Assessment/Plan macrocytic, hyperchromic anemia CT AP reviewed >> PE, sigmoid diverticulitis, fatty liver elevated lipase anemia work up regular diet OB stool r/o GI bleed monitor H&H, prn transfusions send for cdiff/stool studies ppi folate PO abx IV/PO hydration repeat imaging prn fu labs, lipase levels will need outpatient colonoscopy x 2 months after dc for diverticulitis Subjective Allergies: Coded Allergies: No Known Allergies (Unverified , 10/01/17) Subjective comfortable deniea abd pain minimally talkative Objective Last 24 Hour Vital Signs Date Time Temp Pulse Resp B/P (MAP) Pulse Ox O2 Delivery O2 Flow Rate FiO2 10/19/17 20:14 85 18 Room Air 21 10/19/17 19:53 98.2 73 20 127/59 97 Room Air 10/19/17 16:00 97.3 76 20 148/85 99 10/19/17 16:00 68 10/19/17 12:00 97.3 56 20 139/80 94 10/19/17 12:00 56 10/19/17 10:42 140/82 10/19/17 10:38 82 140/82 10/19/17 08:01 82 18 Room Air 21 10/19/17 08:00 97.3 69 20 140/82 95 10/19/17 08:00 74 10/19/17 04:59 96.8 68 18 112/93 94 Room Air 10/19/17 00:00 98.1 77 18 133/90 96 Room Air 10/18/17 20:49 79 153/89 10/18/17 20:48 153/89 Intake and Output 10/18/17 10/19/17 19:00 07:00 Intake Total 2326.201 ml 984.903 ml Output Total 1100 ml Balance 1226.201 ml 984.903 ml Intake Oral 600 ml IV Total 1726.201 ml 984.903 ml Output Urine Total 1100 ml # Voids 1 1 # Bowel Movements 3 3 Laboratory Tests 10/19/17 04:10: White Blood Count 8.1, Red Blood Count 2.46L, Hemoglobin 8.8L, Hematocrit 26.6L , Mean Corpuscular Volume 108H, Mean Corpuscular Hemoglobin 35.7H, Mean Corpuscular Hemoglobin Concent 33.1, Red Cell Distribution Width 14.4, Platelet Count 132L, Mean Platelet Volume 8.3, Neutrophils (%) (Auto) 61.5, Lymphocytes ( %) (Auto) 26.2, Monocytes (%) (Auto) 6.9, Eosinophils (%) (Auto) 4.6H, Basophils (%) (Auto) 0.8, Prothrombin Time 10.4, Prothromb Time International Ratio 1.0, Activated Partial Thromboplast Time 42H, Sodium Level 139, Potassium Level 3.3L, Chloride Level 106, Carbon Dioxide Level 23, Anion Gap 10, Blood Urea Nitrogen 5L, Creatinine 0.6, Estimat Glomerular Filtration Rate > 60, Glucose Level 96, Calcium Level 7.1L, Magnesium Level 1.5L, Lipase 718H 10/19/17 12:15: Activated Partial Thromboplast Time 72H Height (Feet): 5 Height (Inches): 10.00 Weight (Pounds): 198 Objective Elderly WM NCAT supple CTA RRR Soft ND NT trace edema non focal CARYN MOBLEY Oct 19, 2017 20:23
[2017-10-19] MEDS: Atorvastatin 20mg tab ORAL SCH (21:36)
[2017-10-19] MEDS: Levodopa/Carbidopa CR 50/200 tab ORAL SCH (21:57)
[2017-10-20] VITALS (8 sets, daily range): BP systolic 112–187; BP diastolic 64–96
[2017-10-20] MEDS: HydrALAZINE 25mg tab ORAL PRN (03:51)
[2017-10-20] MEDS: Zolpidem 5mg tab ORAL PRN ×2 (04:47→21:26)
[2017-10-20] MEDS: Norco 5mg/325mg tab ORAL PRN ×2 (04:50→21:26)
[2017-10-20] MEDS: Piperacillin/Tazobactam 3.375 GM in NS 110 ML IVPB SCH ×3 (08:10)
[2017-10-20] MEDS: Donepezil 10mg tab ORAL SCH (08:27)
[2017-10-20] MEDS: Aspirin EC 81mg tab ORAL SCH (08:28)
[2017-10-20] MEDS: Depakote 500mg tab ORAL SCH ×2 (08:30→21:24)
[2017-10-20] MEDS: Memantine 10mg tab ORAL SCH ×2 (08:30→21:25)
[2017-10-20] MEDS: NUPLAZID 17 MG ORAL SCH ×2 (08:38→21:25)
[2017-10-20] MEDS: Ramipril 5mg cap ORAL SCH ×2 (08:40→21:24)
[2017-10-20] MEDS: Metoprolol Succinate XL 25mg tab ORAL SCH ×2 (08:40→21:25)
[2017-10-20] MEDS: Xarelto 15mg tab ORAL SCH ×2 (08:54→17:31)
[2017-10-20] MEDS: Levodopa/Carbidopa 25/100 tab ORAL SCH ×2 (14:10→17:31)
--- NOTE | 2017-10-20 14:40 | Neurology Progress Note ---
Interim History Interim History Interim History Mr. Urbina feels very well. As per his he is not as bright today. He is in bed now. He is eating well as per his . He is able to breathe well. The mind has been clear. He has had no parkinsonian symptoms. He denies any new neurologic symptoms. Review of Systems Neuro Review of Systems Benign. Objective Physical Exam Last Vital Signs Date Time Temp Pulse Resp B/P (MAP) Pulse Ox O2 Delivery O2 Flow Rate FiO2 10/20/17 12:00 98.4 68 20 132/78 96 Room Air 10/20/17 07:09 21 10/17/17 16:00 2.0 Laboratory Tests Test 10/20/17 04:55 Prothrombin Time 10.6 SEC (9.30-11.50) Prothromb Time International Ratio 1.0 (0.9-1.1) Neurologic Exam Objective PHYSICAL EXAMINATION: GENERAL: He is a well-developed, well-nourished, pleasant gentleman, lying in bed, in no acute distress. HEAD: Normocephalic and atraumatic. EENT: Examination benign . NECK: No neck rigidity was observed. NEUROLOGIC EXAMINATION: MENTAL STATUS EXAMINATION: He was awake and alert. He was oriented to [facility], [facility], and October 20. He did not know the year. He was able to recall 3/3 words immediately, but could only remember 2/3 words in 1 minute and 3 minutes even on the second trial. He was able to remember presidents, Trump through [employer] with hints, but could not remember presidents prior to that even with hints. His mathematical skills were fairly good. His visuospatial function was preserved. SPEECH: He had no dysarthria. LANGUAGE: He had a mild anomia for low-frequency words. CRANIAL NERVE EXAMINATION: II: The visual hayes were intact on confrontation testing. III, IV & : The external ocular movements were full and the pupils 3 mm in diameter, equal, round, regular, and reactive to light. V: He had normal facial sensations, and the temporales, masseters, and pterygoids functioned normally. VII: He had normal facial expressions and no facial asymmetry. VIII: He was able to hear well bilaterally and had no nystagmus. IX: The palate moved symmetrically on phonation. X: He had no hoarseness of voice. XI: The sternocleidomastoids and trapezii functioned normally. XII: The tongue was in the midline without any fasciculations or atrophy. MOTOR SYSTEM: The tone was normal in all four extremities. Examination of muscle mass revealed no focal wasting. Examination of power revealed grade 5/5 power in all muscle groups tested. SENSORY EXAMINATION: He had intact sensations to pinprick, light touch, and graphesthesia. COORDINATION: He performed well on jxgdqa-nb-chum and iauk-fk-fwla testing. REFLEXES: 1++ and bilaterally symmetrical at the biceps, triceps, brachioradialis, and knees, trace positive at both ankles. The plantar responses were flexor bilaterally. STANCE & GAIT: He was able to stand up and walk well. ABNORMAL MOVEMENTS: Tremor (4 to 5 Hz): G 0/4. Rigidity: G 0/4. Bradykinesia: G 0/4. Hypomimia: G 0/4. Hypophonia: G 0/4. Parkinsonian stance: G 0/4. Parkinsonian gait: G 0/4. Impression/Recommendations Diagnostic Impression 1. Mr. Faisal Urbina is a 67-year-old, right-handed, gentleman, who does have a past history of hypertension, Lewy body dementia, and generalized seizures since November 2016, who for the last few days has been increasingly drowsy, felt unwell, has not been eating well, and was complaining of worsening shortness of breath and chest pain. He was brought into the [facility] emergency room and discovered to have extensive bilateral pulmonary emboli. He was started on intravenous heparin and has been significantly better. 2. He feels well. He has been able to walk well. He is eating better as per his . He is able to breathe well. The mind has been clear. He has had no parkinsonian symptoms. He denies any new neurologic symptoms. 3. On neurological examination at this time, he does have problems with orientation, recent and remote memory, a mild anomia, globally diminished deep tendon reflexes, but no parkinsonian signs. 4. The patient's history and neurological examination are most compatible with an underlying dementia labeled "Lewy body disease." He however is not exhibiting any parkinsonian signs at this point in time. The recent decline in function was most probably related to his pulmonary emboli. Recommendations 1. Continue present management. 2. Continue present neurological regimen of Sinemet, Aricept, and Namenda. 3. Treatment of pulmonary embolism as per Dr. Garcia. 4. Keep active. Lindsay Andrews M.D., M.S.P.[place]. LINDSAY ANDREWS Oct 20, 2017 14:40
--- NOTE | 2017-10-20 15:01 | General Progress Note ---
Assessment/Plan Assessment/Plan Assessment (1) Acute alcoholic pancreatitis ICD Codes: K85.20 - Alcohol induced acute pancreatitis without necrosis or infection SNOMED: 724559405 (2) Sigmoid diverticulitis ICD Codes: K57.32 - Diverticulitis of large intestine without perforation or abscess without bleeding SNOMED: 591825234 (3) Hypoalbuminemia ICD Codes: E88.09 - Other disorders of plasma-protein metabolism, not elsewhere classified SNOMED: 195727286 (4) Anemia ICD Codes: D64.9 - Anemia, unspecified SNOMED: 055059033 (5) Pancreatitis ICD Codes: K85.90 - Acute pancreatitis without necrosis or infection, unspecified SNOMED: 92213096 Status: stable, progressing Assessment/Plan macrocytic, hyperchromic anemia CT AP reviewed >> PE, sigmoid diverticulitis, fatty liver elevated lipase anemia work up regular diet OB stool r/o GI bleed monitor H&H, prn transfusions send for cdiff/stool studies ppi folate PO abx IV/PO hydration repeat imaging prn fu labs, lipase levels will need outpatient colonoscopy x 2 months after dc for diverticulitis Subjective Allergies: Coded Allergies: No Known Allergies (Unverified , 10/01/17) Subjective comfortable denies abd pain minimally talkative Objective Last 24 Hour Vital Signs Date Time Temp Pulse Resp B/P (MAP) Pulse Ox O2 Delivery O2 Flow Rate FiO2 10/20/17 12:00 64 10/20/17 12:00 98.4 68 20 132/78 96 Room Air 10/20/17 11:40 98.4 68 20 132/78 96 10/20/17 08:40 143/82 10/20/17 08:40 75 143/82 10/20/17 08:00 59 10/20/17 08:00 97.9 75 19 143/82 96 Room Air 10/20/17 07:37 98.4 62 20 152/71 96 10/20/17 07:09 85 18 Room Air 21 10/20/17 04:00 62 10/20/17 03:51 187/96 10/20/17 03:38 97.7 60 20 187/96 100 Room Air 10/20/17 00:51 98.2 77 20 132/64 98 Room Air 10/20/17 00:00 68 10/19/17 21:38 127/59 10/19/17 21:37 85 127/59 10/19/17 20:14 85 18 Room Air 21 10/19/17 20:00 55 10/19/17 19:53 98.2 73 20 127/59 97 Room Air 10/19/17 16:00 97.3 76 20 148/85 99 10/19/17 16:00 68 Intake and Output 10/19/17 10/20/17 19:00 07:00 Intake Total 152.931 ml Balance 152.931 ml Intake Oral 120 ml IV Total 32.931 ml # Voids 6 # Bowel Movements 4 3 Laboratory Tests 10/20/17 04:55: Prothrombin Time 10.6, Prothromb Time International Ratio 1.0 Height (Feet): 5 Height (Inches): 10.00 Weight (Pounds): 198 Objective Elderly WM NCAT supple CTA RRR Soft ND NT trace edema non focal CARYN MOBLEY Oct 20, 2017 15:01
--- NOTE | 2017-10-20 15:02 | General Progress Note ---
Assessment/Plan Assessment/Plan Assessment (1) Acute alcoholic pancreatitis ICD Codes: K85.20 - Alcohol induced acute pancreatitis without necrosis or infection SNOMED: 875716987 (2) Sigmoid diverticulitis ICD Codes: K57.32 - Diverticulitis of large intestine without perforation or abscess without bleeding SNOMED: 918435424 (3) Hypoalbuminemia ICD Codes: E88.09 - Other disorders of plasma-protein metabolism, not elsewhere classified SNOMED: 980703045 (4) Anemia ICD Codes: D64.9 - Anemia, unspecified SNOMED: 766329748 (5) Pancreatitis ICD Codes: K85.90 - Acute pancreatitis without necrosis or infection, unspecified SNOMED: 26334252 Status: stable, progressing Assessment/Plan macrocytic, hyperchromic anemia CT AP reviewed >> PE, sigmoid diverticulitis, fatty liver elevated lipase anemia work up regular diet OB stool r/o GI bleed monitor H&H, prn transfusions send for cdiff/stool studies ppi folate PO abx IV/PO hydration repeat imaging prn fu labs, lipase levels will need outpatient colonoscopy x 2 months after dc for diverticulitis Subjective Allergies: Coded Allergies: No Known Allergies (Unverified , 10/01/17) Subjective comfortable denies abd pain minimally talkative Objective Last 24 Hour Vital Signs Date Time Temp Pulse Resp B/P (MAP) Pulse Ox O2 Delivery O2 Flow Rate FiO2 10/20/17 12:00 64 10/20/17 12:00 98.4 68 20 132/78 96 Room Air 10/20/17 11:40 98.4 68 20 132/78 96 10/20/17 08:40 143/82 10/20/17 08:40 75 143/82 10/20/17 08:00 59 10/20/17 08:00 97.9 75 19 143/82 96 Room Air 10/20/17 07:37 98.4 62 20 152/71 96 10/20/17 07:09 85 18 Room Air 21 10/20/17 04:00 62 10/20/17 03:51 187/96 10/20/17 03:38 97.7 60 20 187/96 100 Room Air 10/20/17 00:51 98.2 77 20 132/64 98 Room Air 10/20/17 00:00 68 10/19/17 21:38 127/59 10/19/17 21:37 85 127/59 10/19/17 20:14 85 18 Room Air 21 10/19/17 20:00 55 10/19/17 19:53 98.2 73 20 127/59 97 Room Air 10/19/17 16:00 97.3 76 20 148/85 99 10/19/17 16:00 68 Intake and Output 10/19/17 10/20/17 19:00 07:00 Intake Total 152.931 ml Balance 152.931 ml Intake Oral 120 ml IV Total 32.931 ml # Voids 6 # Bowel Movements 4 3 Laboratory Tests 10/20/17 04:55: Prothrombin Time 10.6, Prothromb Time International Ratio 1.0 Height (Feet): 5 Height (Inches): 10.00 Weight (Pounds): 198 Objective Elderly WM NCAT supple CTA RRR Soft ND NT trace edema non focal CARYN MOBLEY Oct 20, 2017 15:02
--- NOTE | 2017-10-20 18:52 | General Progress Note ---
Assessment/Plan Assessment/Plan ASSESSMENT AND RECOMMENDATIONS: 1. Pulmonary emboli. Continue the patient on Xarelto. 2. Macrocytic hyperchromic anemia, currently downtrending 3. Alcoholic pancreatitis, with elevated lipase 3. Diverticulitis, gi following 4. Atherosclerotic disease. He has been seen by Cardiology Service. 5. Lewy body dementia. He has been seen by Neurology. Continue current medications. 6. Dehydration and weakness. Continue fluids as needed. 8. Acute kidney injury due to dehydration. 9. Lactic acidosis, positive cultures noted. 10. Continue empiric antibiotics. Subjective Allergies: Coded Allergies: No Known Allergies (Unverified , 10/01/17) All Systems: reviewed and negative except above Subjective afebrile Objective Last 24 Hour Vital Signs Date Time Temp Pulse Resp B/P (MAP) Pulse Ox O2 Delivery O2 Flow Rate FiO2 10/20/17 16:00 74 10/20/17 15:39 98.1 76 20 131/72 98 10/20/17 12:00 64 10/20/17 12:00 98.4 68 20 132/78 96 Room Air 10/20/17 11:40 98.4 68 20 132/78 96 10/20/17 08:40 143/82 10/20/17 08:40 75 143/82 10/20/17 08:00 59 10/20/17 08:00 97.9 75 19 143/82 96 Room Air 10/20/17 07:37 98.4 62 20 152/71 96 10/20/17 07:09 85 18 Room Air 21 10/20/17 04:00 62 10/20/17 03:51 187/96 10/20/17 03:38 97.7 60 20 187/96 100 Room Air 10/20/17 00:51 98.2 77 20 132/64 98 Room Air 10/20/17 00:00 68 10/19/17 21:38 127/59 10/19/17 21:37 85 127/59 10/19/17 20:14 85 18 Room Air 21 10/19/17 20:00 55 10/19/17 19:53 98.2 73 20 127/59 97 Room Air Intake and Output 10/19/17 10/20/17 19:00 07:00 Intake Total 152.931 ml Balance 152.931 ml Intake Oral 120 ml IV Total 32.931 ml # Voids 6 # Bowel Movements 4 3 Laboratory Tests 10/20/17 04:55: Prothrombin Time 10.6, Prothromb Time International Ratio 1.0 Height (Feet): 5 Height (Inches): 10.00 Weight (Pounds): 198 General Appearance: alert EENT: normal ENT inspection, TMs normal Neck: normal alignment Cardiovascular: normal peripheral pulses Abdomen: normal bowel sounds Extremities: non-tender Edema: trace edema Janak Garcia Oct 20, 2017 18:52
[2017-10-20] MEDS: Atorvastatin 20mg tab ORAL SCH (21:24)
[2017-10-20] MEDS: Levodopa/Carbidopa CR 50/200 tab ORAL SCH (21:25)
[2017-10-21] VITALS: BP 148/97
[2017-10-21 04:00] VITALS: BP 140/75
[2017-10-21 08:00] VITALS: BP 154/82
[2017-10-21] MEDS: Depakote 500mg tab ORAL SCH ×2 (09:32→21:28)
[2017-10-21] MEDS: Donepezil 10mg tab ORAL SCH (09:32)
[2017-10-21] MEDS: Aspirin EC 81mg tab ORAL SCH (09:32)
[2017-10-21] MEDS: Ramipril 5mg cap ORAL SCH ×2 (09:32→21:28)
[2017-10-21] MEDS: Memantine 10mg tab ORAL SCH ×2 (09:32→21:28)
[2017-10-21] MEDS: Metoprolol Succinate XL 25mg tab ORAL SCH ×2 (09:33→21:28)
[2017-10-21] MEDS: Xarelto 15mg tab ORAL SCH ×2 (09:33→17:15)
[2017-10-21] MEDS: NUPLAZID 17 MG ORAL SCH ×2 (09:34→22:07)
[2017-10-21] MEDS: Levodopa/Carbidopa 25/100 tab ORAL SCH ×2 (10:15→12:51)
--- NOTE | 2017-10-21 10:47 | Infectious Diseases Prog Note ---
Assessment/Plan Assessment/Plan Abx: IV Vanco 10/16-10/19 Zosyn 10/16- Assessment: Sigmoid diverticulitis and pancreatitis -CT abd/p: Sigmoid diverticulitis. No abscess. Fatty liver. Atherosclerotic disease Perinephric stranding nonspecific. -Lipase ~1k Lactic acidosis- 2ry to above- resolved Afebrile, mild leukocytosis- resoled 10/24 CoNS Bacteremia- likely contaminant- -10/15 10/24+; 10/19 Bcx NTD x4 B/E extensive PE -CTA chest: Extensive bilateral pulmonary embolus. Atherosclerotic disease. Minimal posterior basal atelectasis. The lungs are essentially clear with the exception of some minimal posterior basilar reticulation Lewy body dementia (dx ~5yrs ago) diverticulosis with diverticulitis HTN seizures disorder Plan: -Continue Zosyn #6/7 for diverticulitis; upon discharge can transition to PO Cipro and Flagyl -10/19 SP IV Vanco #4 -f/u repeat bcx -Monitor CBC/CMP, temperatures -Aspiration precautions Thank you for this consultation. Will continue to follow along with you. Discussed with RN. Subjective Allergies: Coded Allergies: No Known Allergies (Unverified , 10/01/17) Subjective afebrile no leukocytosis repeat Bcx NTD Objective Vital Signs Last 24 Hour Vital Signs Date Time Temp Pulse Resp B/P (MAP) Pulse Ox O2 Delivery O2 Flow Rate FiO2 10/21/17 09:33 89 154/82 10/21/17 09:32 154/82 10/21/17 08:00 98.4 89 20 154/82 98 Room Air 10/21/17 07:57 85 20 Room Air 10/21/17 04:00 67 10/21/17 04:00 97.7 56 16 140/75 98 Room Air 10/21/17 00:00 97.5 83 18 148/97 98 Room Air 10/21/17 00:00 79 10/20/17 21:25 77 112/70 10/20/17 21:24 112/70 10/20/17 20:00 98.2 77 18 112/70 94 Room Air 10/20/17 20:00 77 10/20/17 19:30 79 20 Room Air 21 10/20/17 16:00 74 10/20/17 15:39 98.1 76 20 131/72 98 10/20/17 12:00 64 10/20/17 12:00 98.4 68 20 132/78 96 Room Air 10/20/17 11:40 98.4 68 20 132/78 96 Height (Feet): 5 Height (Inches): 10.00 Weight (Pounds): 198 Objective GENERAL: No distress. PULMONARY: Decreased breath sounds. CARDIOVASCULAR: Regular rate. No S3 or S4. ABDOMEN: Soft, nontender, and nondistended. EXTREMITIES: A 1+ edema. Microbiology Date/Time Source Procedure Growth Status 10/19/17 12:00 Blood Blood Culture - Preliminary NO GROWTH AFTER 24 HOURS Resulted Current Medications Medications (Trade) Dose Ordered Sig/Patricia Route PRN Reason Start Time Stop Time Status Last Admin Dose Admin Acetaminophen/ Hydrocodone Bitart ([place] 5/325) 1 tab Q8H PRN ORAL For Pain 10/20/17 04:15 10/27/17 04:14 10/20/17 21:26 Albuterol/ Ipratropium (Albuterol/ Ipratropium) 3 ml Q4H PRN HHN Shortness of Breath 10/18/17 11:15 10/23/17 11:14 Aspirin (Ecotrin) 81 mg DAILY ORAL 10/17/17 09:00 11/16/17 08:59 10/21/17 09:32 Atorvastatin Calcium (Lipitor) 20 mg BEDTIME ORAL 10/16/17 21:00 11/15/17 20:59 10/20/17 21:24 Carbidopa/Levodopa (Sinemet 25/100) 5 ea THREE TIMES A DAY ORAL 10/16/17 18:00 11/15/17 17:59 10/21/17 10:15 Carbidopa/Levodopa (Sinemet CR 50/ 200) 2 ea QHS ORAL 10/16/17 21:00 11/15/17 20:59 10/20/17 21:25 Dextrose (Dextrose 50%) STAT PRN IV Hypoglycemia 10/16/17 09:30 11/15/17 09:29 Divalproex Sodium (Depakote) 500 mg EVERY 12 HOURS ORAL 10/17/17 21:00 11/16/17 20:59 10/21/17 09:32 Donepezil HCl (Aricept) 10 mg DAILY ORAL 10/17/17 09:00 11/16/17 08:59 10/21/17 09:32 Ergocalciferol (Drisdol) 50,000 intlu QWEEK ORAL 10/17/17 09:00 11/16/17 08:59 10/17/17 11:27 Flecainide Acetate (Tambocor) 50 mg Q12HR ORAL 10/16/17 13:00 11/15/17 12:59 10/21/17 09:32 Folic Acid (Folate) 1 mg DAILY ORAL 10/17/17 09:15 11/16/17 09:14 10/21/17 09:32 Hydralazine HCl (Apresoline) 25 mg Q6H PRN ORAL SBP > 160mmHg 10/16/17 13:00 11/15/17 12:59 10/20/17 03:51 Levetiracetam (Keppra) 1,000 mg Q12HR ORAL 10/16/17 14:00 11/15/17 13:59 10/21/17 09:32 Memantine (Namenda) 10 mg Q12HR ORAL 10/16/17 21:00 11/15/17 20:59 10/21/17 09:32 Metoprolol Succinate (Toprol XL) 25 mg Q12HR ORAL 10/16/17 15:45 11/15/17 15:44 10/21/17 09:33 Patient Own Medication (Patient's Own Med) 1 ea Q12HR ORAL 10/16/17 21:00 11/15/17 20:59 10/21/17 09:34 Ramipril (Altace) 5 mg Q12HR ORAL 10/16/17 21:00 11/15/17 20:59 10/21/17 09:32 Rivaroxaban (Xarelto) 15 mg BID ORAL 10/20/17 09:00 11/09/17 08:59 10/21/17 09:33 Rivaroxaban (Xarelto) 20 mg DAILY ORAL 11/09/17 09:00 12/09/17 08:59 Zolpidem Tartrate (Ambien) 5 mg HSPRN PRN ORAL Insomnia 10/20/17 04:15 10/27/17 04:14 10/20/17 21:26 Dee Mora M.D. Oct 21, 2017 10:47
--- NOTE | 2017-10-21 11:46 | Neurology Progress Note ---
Interim History Interim History Interim History Mr. Urbina feels well. He is in bed now. He spends all day in bed and only gets up for a few minutes at a time. He is eating well. He is able to breathe well. The mind has been clear. He has had no parkinsonian symptoms. He denies any new neurologic symptoms. Objective Physical Exam Last Vital Signs Date Time Temp Pulse Resp B/P (MAP) Pulse Ox O2 Delivery O2 Flow Rate FiO2 10/21/17 09:33 89 154/82 10/21/17 08:00 98.4 20 98 Room Air 10/21/17 07:57 21 10/17/17 16:00 2.0 Neurologic Exam Objective PHYSICAL EXAMINATION: GENERAL: He is a well-developed, well-nourished, pleasant gentleman, lying in bed, in no acute distress. HEAD: Normocephalic and atraumatic. EENT: Examination benign . NECK: No neck rigidity was observed. NEUROLOGIC EXAMINATION: MENTAL STATUS EXAMINATION: He was awake and alert. He was oriented to [facility], [facility], and October 21. He did not know the year. He was able to recall 3/3 words immediately, but could only remember 2/3 words in 1 minute and 3 minutes even on the second trial. He was able to remember presidents, Trump through [employer] with hints, but could not remember presidents prior to that even with hints. His mathematical skills were fairly good. His visuospatial function was preserved. SPEECH: He had no dysarthria. LANGUAGE: He had a mild anomia for low-frequency words. CRANIAL NERVE EXAMINATION: II: The visual hayes were intact on confrontation testing. III, IV & : The external ocular movements were full and the pupils 3 mm in diameter, equal, round, regular, and reactive to light. V: He had normal facial sensations, and the temporales, masseters, and pterygoids functioned normally. VII: He had normal facial expressions and no facial asymmetry. VIII: He was able to hear well bilaterally and had no nystagmus. IX: The palate moved symmetrically on phonation. X: He had no hoarseness of voice. XI: The sternocleidomastoids and trapezii functioned normally. XII: The tongue was in the midline without any fasciculations or atrophy. MOTOR SYSTEM: The tone was normal in all four extremities. Examination of muscle mass revealed no focal wasting. Examination of power revealed grade 5/5 power in all muscle groups tested. SENSORY EXAMINATION: He had intact sensations to pinprick, light touch, and graphesthesia. COORDINATION: He performed well on mlevlq-iz-koay and svaa-uj-scpt testing. REFLEXES: 1++ and bilaterally symmetrical at the biceps, triceps, brachioradialis, and knees, trace positive at both ankles. The plantar responses were flexor bilaterally. STANCE & GAIT: He was able to stand up and walk well. ABNORMAL MOVEMENTS: Tremor (4 to 5 Hz): G 0/4. Rigidity: G 0/4. Bradykinesia: G 0/4. Hypomimia: G 0/4. Hypophonia: G 0/4. Parkinsonian stance: G 0/4. Parkinsonian gait: G 0/4. Impression/Recommendations Diagnostic Impression 1. Mr. Faisal Urbina is a 67-year-old, right-handed, gentleman, who does have a past history of hypertension, Lewy body dementia, and generalized seizures since November 2016, who for the last few days has been increasingly drowsy, felt unwell, has not been eating well, and was complaining of worsening shortness of breath and chest pain. He was brought into the [facility] emergency room and discovered to have extensive bilateral pulmonary emboli. He was started on intravenous heparin and has been significantly better. 2. He feels well. He has been able to walk well. He is eating better. He is able to breathe well. The mind has been clear. He has had no parkinsonian symptoms. He denies any new neurologic symptoms. 3. On neurological examination at this time, he does have problems with orientation, recent and remote memory, a mild anomia, globally diminished deep tendon reflexes, but no parkinsonian signs. 4. The patient's history and neurological examination are most compatible with an underlying dementia labeled "Lewy body disease." He however is not exhibiting any parkinsonian signs at this point in time. The recent decline in function was most probably related to his pulmonary emboli. Recommendations 1. Continue present management. 2. Continue present neurological regimen of Sinemet, Aricept, and Namenda. 3. Treatment of pulmonary embolism as per Dr. Garcia. 4. Keep active. Lindsay Andrews M.D., M.S.P.H. LINDSAY ANDREWS Oct 21, 2017 11:46
[2017-10-21 12:00] VITALS: BP 103/48
--- NOTE | 2017-10-21 12:49 | Cardiac Electrophysiology PN ---
Subjective Subjective [id number] Objective Last 24 Hour Vital Signs Date Time Temp Pulse Resp B/P (MAP) Pulse Ox O2 Delivery O2 Flow Rate FiO2 10/21/17 09:33 89 154/82 10/21/17 09:32 154/82 10/21/17 08:00 98.4 89 20 154/82 98 Room Air 10/21/17 08:00 51 10/21/17 07:57 85 20 Room Air 21 10/21/17 04:00 67 10/21/17 04:00 97.7 56 16 140/75 98 Room Air 10/21/17 00:00 97.5 83 18 148/97 98 Room Air 10/21/17 00:00 79 10/20/17 21:25 77 112/70 10/20/17 21:24 112/70 10/20/17 20:00 98.2 77 18 112/70 94 Room Air 10/20/17 20:00 77 10/20/17 19:30 79 20 Room Air 21 10/20/17 16:00 74 10/20/17 15:39 98.1 76 20 131/72 98 Intake and Output 10/20/17 10/21/17 19:00 07:00 Intake Total 725 ml 360 ml Output Total 400 ml 400 ml Balance 325 ml -40 ml Intake Oral 725 ml 360 ml Output Urine Total 400 ml 400 ml # Voids 4 Microbiology Date/Time Source Procedure Growth Status 10/19/17 12:00 Blood Blood Culture - Preliminary NO GROWTH AFTER 24 HOURS Resulted DREW HUTCHINS Oct 21, 2017 12:49
[2017-10-21] MEDS ORDERED: Tubing IV Secondary IV ONE (14:35)
[2017-10-21] MEDS ORDERED: NS 275ml ONE (14:35)
[2017-10-21] MEDS ORDERED: NS 500ML ONE (14:49)
--- NOTE | 2017-10-21 16:15 | Consultation ---
DATE OF CONSULTATION: 10/21/2017 CARDIOLOGY CONSULTATION CONSULTING PHYSICIAN: Diego Davison M.D. REFERRING PHYSICIAN: Janak Garcia M.D. REASON FOR CONSULTATION: Abnormal EKG suggestive of anterolateral ischemia. HISTORY OF PRESENT ILLNESS: The patient is a 67-year-old gentleman with history of hypertension and Lewy body dementia, who presented with his to the hospital with generalized weakness as well as syncopal episode versus near syncope. The patient's Adderall was recently increased by [facility] neurologist. The patient was admitted, however, on a 12-lead EKG. The patient was found to have anterior T-wave inversions suggestive of ischemia. The patient, however, denies any chest pain, palpitation, or shortness of breath. PAST MEDICAL HISTORY: As mentioned above. MEDICATIONS: Include aspirin, Lipitor, Sinemet, flecainide 50 mg b.i.d., metoprolol 25 mg b.i.d., and ramipril 5 mg b.i.d. SOCIAL HISTORY: He lives at home with his . FAMILY HISTORY: Noncontributory. REVIEW OF SYSTEMS: Negative other than what is mentioned in the history of present illness. PHYSICAL EXAMINATION: VITAL SIGNS: Blood pressure of 151/82, pulse is 89, respirations 18, and he is afebrile. HEAD AND NECK: Shows no JVD or carotid bruits. LUNGS: Clear. CARDIOVASCULAR: Regular S1 and S2 with no gallop or murmur. ABDOMEN: Soft. EXTREMITIES: No pitting edema. LABORATORY AND DIAGNOSTIC DATA: Labs show white count of 8.1, hemoglobin 8.8, hematocrit 26.6, and platelet count of 132,000. Sodium 139, potassium 3.3, BUN of 5, creatinine 0.6, and glucose of 96. HDL is 66. Troponin was negative. ASSESSMENT AND PLAN: 1. Abnormal electrocardiogram with anterior ST-T-wave abnormalities. The patient does not have any chest pain. The patient is already on aspirin, Lipitor, and Toprol-XL 25 mg b.i.d. that will be continued. 2. Paroxysmal atrial fibrillation. The patient is currently in sinus rhythm, on Xarelto 20 mg daily in addition to Toprol-XL 25 mg b.i.d. and flecainide 50 mg b.i.d. 3. Hypertension. Continue Toprol and ramipril 5 mg b.i.d. 4. Hyperlipidemia, on Lipitor. 5. Lewy body dementia and generalized seizures. Further evaluation by Dr. Negrete. 6. Extensive bilateral pulmonary emboli, currently on anticoagulation with Xarelto per plastic joint maker as confirmed by CT angiogram that showed extensive bilateral pulmonary emboli. Thank you very much, Dr. Garcia, for allowing me to participate in the care of this patient. Please do not hesitate to contact me for any questions regarding my evaluation. Diego Davison M.D. DR: Nova JOB#: [id number] CC:
--- NOTE | 2017-10-21 17:13 | General Progress Note ---
Assessment/Plan Assessment/Plan Assessment (1) Acute alcoholic pancreatitis ICD Codes: K85.20 - Alcohol induced acute pancreatitis without necrosis or infection SNOMED: 457867755 (2) Sigmoid diverticulitis ICD Codes: K57.32 - Diverticulitis of large intestine without perforation or abscess without bleeding SNOMED: 510840633 (3) Hypoalbuminemia ICD Codes: E88.09 - Other disorders of plasma-protein metabolism, not elsewhere classified SNOMED: 245173181 (4) Anemia ICD Codes: D64.9 - Anemia, unspecified SNOMED: 220885541 (5) Pancreatitis ICD Codes: K85.90 - Acute pancreatitis without necrosis or infection, unspecified SNOMED: 21025955 Status: stable, progressing Assessment/Plan macrocytic, hyperchromic anemia CT AP reviewed >> PE, sigmoid diverticulitis, fatty liver elevated lipase anemia work up regular diet OB stool r/o GI bleed monitor H&H, prn transfusions send for cdiff/stool studies ppi folate PO abx IV/PO hydration repeat imaging prn fu labs, lipase levels will need outpatient colonoscopy x 2 months after dc for diverticulitis Subjective Allergies: Coded Allergies: No Known Allergies (Unverified , 10/01/17) Subjective comfortable denies abd pain Out of bed tolerating PO Objective Last 24 Hour Vital Signs Date Time Temp Pulse Resp B/P (MAP) Pulse Ox O2 Delivery O2 Flow Rate FiO2 10/21/17 12:00 75 10/21/17 12:00 97.2 73 20 103/48 99 Room Air 10/21/17 09:33 89 154/82 10/21/17 09:32 154/82 10/21/17 08:00 98.4 89 20 154/82 98 Room Air 10/21/17 08:00 51 10/21/17 07:57 85 20 Room Air 21 10/21/17 04:00 67 10/21/17 04:00 97.7 56 16 140/75 98 Room Air 10/21/17 00:00 97.5 83 18 148/97 98 Room Air 10/21/17 00:00 79 10/20/17 21:25 77 112/70 10/20/17 21:24 112/70 10/20/17 20:00 98.2 77 18 112/70 94 Room Air 10/20/17 20:00 77 10/20/17 19:30 79 20 Room Air 21 Intake and Output 10/20/17 10/21/17 19:00 07:00 Intake Total 725 ml 360 ml Output Total 400 ml 400 ml Balance 325 ml -40 ml Intake Oral 725 ml 360 ml Output Urine Total 400 ml 400 ml # Voids 4 Height (Feet): 5 Height (Inches): 10.00 Weight (Pounds): 198 Objective Elderly WM NCAT supple CTA RRR Soft ND NT trace edema non focal CARYN MOBLEY Oct 21, 2017 17:13
[2017-10-21] MEDS ORDERED: SINEMET ORAL SCH (18:00)
[2017-10-21 20:00] VITALS: BP 155/88
--- NOTE | 2017-10-21 20:04 | General Progress Note ---
Assessment/Plan Problem List: (1) Syncope ICD Codes: R55 - Syncope and collapse SNOMED: 887525444 (2) Saddle pulmonary embolus ICD Codes: I26.92 - Saddle embolus of pulmonary artery without acute cor pulmonale SNOMED: 638664042973594 (3) Hypoalbuminemia ICD Codes: E88.09 - Other disorders of plasma-protein metabolism, not elsewhere classified SNOMED: 086270752 (4) Sigmoid diverticulitis ICD Codes: K57.32 - Diverticulitis of large intestine without perforation or abscess without bleeding SNOMED: 126932271 Status: progressing Assessment/Plan afebrile pulmonary embolus anticoagulation per heme/onc moniter for bleeding Subjective ROS Limited/Unobtainable: Yes Allergies: Coded Allergies: No Known Allergies (Unverified , 10/01/17) Objective Last 24 Hour Vital Signs Date Time Temp Pulse Resp B/P (MAP) Pulse Ox O2 Delivery O2 Flow Rate FiO2 10/21/17 16:00 69 10/21/17 12:00 75 10/21/17 12:00 97.2 73 20 103/48 99 Room Air 10/21/17 09:33 89 154/82 10/21/17 09:32 154/82 10/21/17 08:00 98.4 89 20 154/82 98 Room Air 10/21/17 08:00 51 10/21/17 07:57 85 20 Room Air 21 10/21/17 04:00 67 10/21/17 04:00 97.7 56 16 140/75 98 Room Air 10/21/17 00:00 97.5 83 18 148/97 98 Room Air 10/21/17 00:00 79 10/20/17 21:25 77 112/70 10/20/17 21:24 112/70 Intake and Output 10/20/17 10/21/17 19:00 07:00 Intake Total 725 ml 360 ml Output Total 400 ml 400 ml Balance 325 ml -40 ml Intake Oral 725 ml 360 ml Output Urine Total 400 ml 400 ml # Voids 4 Height (Feet): 5 Height (Inches): 10.00 Weight (Pounds): 198 Connie Gómez MD Oct 21, 2017 20:04
[2017-10-21] MEDS: Zolpidem 5mg tab ORAL PRN (21:28)
[2017-10-21] MEDS: Levodopa/Carbidopa CR 50/200 tab ORAL SCH (21:28)
[2017-10-21] MEDS: Atorvastatin 20mg tab ORAL SCH (21:29)
--- NOTE | 2017-10-21 22:28 | General Progress Note ---
Assessment/Plan Status: stable, progressing Subjective Date patient seen: Oct 19, 2017 Neurologic/Psychiatric: Reports: anxiety, depressed, emotional problems Allergies: Coded Allergies: No Known Allergies (Unverified , 10/01/17) Objective Last 24 Hour Vital Signs Date Time Temp Pulse Resp B/P (MAP) Pulse Ox O2 Delivery O2 Flow Rate FiO2 10/21/17 21:36 68 20 Room Air 21 10/21/17 21:28 155/88 10/21/17 21:28 66 155/88 10/21/17 20:00 97.0 66 18 155/88 100 10/21/17 16:00 69 10/21/17 12:00 75 10/21/17 12:00 97.2 73 20 103/48 99 Room Air 10/21/17 09:33 89 154/82 10/21/17 09:32 154/82 10/21/17 08:00 98.4 89 20 154/82 98 Room Air 10/21/17 08:00 51 10/21/17 07:57 85 20 Room Air 21 10/21/17 04:00 67 10/21/17 04:00 97.7 56 16 140/75 98 Room Air 10/21/17 00:00 97.5 83 18 148/97 98 Room Air 10/21/17 00:00 79 Intake and Output 10/20/17 10/21/17 19:00 07:00 Intake Total 725 ml 360 ml Output Total 400 ml 400 ml Balance 325 ml -40 ml Intake Oral 725 ml 360 ml Output Urine Total 400 ml 400 ml # Voids 4 Height (Feet): 5 Height (Inches): 10.00 Weight (Pounds): 198 General Appearance: no apparent distress, alert Neurologic: alert, oriented x 3, responsive Caitlyn Rousseau M.D. Oct 21, 2017 22:27
--- NOTE | 2017-10-21 22:28 | Geriatric Progress Note ---
Subjective Interval Events 10/20/17 Mood/Memory: Reports: prior hx, anxiety, depressed feelings, emotional problems Geriatric Geriatric Last 24 Hour Vital Signs Date Time Temp Pulse Resp B/P (MAP) Pulse Ox O2 Delivery O2 Flow Rate FiO2 10/21/17 21:36 68 20 Room Air 21 10/21/17 21:28 155/88 10/21/17 21:28 66 155/88 10/21/17 20:00 97.0 66 18 155/88 100 10/21/17 16:00 69 10/21/17 12:00 75 10/21/17 12:00 97.2 73 20 103/48 99 Room Air 10/21/17 09:33 89 154/82 10/21/17 09:32 154/82 10/21/17 08:00 98.4 89 20 154/82 98 Room Air 10/21/17 08:00 51 10/21/17 07:57 85 20 Room Air 21 10/21/17 04:00 67 10/21/17 04:00 97.7 56 16 140/75 98 Room Air 10/21/17 00:00 97.5 83 18 148/97 98 Room Air 10/21/17 00:00 79 Intake and Output 10/20/17 10/21/17 19:00 07:00 Intake Total 725 ml 360 ml Output Total 400 ml 400 ml Balance 325 ml -40 ml Intake Oral 725 ml 360 ml Output Urine Total 400 ml 400 ml # Voids 4 Current Medications Medications (Trade) Dose Ordered Sig/Patricia Route PRN Reason Start Time Stop Time Status Last Admin Dose Admin Acetaminophen/ Hydrocodone Bitart ([place] 5/325) 1 tab Q8H PRN ORAL For Pain 10/20/17 04:15 10/27/17 04:14 10/20/17 21:26 Albuterol/ Ipratropium (Albuterol/ Ipratropium) 3 ml Q4H PRN HHN Shortness of Breath 10/18/17 11:15 10/23/17 11:14 Aspirin (Ecotrin) 81 mg DAILY ORAL 10/17/17 09:00 11/16/17 08:59 10/21/17 09:32 Atorvastatin Calcium (Lipitor) 20 mg BEDTIME ORAL 10/16/17 21:00 11/15/17 20:59 10/21/17 21:29 Carbidopa/Levodopa (Sinemet CR 50/ 200) 2 ea QHS ORAL 10/16/17 21:00 11/15/17 20:59 10/21/17 21:28 Dextrose (Dextrose 50%) STAT PRN IV Hypoglycemia 10/16/17 09:30 11/15/17 09:29 Diphenhydramine HCl (Benadryl) 25 mg Q8HR PRN ORAL Itching 10/21/17 12:15 11/20/17 12:14 10/21/17 12:51 Divalproex Sodium (Depakote) 500 mg EVERY 12 HOURS ORAL 10/17/17 21:00 11/16/17 20:59 10/21/17 21:28 Donepezil HCl (Aricept) 10 mg DAILY ORAL 10/17/17 09:00 11/16/17 08:59 10/21/17 09:32 Ergocalciferol (Drisdol) 50,000 intlu QWEEK ORAL 10/17/17 09:00 11/16/17 08:59 10/17/17 11:27 Flecainide Acetate (Tambocor) 50 mg Q12HR ORAL 10/16/17 13:00 11/15/17 12:59 10/21/17 21:28 Folic Acid (Folate) 1 mg DAILY ORAL 10/17/17 09:15 11/16/17 09:14 10/21/17 09:32 Hydralazine HCl (Apresoline) 25 mg Q6H PRN ORAL SBP > 160mmHg 10/16/17 13:00 11/15/17 12:59 10/20/17 03:51 Levetiracetam (Keppra) 1,000 mg Q12HR ORAL 10/16/17 14:00 11/15/17 13:59 10/21/17 17:41 Memantine (Namenda) 10 mg Q12HR ORAL 10/16/17 21:00 11/15/17 20:59 10/21/17 21:28 Metoprolol Succinate (Toprol XL) 25 mg Q12HR ORAL 10/16/17 15:45 11/15/17 15:44 10/21/17 21:28 Patient Own Medication (Patient's Own Med) 1 ea Q12HR ORAL 10/16/17 21:00 11/15/17 20:59 10/21/17 22:07 Patient Own Medication (Patient's Own Med) 5 ea TID ORAL 10/21/17 18:00 11/20/17 17:59 10/21/17 17:15 Ramipril (Altace) 5 mg Q12HR ORAL 10/16/17 21:00 11/15/17 20:59 10/21/17 21:28 Rivaroxaban (Xarelto) 15 mg BID ORAL 10/20/17 09:00 11/09/17 08:59 10/21/17 17:15 Rivaroxaban (Xarelto) 20 mg DAILY ORAL 11/09/17 09:00 12/09/17 08:59 Zolpidem Tartrate (Ambien) 5 mg HSPRN PRN ORAL Insomnia 10/20/17 04:15 10/27/17 04:14 10/21/17 21:28 Height (Feet): 5 Height (Inches): 10.00 Weight (Pounds): 198 Caitlyn Rousseau M.D. Oct 21, 2017 22:28
[2017-10-22] VITALS: BP 155/93
[2017-10-22 04:00] VITALS: BP 147/89
[2017-10-22 08:00] VITALS: BP 118/67
[2017-10-22] MEDS: Donepezil 10mg tab ORAL SCH (09:37)
[2017-10-22] MEDS: Aspirin EC 81mg tab ORAL SCH (09:37)
[2017-10-22] MEDS: Ramipril 5mg cap ORAL SCH (09:38)
[2017-10-22] MEDS: Xarelto 15mg tab ORAL SCH ×2 (09:38→17:40)
[2017-10-22] MEDS: Metoprolol Succinate XL 25mg tab ORAL SCH (09:39)
[2017-10-22] MEDS: Memantine 10mg tab ORAL SCH (09:39)
[2017-10-22] MEDS: Depakote 500mg tab ORAL SCH (09:39)
[2017-10-22] MEDS: NUPLAZID 17 MG ORAL SCH (09:40)
--- NOTE | 2017-10-22 11:40 | Cardiac Electrophysiology PN ---
Assessment/Plan Assessment/Plan 1. Abnormal electrocardiogram with anterior ST-T-wave abnormalities. The patient does not have any chest pain. Continue aspirin, Lipitor, and Toprol -XL 25 mg b.i.d. Stress test after PE resolved 2. Paroxysmal atrial fibrillation. In sinus rhythm, on Xarelto 20 mg daily, Toprol-XL 25 mg b.i.d. and flecainide 50 mg b.i.d. 3. Hypertension. Continue Toprol and ramipril 5 mg b.i.d. 4. Hyperlipidemia, on Lipitor. 5. Lewy body dementia and generalized seizures. Further evaluation by Dr. Negrete. 6. Extensive bilateral pulmonary emboli by CT ,On Xarelto per special projects manager Subjective Subjective Feeling better. No chest pain or SOB. Sitter at bedside. Objective Last 24 Hour Vital Signs Date Time Temp Pulse Resp B/P (MAP) Pulse Ox O2 Delivery O2 Flow Rate FiO2 10/22/17 09:39 76 118/67 10/22/17 09:38 118/67 10/22/17 08:00 97.9 76 19 118/67 96 Room Air 10/22/17 07:51 54 20 Room Air 21 10/22/17 04:00 97.0 62 18 147/89 98 10/22/17 04:00 67 10/22/17 00:00 98.8 77 18 155/93 98 10/22/17 00:00 66 10/21/17 21:36 68 20 Room Air 21 10/21/17 21:28 155/88 10/21/17 21:28 66 155/88 10/21/17 20:00 97.0 66 18 155/88 100 10/21/17 20:00 81 10/21/17 16:00 69 10/21/17 12:00 75 10/21/17 12:00 97.2 73 20 103/48 99 Room Air Intake and Output 10/21/17 10/22/17 19:00 07:00 Intake Total 600 ml Balance 600 ml Intake Oral 600 ml # Voids 3 # Bowel Movements 1 2 Microbiology Date/Time Source Procedure Growth Status 10/19/17 12:15 Blood Blood Culture - Preliminary NO GROWTH AFTER 48 HOURS Resulted 10/19/17 12:00 Blood Blood Culture - Preliminary NO GROWTH AFTER 48 HOURS Resulted Objective HEAD AND NECK: Shows no JVD or carotid bruits. LUNGS: Clear. CARDIOVASCULAR: Regular S1 and S2 with no gallop or murmur. ABDOMEN: Soft. EXTREMITIES: No pitting edema. DREW HUTCHINS Oct 22, 2017 11:40
--- NOTE | 2017-10-22 12:24 | General Progress Note ---
Assessment/Plan Status: stable, progressing Assessment/Plan psychosis encephalopathy agitation cont current meds Subjective Date patient seen: Oct 22, 2017 Neurologic/Psychiatric: Reports: anxiety, depressed, emotional problems Allergies: Coded Allergies: No Known Allergies (Unverified , 10/01/17) Subjective the pt was asleep. arousable. calm at times agitated Objective Last 24 Hour Vital Signs Date Time Temp Pulse Resp B/P (MAP) Pulse Ox O2 Delivery O2 Flow Rate FiO2 10/22/17 09:39 76 118/67 10/22/17 09:38 118/67 10/22/17 08:00 97.9 76 19 118/67 96 Room Air 10/22/17 07:51 54 20 Room Air 21 10/22/17 04:00 97.0 62 18 147/89 98 10/22/17 04:00 67 10/22/17 00:00 98.8 77 18 155/93 98 10/22/17 00:00 66 10/21/17 21:36 68 20 Room Air 21 10/21/17 21:28 155/88 10/21/17 21:28 66 155/88 10/21/17 20:00 97.0 66 18 155/88 100 10/21/17 20:00 81 10/21/17 16:00 69 Intake and Output 10/21/17 10/22/17 19:00 07:00 Intake Total 600 ml Balance 600 ml Intake Oral 600 ml # Voids 3 # Bowel Movements 1 2 Height (Feet): 5 Height (Inches): 10.00 Weight (Pounds): 198 General Appearance: no apparent distress, alert, agitated Caitlyn Rousseau M.D. Oct 22, 2017 12:24
--- NOTE | 2017-10-22 12:59 | Infectious Diseases Prog Note ---
Assessment/Plan Assessment/Plan Abx: IV Vanco 10/16-10/19 Zosyn 10/16- Assessment: Sigmoid diverticulitis and pancreatitis -CT abd/p: Sigmoid diverticulitis. No abscess. Fatty liver. Atherosclerotic disease Perinephric stranding nonspecific. -Lipase ~1k Lactic acidosis- 2ry to above- resolved Afebrile, mild leukocytosis- resoled 10/24 CoNS Bacteremia- likely contaminant- -10/15 1+; 10/19 Bcx NTD x4 B/E extensive PE -CTA chest: Extensive bilateral pulmonary embolus. Atherosclerotic disease. Minimal posterior basal atelectasis. The lungs are essentially clear with the exception of some minimal posterior basilar reticulation Lewy body dementia (dx ~5yrs ago) diverticulosis with diverticulitis HTN seizures disorder Plan: -COntinue to monitor off abx -10/20 SP IV ZOsyn #5 -10/19 SP IV Vanco #4 -f/u repeat bcx -Monitor CBC/CMP, temperatures -Aspiration precautions Thank you for this consultation. Will continue to follow along with you. Discussed with RN. Subjective Allergies: Coded Allergies: No Known Allergies (Unverified , 10/01/17) Subjective afebrile no leukocytosis repeat Bcx NTD Objective Vital Signs Last 24 Hour Vital Signs Date Time Temp Pulse Resp B/P (MAP) Pulse Ox O2 Delivery O2 Flow Rate FiO2 10/22/17 09:39 76 118/67 10/22/17 09:38 118/67 10/22/17 08:00 97.9 76 19 118/67 96 Room Air 10/22/17 07:51 54 20 Room Air 21 10/22/17 04:00 97.0 62 18 147/89 98 10/22/17 04:00 67 10/22/17 00:00 98.8 77 18 155/93 98 10/22/17 00:00 66 10/21/17 21:36 68 20 Room Air 21 10/21/17 21:28 155/88 10/21/17 21:28 66 155/88 10/21/17 20:00 97.0 66 18 155/88 100 10/21/17 20:00 81 10/21/17 16:00 69 Height (Feet): 5 Height (Inches): 10.00 Weight (Pounds): 198 Objective GENERAL: No distress. PULMONARY: Decreased breath sounds. CARDIOVASCULAR: Regular rate. No S3 or S4. ABDOMEN: Soft, nontender, and nondistended. EXTREMITIES: A 1+ edema. Current Medications Medications (Trade) Dose Ordered Sig/Patricia Route PRN Reason Start Time Stop Time Status Last Admin Dose Admin Acetaminophen/ Hydrocodone Bitart ([place] 5/325) 1 tab Q8H PRN ORAL For Pain 10/20/17 04:15 10/27/17 04:14 10/20/17 21:26 Albuterol/ Ipratropium (Albuterol/ Ipratropium) 3 ml Q4H PRN HHN Shortness of Breath 10/18/17 11:15 10/23/17 11:14 Aspirin (Ecotrin) 81 mg DAILY ORAL 10/17/17 09:00 11/16/17 08:59 10/22/17 09:37 Atorvastatin Calcium (Lipitor) 20 mg BEDTIME ORAL 10/16/17 21:00 11/15/17 20:59 10/21/17 21:29 Carbidopa/Levodopa (Sinemet 25/100) 5 ea TID ORAL 10/22/17 13:00 11/21/17 12:59 Carbidopa/Levodopa (Sinemet CR 50/ 200) 2 ea QHS ORAL 10/16/17 21:00 11/15/17 20:59 10/21/17 21:28 Dextrose (Dextrose 50%) STAT PRN IV Hypoglycemia 10/16/17 09:30 11/15/17 09:29 Diphenhydramine HCl (Benadryl) 25 mg Q8HR PRN ORAL Itching 10/21/17 12:15 11/20/17 12:14 10/21/17 12:51 Divalproex Sodium (Depakote) 500 mg EVERY 12 HOURS ORAL 10/17/17 21:00 11/16/17 20:59 10/22/17 09:39 Donepezil HCl (Aricept) 10 mg DAILY ORAL 10/17/17 09:00 11/16/17 08:59 10/22/17 09:37 Ergocalciferol (Drisdol) 50,000 intlu QWEEK ORAL 10/17/17 09:00 11/16/17 08:59 10/17/17 11:27 Flecainide Acetate (Tambocor) 50 mg Q12HR ORAL 10/16/17 13:00 11/15/17 12:59 10/22/17 09:38 Folic Acid (Folate) 1 mg DAILY ORAL 10/17/17 09:15 11/16/17 09:14 10/22/17 09:39 Hydralazine HCl (Apresoline) 25 mg Q6H PRN ORAL SBP > 160mmHg 10/16/17 13:00 11/15/17 12:59 10/20/17 03:51 Levetiracetam (Keppra) 1,000 mg Q12HR ORAL 10/16/17 14:00 11/15/17 13:59 10/22/17 09:38 Memantine (Namenda) 10 mg Q12HR ORAL 10/16/17 21:00 11/15/17 20:59 10/22/17 09:39 Metoprolol Succinate (Toprol XL) 25 mg Q12HR ORAL 10/16/17 15:45 11/15/17 15:44 10/22/17 09:39 Patient Own Medication (Patient's Own Med) 1 ea Q12HR ORAL 10/16/17 21:00 11/15/17 20:59 10/22/17 09:40 Ramipril (Altace) 5 mg Q12HR ORAL 10/16/17 21:00 11/15/17 20:59 10/22/17 09:38 Rivaroxaban (Xarelto) 15 mg BID ORAL 10/20/17 09:00 11/09/17 08:59 10/22/17 09:38 Rivaroxaban (Xarelto) 20 mg DAILY ORAL 11/09/17 09:00 12/09/17 08:59 Zolpidem Tartrate (Ambien) 5 mg HSPRN PRN ORAL Insomnia 10/20/17 04:15 10/27/17 04:14 10/21/17 21:28 Dee Mora M.D. Oct 22, 2017 12:59
[2017-10-22] MEDS: Levodopa/Carbidopa 25/100 tab ORAL SCH ×2 (13:02→17:40)
--- NOTE | 2017-10-22 19:51 | General Progress Note ---
Assessment/Plan Assessment/Plan ASSESSMENT AND RECOMMENDATIONS: 1. Pulmonary emboli. Continue the patient on Xarelto. 2. Macrocytic hyperchromic anemia, currently downtrending --> pt is to receive blood transfusion --> continue to trend H/H daily 3. Alcoholic pancreatitis, with elevated lipase 3. Diverticulitis, gi following 4. Atherosclerotic disease. He has been seen by Cardiology Service. 5. Lewy body dementia. He has been seen by Neurology. Continue current medications. 6. Dehydration and weakness. Continue fluids as needed. 8. Acute kidney injury due to dehydration. 9. Lactic acidosis, positive cultures noted. 10. Continue empiric antibiotics. Subjective Allergies: Coded Allergies: No Known Allergies (Unverified , 10/01/17) All Systems: reviewed and negative except above Subjective afebrile Objective Last 24 Hour Vital Signs Date Time Temp Pulse Resp B/P (MAP) Pulse Ox O2 Delivery O2 Flow Rate FiO2 10/22/17 16:00 63 10/22/17 15:00 63 10/22/17 12:00 63 10/22/17 09:39 76 118/67 10/22/17 09:38 118/67 10/22/17 08:00 97.9 76 19 118/67 96 Room Air 10/22/17 07:51 54 20 Room Air 21 10/22/17 04:00 97.0 62 18 147/89 98 10/22/17 04:00 67 10/22/17 00:00 98.8 77 18 155/93 98 10/22/17 00:00 66 10/21/17 21:36 68 20 Room Air 21 10/21/17 21:28 155/88 10/21/17 21:28 66 155/88 10/21/17 20:00 97.0 66 18 155/88 100 10/21/17 20:00 81 Intake and Output 10/21/17 10/22/17 19:00 07:00 Intake Total 600 ml Balance 600 ml Intake Oral 600 ml # Voids 3 # Bowel Movements 1 2 Height (Feet): 5 Height (Inches): 10.00 Weight (Pounds): 198 General Appearance: no apparent distress EENT: normal ENT inspection Neck: normal alignment Cardiovascular: normal peripheral pulses Respiratory/Chest: chest wall non-tender Abdomen: normal bowel sounds 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
[2017-10-22 20:00] VITALS: BP 148/90
--- NOTE | 2017-10-22 20:11 | Neurology Progress Note ---
Interim History Interim History Interim History Mr. Urbina feels very well. He is in bed now. He has been eating well. He is able to breathe well. The mind has been clear. He has had no parkinsonian symptoms. He denies any new neurologic symptoms. Plans are to go home today. Review of Systems Neuro Review of Systems Benign. Objective Physical Exam Last Vital Signs Date Time Temp Pulse Resp B/P (MAP) Pulse Ox O2 Delivery O2 Flow Rate FiO2 10/22/17 16:00 63 10/22/17 09:39 118/67 10/22/17 08:00 97.9 19 96 Room Air 10/22/17 07:51 21 10/17/17 16:00 2.0 Neurologic Exam Objective PHYSICAL EXAMINATION: GENERAL: He is a well-developed, well-nourished, pleasant gentleman, lying in bed, in no acute distress. HEAD: Normocephalic and atraumatic. EENT: Examination benign . NECK: No neck rigidity was observed. NEUROLOGIC EXAMINATION: MENTAL STATUS EXAMINATION: He was awake and alert. He was oriented to [facility], [facility], and October 2017. He did not know the date. He was able to recall 3/3 words immediately, but could only remember 2/3 words in 1 minute and 3 minutes even on the second trial. He was able to remember presidents, Trump through [employer] with hints, but could not remember presidents prior to that even with hints. His mathematical skills were fairly good. His visuospatial function was preserved. SPEECH: He had no dysarthria. LANGUAGE: He had a mild anomia for low-frequency words. CRANIAL NERVE EXAMINATION: II: The visual hayes were intact on confrontation testing. III, IV & : The external ocular movements were full and the pupils 3 mm in diameter, equal, round, regular, and reactive to light. V: He had normal facial sensations, and the temporales, masseters, and pterygoids functioned normally. VII: He had normal facial expressions and no facial asymmetry. VIII: He was able to hear well bilaterally and had no nystagmus. IX: The palate moved symmetrically on phonation. X: He had no hoarseness of voice. XI: The sternocleidomastoids and trapezii functioned normally. XII: The tongue was in the midline without any fasciculations or atrophy. MOTOR SYSTEM: The tone was normal in all four extremities. Examination of muscle mass revealed no focal wasting. Examination of power revealed grade 5/5 power in all muscle groups tested. SENSORY EXAMINATION: He had intact sensations to pinprick, light touch, and graphesthesia. COORDINATION: He performed well on nyupiv-rm-kpqg and epdi-bj-rdff testing. REFLEXES: 1++ and bilaterally symmetrical at the biceps, triceps, brachioradialis, and knees, trace positive at both ankles. The plantar responses were flexor bilaterally. STANCE & GAIT: He was able to stand up and walk well. ABNORMAL MOVEMENTS: Tremor (4 to 5 Hz): G 0/4. Rigidity: G 0/4. Bradykinesia: G 0/4. Hypomimia: G 0/4. Hypophonia: G 0/4. Parkinsonian stance: G 0/4. Parkinsonian gait: G 0/4. Dyskinesia: G 1/4 OBL Dystonia: G 1/4 UEs Impression/Recommendations Diagnostic Impression 1. Mr. Faisal Urbina is a 67-year-old, right-handed, gentleman, who does have a past history of hypertension, Lewy body dementia, and generalized seizures since November 2016, who for the last few days has been increasingly drowsy, felt unwell, has not been eating well, and was complaining of worsening shortness of breath and chest pain. He was brought into the [facility] emergency room and discovered to have extensive bilateral pulmonary emboli. He was started on intravenous heparin and has been significantly better. 2. He feels well. He has been able to walk well. He is eating better. He is able to breathe well. The mind has been clear. He has had no parkinsonian symptoms. He denies any new neurologic symptoms. 3. On neurological examination at this time, he does have problems with orientation, recent and remote memory, a mild anomia, globally diminished deep tendon reflexes, but no parkinsonian signs. He is however exhibiting elpidio-bucco- lingual dyskinesia and upper extremity dystonia. 4. The patient's history and neurological examination are most compatible with an underlying dementia labeled "Lewy body disease." He however is not exhibiting any parkinsonian signs at this point in time. The recent decline in function was most probably related to his pulmonary emboli. He is exhibiting dyskinesias and dystonia most probably due to the large doses of dopaminergic drugs he is getting. Recommendations 1. Continue present management. 2. Continue present neurological regimen of Sinemet, Aricept, and Namenda. 3. Follow up with Dr. Echavarria in near future. 4. Keep active. Lindsay Andrews M.D., M.S.P.H. LINDSAY ANDREWS Oct 22, 2017 20:11
--- NOTE | 2017-10-22 21:18 | General Progress Note ---
Assessment/Plan Problem List: (1) Syncope ICD Codes: R55 - Syncope and collapse SNOMED: 250161034 (2) Saddle pulmonary embolus ICD Codes: I26.92 - Saddle embolus of pulmonary artery without acute cor pulmonale SNOMED: 428100591054479 (3) Hypoalbuminemia ICD Codes: E88.09 - Other disorders of plasma-protein metabolism, not elsewhere classified SNOMED: 465068211 (4) Sigmoid diverticulitis ICD Codes: K57.32 - Diverticulitis of large intestine without perforation or abscess without bleeding SNOMED: 815022558 Status: progressing Assessment/Plan reviewed chart and labs pulmonary embolus anticoagulation per heme/onc moniter for bleeding syncopd Subjective ROS Limited/Unobtainable: Yes Allergies: Coded Allergies: No Known Allergies (Unverified , 10/01/17) Objective Last 24 Hour Vital Signs Date Time Temp Pulse Resp B/P (MAP) Pulse Ox O2 Delivery O2 Flow Rate FiO2 10/22/17 20:00 98.3 61 18 148/90 98 Room Air 10/22/17 16:00 63 10/22/17 15:00 63 10/22/17 12:00 63 10/22/17 09:39 76 118/67 10/22/17 09:38 118/67 10/22/17 08:00 97.9 76 19 118/67 96 Room Air 10/22/17 07:51 54 20 Room Air 21 10/22/17 04:00 97.0 62 18 147/89 98 10/22/17 04:00 67 10/22/17 00:00 98.8 77 18 155/93 98 10/22/17 00:00 66 10/21/17 21:36 68 20 Room Air 21 10/21/17 21:28 155/88 10/21/17 21:28 66 155/88 Intake and Output 10/21/17 10/22/17 19:00 07:00 Intake Total 600 ml Balance 600 ml Intake Oral 600 ml # Voids 3 # Bowel Movements 1 2 Height (Feet): 5 Height (Inches): 10.00 Weight (Pounds): 198 Cardiovascular: normal rate Respiratory/Chest: lungs clear Connie Gómez MD Oct 22, 2017 21:18
--- NOTE | 2017-10-23 16:14 | Cardiology Report ---
APPROVED REPORT EKG Measurement Heart [id number] Sinus rhythm with premature atrial complexes Prolonged QT Abnormal ECG
--- NOTE | 2017-10-25 12:46 | Discharge Summary ---
Discharge Summary Hospital Course Date of Admission Oct 15, 2017 at 18:15 Date of Discharge Oct 22, 2017 at 20:40 Admitting Diagnosis SYNCOPE HPI Faisal Gregorio Urbina Jr is a 67 year old male who was admitted on Oct 15, 2017 at 18:15 for Syncope Hospital Course [id number] Discharge Discharge Disposition Patient was discharged to home Discharge Diagnoses: Moira Wakefield NP Oct 25, 2017 12:46
--- NOTE | 2017-10-25 23:30 | Discharge Summary 2 SIG ---
DATE OF ADMISSION: 10/15/2017 DATE OF DISCHARGE: 10/22/2017 CONSULTANTS: 1. Janak Garcia M.D. 2. Caitlyn Rousseau M.D. 3. Dee Mora M.D. 4. Geovanna Queen M.D. 5. Julius Negrete M.D. 6. Quintin Elizondo M.D. 7. Diego Davison M.D. BRIEF HOSPITAL COURSE: The patient is a 67-year-old male who has past medical history significant for Lewy body dementia as well as diverticulitis presented to ED for complaints of generalized weakness and questionable syncopal episode with increased lethargy. On evaluation at ED, chest CT showed extensive bilateral pulmonary embolus. He was then started on heparin drip. The patient has underlying dementia labeled Lewy body disease, although he is not exhibiting any Parkinsonian sign at this time. He was noted to have elevated lactic acidosis and lipase was elevated to 1013. CT of the abdomen showed fatty liver with sigmoid diverticulitis. No abscess. He was given IV vancomycin and Zosyn. There was findings of abnormal EKG. He was found to have anterior T-wave inversion suggestive of ischemia. The patient was on aspirin, Lipitor, and Toprol-XL 25 mg b.i.d. and flecainide 50 mg b.i.d. He denies any chest pain. He was eventually taken off of heparin drip and was placed on Xarelto. He was recommended need for stress test as outpatient after pulmonary issues were resolved. He had episodes of confusion and agitation. He was given Depakote and Prozac. Diet was advanced. Lipase level downtrended. He had an episode of drop in hemoglobin and received one unit of packed RBC. He was eventually discharged home. FINAL DIAGNOSES: 1. Acute pulmonary embolism. 2. Lewy body dementia. 3. Syncope. 4. Acute anemia status post transfusion. 5. Alcoholic pancreatitis with elevated lipase. 6. Diverticulitis. 7. Acute kidney injury due to dehydration. 8. Lactic acidosis with positive cultures. 9. Sigmoid diverticulitis. 10. Coagulase-negative bacteremia most likely contaminant. 11. Seizure disorder. 12. Hypertension. 13. Agitation. 14. Paroxysmal atrial fibrillation. 15. Hyperlipidemia. 16. Encephalopathy. 17. Psychosis. DISPOSITION: The patient was discharged home. DISCHARGE MEDICATIONS: Refer to medication list. DISCHARGE INSTRUCTIONS: Follow up with PMD in a week. He will eventually need an outpatient stress testing done once pulmonary issues were resolved. Connie Gómez M.D. I have been assigned to dictate discharge summary on this account and I was not involved in the patient's management. Moira Wakefield N.P. DR: FELICIANO JOB#: [id number] CC: LAURA
[2017-11-09] MEDS ORDERED: Xarelto 10mg tab ORAL SCH (09:00)
== END 2017-10-22 20:40 | disposition home or self-care (01) | DRG 175 ==
LOC: EDBD 16:32 → EMR 17:28 → 2W 18:15 → ICU 18:15 → EDBEDREQ 19:36 → EDBEDREQSVC 19:36 → EDBEDREQ 21:27 → 2W 10-16 13:24 → 2E 10-18 22:34
PROC: 30233N1 Transfusion of Nonautologous Red Blood Cells into Peripheral Vein, Percutaneous Approach (ICD-10-PCS; principal; 2017-10-22)
DX: I26.92 Saddle embolus of pulmonary artery without acute cor pulmonale (principal); G93.40 Encephalopathy, unspecified; N17.9 Acute kidney failure, unspecified; E87.2 Acidosis; K85.20 Alcohol induced acute pancreatitis without necrosis or infection; I48.0 Paroxysmal atrial fibrillation; K57.32 Diverticulitis of large intestine without perforation or abscess without bleeding; D69.6 Thrombocytopenia, unspecified; I10 Essential (primary) hypertension; G40.409 Other generalized epilepsy and epileptic syndromes, not intractable, without status epilepticus; E88.09 Other disorders of plasma-protein metabolism, not elsewhere classified; E86.0 Dehydration; G31.83 Neurocognitive disorder with Lewy bodies; D64.9 Anemia, unspecified; F02.80 Dementia in other diseases classified elsewhere, unspecified severity, without behavioral disturbance, psychotic disturbance, mood disturbance, and anxiety; E78.5 Hyperlipidemia, unspecified; Z23 Encounter for immunization; K70.0 Alcoholic fatty liver; D72.829 Elevated white blood cell count, unspecified; I25.10 Atherosclerotic heart disease of native coronary artery without angina pectoris; F41.9 Anxiety disorder, unspecified; F32.89 Other specified depressive episodes; F29 Unspecified psychosis not due to a substance or known physiological condition; Z79.01 Long term (current) use of anticoagulants; R45.1 Restlessness and agitation
CPT/HCPCS: 36415; 71010; 71275; 74177; 80048; 80053; 80061; 80202; 80299; 81003; 82150; 82270; 82378; 82550; 82553; 82607; 82728; 82746; 82962; 83540; 83550; 83605; 83690; 83735; 84100; 84439; 84443; 84484; 85007; 85025; 85044; 85610; 85730; 86850; 86900; 86901; 86920; 87040; 87081; 87181; 90630; 90732; 93005; 94664; J8499